=== PATIENT | female | born 1950 | race Caucasian/White ===

== ENCOUNTER → 2016-04-10 | Outpatient (CLI) | payer OTHER ==
[~2016-04-10] VITALS: Ht 154.9 cm; Wt 71.4 kg
[~2016-04-10] MED LIST: BUPRENORPHINE HC2 MG SL; CARVEDILOL6.25 MG PO; CLONIDINE 2; COREG; COREG CR20 MG PO; ENDOCET 10-3251 EACH; ENOXAPARIN40 MG/0.1 SUBQ; FENTANYL; FLEXERIL PO; FUROSEMIDE PO; HYDROCODON-ACE1 EAC5; INTRATHECAL MED; KEFLEX500 MG PO; LASIX 20 MG TAB20 MG; LASIX 20 MG TAB20 MG PO; LISINOPRIL5 MG; LOVENOX SQ; MEDROLDOSEPACK PO; NEURONTIN100 MG PO; NITROQUICK0.4 MG SL; OXYCODONE-ACET1 EAC2 PO; PERCOCET 10-321 EACH PO; PERCOCET 5-3251 EACH PO; VANCOMYCIN100 MG/M1 PO; ZOCOR20 MG PO
--- NOTE | ~2016-04-10 | HPC ---
[facility] [place] [address] PAIN MANAGEMENT CONSULTATION Name: MARJORIE WING Room #: REG SHERIF Gilbert.#: [id number] Admission: 04/10/16 Attend Phys: Lc Reyes MD Discharge: Date of : 50 Report #: [id number] THIS REPORT FOR: //name// CC: JODY SUAREZ DATE OF SERVICE: 04/10/2016 HISTORY OF PRESENT ILLNESS: The patient returns to pain clinic today for refill of her intrathecal infusion pump and she will need a replacement pump sometime within the next 6 months. Her CINDY is now down to 6 months. Today, she presents complaining of severe pain in the right knee. She says that when they put her knee in, they did not have the right side, so they just took one off the shelf. I am sure this is not true; however, she is continued to complain of pain and swelling in that knee. She also has low back pain with radiculopathy, which responded favorably to a transforaminal epidural injection, which was performed in January. She has a little complaint today of radicular symptom. Intrathecal pump infusing a combination of bupivacaine, clonidine and fentanyl. She has done well with current dosing, no changes will be necessary. PHYSICAL EXAMINATION: GENERAL: She is delightful, pleasant, alert and oriented, without signs of depression, anxiety. She is able to move from sitting to standing position, walks with antalgic features owing to the swelling in her right knee. She does not complain of radicular features. Straight leg raising is negative for radicular pain, but it does exacerbate pain in the knee joint. She has tenderness there. VITAL SIGNS: Blood pressure is 122/73, heart rate 58. She is 5 feet 1. BMI of 29.8. Pump is in the right lower quadrant. IMPRESSION: 1. Chronic back pain with radiculopathy. 2. Hypertension. 3. Osteoarthritis, status post right knee replacement with persistent right knee pain. 4. Management of intrathecal infusion pump with refill. She will need a new pump this year. 5. Management of high risk medication. I provided with some breakthrough oxycodone one tablet q. 6 hours as needed under terms of an opioid agreement. She uses 1 to 2 tablets a day, typically on occasion 4. She also uses gabapentin, which has been helpful for neuropathic symptoms. PROCEDURE: Skin was prepped with ChloraPrep, skin anesthetized 22-gauge [address] [address] PAIN MANAGEMENT CONSULTATION Name: MARJORIE WING [id number] Admission: 04/10/16 Attend Phys: Lc Reyes MD Discharge: Date of : 50 Report #: [id number] non-coring needle advanced in the pump. Old medication removed and discarded. Pump refilled with a combination of clonidine, bupivacaine and fentanyl. Reprogramming session was performed. She remains on low-dose maximally taking 143 mcg of fentanyl per day, clonidine, maximal 1436 mcg a day and bupivacaine 14 mg a day. This is quite a high dose of clonidine, but she has established, which she came to our clinic is been on the same dose for some time tolerating it well. PLAN: I renewed her pain medications under terms of an opioid agreement and we have reviewed the details with important aspects of safeguarding medications that are not out of her hands at any time. She is to get medication from only one physician, use one pharmacy. Followup visit planned in 1to 2 months. Information regarding this patient in our hope that Dr. Harding will replace her pump for us going forward in the next few months. <ELECTRONICALLY SIGNED> By: Lc Reyes MD 05/11/16 1130 1631 0054 Lc Reyes MD /nt
[2016-04-10 14:40] VITALS: BP 122/73
== END | disposition home or self-care (01) ==
LOC: PAIN 03-27 06:18
DX: M54.16 Radiculopathy, lumbar region (principal); I10 Essential (primary) hypertension; M17.11 Unilateral primary osteoarthritis, right knee; G89.29 Other chronic pain; Z96.651 Presence of right artificial knee joint

== ENCOUNTER → 2016-07-25 | Outpatient (CLI) | payer OTHER ==
[~2016-07-25] VITALS: Ht 154.9 cm; Wt 74.1 kg
--- NOTE | ~2016-07-25 | HPC ---
[facility] [place] [address] PAIN MANAGEMENT CONSULTATION Name: MARJORIE WING Room #: REG SHERIF Holland#: [id number] Admission: 07/25/16 Attend Phys: Ishmael Conte DO Discharge: Date of : 50 Report #: [id number] THIS REPORT FOR: //name// CC: KRISTIN Conte DATE OF SERVICE: 07/25/2016 SUBJECTIVE: The patient is a very pleasant 66-year-old female seen today in followup. She was last seen by Dr. Lc Reyes, on 06/03/2016, continued with her intrathecal pump. She had the pump replaced by Dr. Stephan Harding last week, 07/18/2016. A new 40 mL pump was implanted. It was refilled with fentanyl, clonidine and bupivacaine (fentanyl 200 mcg/mL, clonidine 2000 mcg/mL, bupivacaine 20 mg/mL). She is continued on simple continuous infusion with fentanyl being the driving drug at 85.07 mcg a day. She returns to the pain clinic today. She has been unable to use her PTM, it needs to be decoupled from the device. She notes pain that has been increasing in the low back since the surgery. PHYSICAL EXAMINATION: SKIN: The incision site in the abdomen looks excellent. It is healing quite nicely. No inflammation or induration is noted. VITAL SIGNS: She is afebrile with temperature 97.3. Vital signs are otherwise stable. ASSESSMENT: Status post intrathecal pump replacement, increasing axial back pain in a patient with a history of chronic low back pain and lumbar radiculopathy. RECOMMENDATIONS: After discussion with the patient today, we have elected to start the patient on [id number] nonsteroidal anti-inflammatory medication to help with prostaglandin-mediated axial back pain. Aleve 220 b.i.d. Continue p.r.n. medications including Percocet 10/325 up to 4 a day. The intrathecal pump was interrogated today. The new refill date is 09/04/2016. I will have her follow up with Dr. Lc Reyes next week for consideration for injecting into the facet joints if indicated and/or trigger point injections. Otherwise, we will ask her to bring the PTM with her, so we can decouple it and reinitiate it with her new pump. [address] [address] PAIN MANAGEMENT CONSULTATION Name: MARJORIE WING Room #: REG SHERIF Lino#: [id number] Admission: 07/25/16 Attend Phys: Ishmael Conte DO Discharge: Date of : 50 Report #: [id number] The patient was discharged in good and stable condition after approximately 15-minute office visit. <ELECTRONICALLY SIGNED> By: Ishmael Conte DO 07/26/16 0925 1523 0710 Ishmael Conte, DO /nt
[2016-07-25 14:33] VITALS: BP 129/88
== END ==
LOC: PAIN 08:03
DX: Z45.1 Encounter for adjustment and management of infusion pump (principal); M54.16 Radiculopathy, lumbar region; I10 Essential (primary) hypertension

== ENCOUNTER → 2016-08-01 | Outpatient (CLI) | payer OTHER ==
[~2016-08-01] VITALS: Ht 154.9 cm; Wt 69.3 kg
--- NOTE | ~2016-08-01 | HPC ---
[facility] [address] [place] [address] PAIN MANAGEMENT CONSULTATION Name: MARJORIE WING Room #: REG SHERIF Gilbert.#: [id number] Admission: 08/01/16 Attend Phys: Lc Reyes MD Discharge: Date of : 50 Report #: [id number] THIS REPORT FOR: //name// CC: Stephan SUAREZ DATE OF SERVICE: 08/01/2016 DATE OF REGISTRATION: 08/01/2016. REASON FOR VISIT: Followup visit for intrathecal pump management. SUBJECTIVE: I am seeing the patient today in followup for her recently placed intrathecal pump. She is recovering from surgery, although she had a period of time once again where she suffered with intractable nausea, vomiting and also diarrhea. Last time, this happened to her, condition was dire. She presented to the emergency room with an acute kidney failure due to dehydration. She developed C. difficile from antibiotics. Per emergency room physician in [facility], recognized immediately her condition, treated her aggressively with intravenous fluids, and she survived with complete resolution. has been grateful for his quick action. We were concerned today because of her similar symptoms, and she looks a little pale and gone. She says she feels okay. She is drinking well. Symptoms have passed. Nonetheless, I felt important that we would pursue some electrolytes today as well as a BUN and creatinine to make sure that she is not having further problems. Overall, pain control is adequate, although her PTM device is not working. I reprogrammed it for her while she was in the office. We adjusted her intrathecal infusion pump to the coupling. PHYSICAL EXAMINATION: GENERAL: She appears a bit pale. VITAL SIGNS: Her blood pressure is 135/88, heart rate is 60. Her BMI is 28.9. CHEST: Clear. CARDIAC: Rhythm is regular with no audible murmur. ABDOMEN: Soft. Pump is in the right lower quadrant with good healing, no evidence of infection. There is some fluid around the pocket, which is to be expected. IMPRESSION: 1. Chronic intractable low back pain with radiculopathy. 2. Hypertension. [facility] [address] [place] [address] PAIN MANAGEMENT CONSULTATION Name: MARJORIE WING Room #: REG SHERIF Lino#: [id number] Admission: 08/01/16 Attend Phys: Lc Reyes MD Discharge: Date of : 50 Report #: [id number] 3. Osteoarthritis, status post knee replacement. 4. Management of intrathecal infusion pump with new settings and reprogramming. 5. Management of high risk medications. 6. History of renal insufficiency. PLAN: Blood was sent for electrolytes, BUN and creatinine. It shows that she has some dehydration with an elevated creatinine and BUN. She was called to notify. Otherwise, electrolytes are normal. Followup visit is planned for refill in about 2-3 months. By: 1355 [id number] Lc Reyes MD /nt
[2016-08-01 09:33] VITALS: BP 166/89
[2016-08-01 11:06] LABS: CREATININE 1.3 mg/dL (0.6-1.0); POTASSIUM 3.9 mmol/L (3.5-5.1)
== END ==
LOC: PAIN 07:24
PROVIDERS: Anesthesiology Pain Medicine
DX: M54.10 Radiculopathy, site unspecified (principal); I10 Essential (primary) hypertension; G89.29 Other chronic pain; E11.9 Type 2 diabetes mellitus without complications

== ENCOUNTER 2016-08-13 20:13 | Inpatient (IN) | payer OTHER ==
[~2016-08-13] VITALS: Ht 152.4 cm; Wt 78.9 kg
[2016-08-13] VITALS (8 sets, daily range): BP systolic 72–164; BP diastolic 41–135
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
--- NOTE | ~2016-08-13 | 2DMMODE ---
[facility] [address] [place] [address] 2 D/M-MODE ECHOCARDIOGRAM Name: MARJORIE WING Room #: 236-P [facility]#: [id number] Admission: 08/13/16 Attend Phys: Harpal Cronin, Discharge: Date of : 50 Date of Service: 08/14/16 1241 Report #: [id number] THIS REPORT FOR: //name// APPROVED REPORT Study performed: 08/14/2016 08:45:21 EXAM: Comprehensive 2D, Doppler, and color-flow Echocardiogram Patient Location: Bedside Room #: 236 Blood Pressure: 130/70 mmHg HR: 56 bpm Rhythm: NSR Other Information Study Quality: Adequate Indications CAD, HTN, history of HI, defibrillator, cardiac arrest 2006 2D Dimensions RVDd: 33.99 mm LVEF(%): 47.95 (>50%) IVSd: 7.12 (7-11mm) LVOT Diam: 19.59 (18-24mm) LVDd: 45.39 mm PWd: 7.24 (7-11mm) Ascending Ao: 30.87 (22-36mm) LVDs: 34.49 (25-40mm) Aortic Root: 28.26 mm Carroll's LVEF: 47.95 % Volumes Left Atrial Volume (Systole) Single Plane 4CH: 31.48 mL Single Plane 2CH: 45.77 mL LA ESV Index: 24.00 mL/m2 Aortic Valve AoV Peak Slade.: 1.30 m/s AO Peak Gr.: 6.80 mmHg LVOT Max P.81 mmHg LVOT Max V: 0.98 m/s ALEJANDRA Vmax: 2.25 cm2 Mitral Valve E/A Ratio: 1.5 [facility] [place] [place] [address] 2 D/M-MODE ECHOCARDIOGRAM Name: MARJORIE WING Room #: 236-[facility]#: [id number] Admission: 08/13/16 Attend Phys: Harpal Cronin, Discharge: Date of : 50 Date of Service: 08/14/16 1241 Report #: [id number] MV Decel. Time: 175.49 ms MV E Max Slade.: 1.01 m/s MV A Slade.: 0.68 m/s MV PHT: 50.89 ms IVRT: 101.50 ms Pulmonary Valve PV Peak Slade.: 0.96 m/s PV Peak Gr.: 3.72 mmHg Pulmonary Vein P Vein S: 0.40 m/s P Vein A: 0.30 m/s P Vein D: 0.51 m/s P Vein A Dur.: 156.9 msec P Vein S/D Ratio: 0.78 Tricuspid Valve TR Peak Slade.: 2.16 m/s RAP Estimate: 5.00 mmHg TR Peak Gr.: 18.58 mmHg RVSP: 24.00 mmHg Left Ventricle The left ventricle is normal size. There is normal left ventricular wall thickness. Left ventricular systolic function is mildly decreased. Discordant septal motion possibly from RV pacing. LVEF is 45%. Grade II - pseudonormal filling dynamics. Right Ventricle The right ventricle is normal size. The right ventricular systolic function is normal. Device lead is present in the right ventricle. Atria The left atrium size is normal. The right atrium size is normal. Aortic Valve The aortic valve is normal in structure. No aortic regurgitation is present. There is no aortic valvular stenosis. Mitral Valve The mitral valve is normal in structure. Mild to moderate mitral regurgitation. No evidence of mitral valve stenosis. Tricuspid Valve The tricuspid valve is normal in structure. There is mild tricuspid regurgitation. The right atrial pressure is estimated at 5 mmHg. Estimated PAP is 24mmHg[place] [address] 2 D/M-MODE ECHOCARDIOGRAM Name: MARJORIE WING Room #: 236-P [facility].#: [id number] Admission: 08/13/16 Attend Phys: Harpal Cronin, Discharge: Date of : 50 Date of Service: 08/14/16 1241 Report #: [id number] The pulmonary valve is normal in structure. Trace to mild pulmonic regurgitation. Great Vessels The aortic root is normal in size. The ascending aorta is normal in size. IVC is normal in size and collapses >50% with inspiration. Pericardium There is no pericardial effusion. <Conclusion> Left ventricular systolic function is mildly decreased. Discordant septal motion possibly from RV pacing. LVEF is 45-50%. The aortic valve is normal in structure. There is no aortic valvular stenosis or insufficiency. The mitral valve is normal in structure. Mild to moderate mitral regurgitation. There is mild tricuspid regurgitation. The right atrial pressure is estimated at 5 mmHg. Estimated PAP is 24mmHg. There is no pericardial effusion. <ELECTRONICALLY SIGNED> By: Otto Nunes MD, FACC 08/14/16 1241 1241 1241 Otto Nunes MD, FACC /INF
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
--- NOTE | ~2016-08-13 | P ---
[facility] [place] [address] PROCEDURE REPORT Name: MARJORIE WING Room #: 458-P [facility] IN M.R.#: [id number] Admission: 08/13/16 Attend Phys: Harpal Cronin MD Discharge: Date of : 50 Report #: [id number] THIS REPORT FOR: //name// CC: Ap Fofaan MD DATE OF SERVICE: 08/15/2016 PROCEDURE: Diagnostic flexible sigmoidoscopy on the patient in 236 ICU. She is a 66-year-old patient of Dr. Harpal Cronin. INDICATION FOR PROCEDURE: The patient is a high risk for Clostridium difficile diarrhea yet her C. diff PCR came back negative. I was asked to do a flexible sigmoidoscopy to evaluate the colon and this is a limited exam to evaluate the colon for other etiologies of colitis. Informed consent for this procedure was obtained prior to the administration of any medication. The risks of the procedure which include bleeding, perforation, infection, complications of sedation and the possibility I could miss something have been explained to the patient and she has indicated her consent by signing. A total of fentanyl 100 mcg and Versed 6 mg was slowly titrated before and during this procedure for patient comfort by the GI nurses. A digital rectal exam was performed. The patient has a very tight anal sphincter. Yet, I was able to do the digital rectal exam and impede it. I could palpate no masses. Then, the Fujinon colonoscope was introduced through the anal sphincter and advanced under direct visualization to 25 cm, this is patient did tolerate even with sedation, the mucosa lining of the rectum appeared edematous and almost normal. The visualized portions of the sigmoid showed pseudomembrane formation. There is so much edema of the clark of the sigmoid colon that the lumen is completely collapsed because of the inflammatory process, but it does appear that she has yellow whitish colored pseudomembranes throughout this area at least up to 25 cm. I did not take any biopsies from this area or from the rectum. I did not retroflex in the rectum because it is just too uncomfortable for the patient. The scope was withdrawn. The patient was recovered in the room. She tolerated the procedure well. IMPRESSION: Colitis of the sigmoid colon and rectum with pseudomembranes in the sigmoid. Patient had enemas prior to this procedure, which may have cleared that the rectum of the pseudomembranes. I suspect this is probably C. diff colitis, recommendations would be for her to continue on vancomycin p.o. and the Flagyl IV. [address] [address] PROCEDURE REPORT Name: MARJORIE WING Room #: 458-P [facility] IN M.R.#: [id number] Admission: 08/13/16 Attend Phys: Harpal Cronin MD Discharge: Date of : 50 Report #: [id number] Thank you very much once again for allowing me to participate in her care, Dr. Cronin and Dr. George. <ELECTRONICALLY SIGNED> By: Cherise Weiss DO 08/21/16 1311 1630 2221 Cherise Weiss DO /nt
--- NOTE | ~2016-08-13 | EKG ---
[address] [address] ELECTROCARDIOGRAM REPORT Name: MARJORIE WING Room #: 236-P [facility] IN ..#: [id number] Admission: 08/13/16 Attend Phys: Harpal Cronin MD Discharge: Date of : 50 Report #: [id number] THIS REPORT FOR: //name// [facility] Test Date: 2016-08-13 Test Time: 22:18:26 Pat Name: MARJORIE WING Department: Room: Gender: F Client Relations Specialist: Latonya RANDHAWA : 1950 Requested By: Danielle Guerin Order Number: [id number] MD: Cj River Measurements Intervals [place] Rate: 91 P: 86 AL: 167 QRS: 53 QRSD: 72 T: -73 QT: 476 QTc: 586 Interpretive Statements Sinus rhythm Borderline T abnormalities, diffuse leads No previous ECG available for comparison Electronically Signed On 08-14-2016 9:37:30 CDT by Cj River [email or web address] <ELECTRONICALLY SIGNED> By: Cj River MD 08/14/16 0937 17 17 Cj River MD /HARDIK
--- NOTE | ~2016-08-13 | HC ---
[facility] [place] [address] CONSULTATION Name: MARJORIE WING Room #: 236-P [facility] IN .R.#: [id number] Admission: 08/13/16 Attend Phys: Harpal Cronin MD Discharge: Date of : 50 Report #: [id number] THIS REPORT FOR: //name// CC: Ap Gavin MD [facility] Harpal Fofana MD DATE OF SERVICE: 08/14/2016 PATIENT OF: Dr. Antonio Fofana and Dr. Cronin. CHIEF COMPLAINT: This is a very pleasant 66-year-old white female who apparently became ill suddenly on 08/11/2016. She did not feel well on Friday. The day after that, she became even more ill and started having bloody diarrhea and worsening abdominal pain. She had had a poor appetite for 3 weeks since having a pain pump replacement. She has a history of C. difficile diarrhea and on CT scan of the abdomen done at an outside facility interpretation indicated that she had thickening of the colon from the hepatic flexure all the way down through the rectum. The patient denies any chills or fevers, but she says she is always cold. Her white count is normal. Her stools are mildly bloody. Her hemoglobin is 14 and this is after 2 units of packed cells were transfused emergently before she came here from [facility] by . PAST MEDICAL HISTORY: Significant for a nonischemic cardiomyopathy. She had a history of cardiac arrest and had a pacer and defibrillator placed after that. She has got some bradycardia right now and she is hypotensive. She did fall prior to admission striking her head and we will see if she has had a CT scan of the abdomen and if not, she will need one. She has a history of hyperlipidemia. 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 She said she has had several myocardial infarctions. She has had no cardiac stents, though. She has a lot of arthritis, particularly in her hands. She has an elevated CPK-MB and troponin level. The cardiology things are not indicative of any coronary artery disease at this time. She also has a history of gastroesophageal reflux. PAST SURGICAL HISTORY: Significant for placement of a pain pump initially and then it was replaced 3 weeks ago. She had IV antibiotics at that time, which may have been enough to cause her C. diff to recur. She has a pacer defibrillator in her left shoulder area and has only been . She has had 4 back surgeries for her sciatica. She has had bilateral carpal tunnel repair. She had a right knee replacement and bilateral shoulder replacements. She has had a total abdominal hysterectomy with bilateral salpingo-oophorectomy. She [address] [place] [address] CONSULTATION Name: MECCAMARJORIE L Room #: 236-P [facility] IN ..#: [id number] Admission: 08/13/16 Attend Phys: Harpal Cronin MD Discharge: Date of : 50 Report #: [id number] has had an appendectomy. ALLERGIES: MORPHINE, SULFA, ASPIRIN, and CELEBREX. MEDICATIONS: Her medications prior to admission included carvedilol, Lasix, Neurontin, lisinopril, nitroglycerin, oxycodone with acetaminophen and Zocor. SOCIAL HISTORY: She does not smoke. She does not drink alcohol. FAMILY HISTORY: Negative for colon polyps, colon cancer, Crohn's disease or ulcerative colitis. It is significant for heart disease, 5 of her siblings in a 4-week period of heart disease. The patient is a twin and her twin sister is alive and she has one other brother that is alive. REVIEW OF SYSTEMS: She denies any dysphagia or odynophagia. She does have gastroesophageal reflux. She has no history of a hiatal hernia. She has had peptic ulcer disease in the past. She said her weight has been stable, but since her surgery about 3 weeks, she has had no appetite. Her albumin is really low at 1.4. She denies any hematemesis or melena. She has had hematochezia. She has had nausea and vomiting. She had diarrhea, no constipation. She complains of diffuse abdominal pain. She denies any history of jaundice, hepatitis, cholelithiasis, cholecystitis, or pancreatitis. She denies any fevers. She says she is always cold. PHYSICAL EXAMINATION: GENERAL: Reveals a well-developed, well-nourished 66-year-old white female, is in mild distress because of just feeling poorly. She is awake, alert, oriented x4, cooperative and pleasant to converse with. She is currently on pressors, Levophed specifically, HEART: Rate and rhythm are regular. LUNGS: Clear in all beckham bilaterally. ABDOMEN: Soft, pain pump is palpable in the right abdomen. There is a new scar where this pain pump has recently replaced. Bowel sounds are present in all 4 quadrants. There is no palpable organomegaly or mass that I can appreciate. There is tenderness in the lower quadrants and tenderness at Fontenot's point to palpation. There is no rebound or guarding. EXTREMITIES: Warm and dry with no peripheral cyanosis, clubbing, or edema. NEUROLOGIC: She appears grossly intact without lateralizing signs, but I did not test her extensively neurologically. CT scan of the abdomen done at [place] showed the colitis, a small fat containing umbilical hernia, a right renal cyst 2 x 2 cm, gallbladder is nondistended, common bile duct 6 mm. IMPRESSION: 1. Sudden onset of illness with nausea, vomiting and bloody diarrhea on Friday, [facility] [address] [place] [address] CONSULTATION Name: MARJORIE WING Room #: 236-P [facility] IN [facility]#: [id number] Admission: 08/13/16 Attend Phys: Harpal Cronin MD Discharge: Date of : 50 Report #: [id number] 08/11/2016. The next day Friday, she was worsening with increasing bloody diarrhea and lower abdominal pain. She denied any hematemesis or melena. She became hypotensive and fell and hit her head according to her chart. 2. History of Clostridium difficile diarrhea now probably Clostridium difficile colitis with wall thickening of the colon from the transverse through the rectum. 3. She has had a new pain pump placed 3 weeks ago and had antibiotics at that time that might have caused her Clostridium difficile to be reactivated. She has a cardiac history with multiple "heart attacks" and has a pacer defibrillator. Her troponin and CPK-MB are both elevated currently, but cardiology does not think these are significant. She says that 5 of her siblings have of heart attacks. 4. History of cerebrovascular accident with right facial weakness. 5. Tender in the right upper quadrant, twin sister and several other family members have had cholecystectomy, her alkaline phosphatase and total bilirubin are elevated, her total bilirubin is 1.6. 6. Gastroesophageal reflux. 7. History of peptic ulcer disease. 8. Acute renal insufficiency, creatinine is over 2. 9. No appetite for the last 3 weeks since her new pain pump was placed. 10. The patient is currently on pressors, but hemoglobin is 14, so she may be septic, but she does not appear to be in hemorrhagic shock, she appears to be third spacing. 11. She has had multiple orthopedic surgeries including bilateral carpal tunnel surgeries, 4 back surgeries for sciatica, right knee and bilateral shoulder replacements. She has had a total abdominal hysterectomy with bilateral salpingo-oophorectomy and appendectomy. She had a pain pump placed initially and then replaced 3 weeks ago and she has a pacer defibrillator. 12. Nonischemic cardiomyopathy with a history of cardiac arrest. 13. Hyperlipidemia. 14. Small umbilical fat containing hernia on CT scan. 15. Right upper quadrant tenderness to palpation. We will get an ultrasound of the abdomen. She may also need a PIPIDA. RECOMMENDATIONS: My recommendations are as follows: 1. We will fluid resuscitate as she is third spacing and is on pressors because she cannot maintain vascular volume, lower normal saline bolus at 250 an hour and then will continue at 125 an hour and then we will also start TPN with pharmacy managing her TPN because she is malnourished. 2. Agree with p.o. vancomycin and IV Flagyl. 3. Monitor H and H. She has a faint red color in her stool, it is minimal, tough her hemoglobin was 14 after 2 units of packed cells at [place], so I don't think she has bled significantly. 4. PPIs b.i.d. We will give those IV push. 5. We will plan to scope her when she is more stable, but this is not emergent at this time. [facility] [address] [place] [address] CONSULTATION Name: MARJORIE WING Room #: 236-P ADM IN M.R.#: [id number] Admission: 08/13/16 Attend Phys: Harpal Cronin MD Discharge: Date of : 50 Report #: [id number] 6. Agree with sending stools for culture and sensitivity, C. diff by PCR and WBCs. 7. Recheck labs in the morning. 8. We would CT her head as she fell and hit her head at home. Thank you very much once again for allowing me to participate in her care. <ELECTRONICALLY SIGNED> By: Cherise Weiss DO 08/14/16 2334 1037 1737 Cherise Weiss DO /nt
[2016-08-13 22:42] LABS: ABSOLUTE NEUTROPHILS 6.3 thou/uL (1.4-8.2); BASOPHILS 0.2 % (0.0-2.0); HEMATOCRIT 43.3 % (37.0-47.0); HEMOGLOBIN 14.4 gm/dL (12.0-15.0); LYMPHOCYTES 14.2 % (24.0-44.0); MCH 29.3 pg (26.0-34.0); MCHC 33.3 g/dL (28.0-37.0); MONOCYTES 8.7 % (1.0-8.0); PLATELET COUNT 111 thou/uL (150-400); POLYS 76.9 % (36.0-66.0); RBC 4.92 mil/uL (4.20-5.00); RDW 14.6 % (10.5-14.5); WBC 8.2 thou/uL (4.0-11.0)
[2016-08-13 22:43] LABS: MANUAL DIFF NO
[2016-08-13 22:56] LABS: ALBUMIN 2.7 g/dL (3.4-5.0); CALCIUM 7.7 mg/dL (8.5-10.1); CREATININE 2.7 mg/dL (0.6-1.0); POTASSIUM 4.7 mmol/L (3.5-5.1); TOTAL BILIRUBIN 1.1 mg/dL (<0.1-1.0); TOTAL PROTEIN 5.6 g/dL (6.4-8.2)
[2016-08-13 23:15] LABS: INR 1.1
[2016-08-13 23:15] LABS: URINE BILIRUBIN NEGATIVE (Negative); URINE BLOOD NEGATIVE (Negative); URINE COLOR YELLOW; URINE GLUCOSE-RANDOM* NEGATIVE (Negative); URINE KETONES NEGATIVE (Negative); URINE LEUKOCYTES-REFLEX NEGATIVE (Negative); URINE PROTEIN (DIPSTICK) NEGATIVE (Negative); URINE SPECIFIC GRAVITY <= 1.005 (1.003-1.035); URINE UROBILINOGEN 0.2 E.U./dl (0.2-1.0)
[2016-08-14] VITALS (70 sets, daily range): BP systolic 81–146; BP diastolic 44–103
[2016-08-14 05:03] LABS: HEMOGLOBIN 14.3 gm/dL (12.0-15.0); MCV 87.2 fL (80.0-100.0)
[2016-08-14 05:04] LABS: HEMATOCRIT 41.9 % (37.0-47.0); MCH 29.7 pg (26.0-34.0); MCHC 34.1 g/dL (28.0-37.0); RBC 4.81 mil/uL (4.20-5.00); RDW 14.4 % (10.5-14.5); WBC 10.6 thou/uL (4.0-11.0)
[2016-08-14 05:17] LABS: MANUAL DIFF YES
[2016-08-14 05:30] LABS: ALBUMIN 2.6 g/dL (3.4-5.0); CALCIUM 7.9 mg/dL (8.5-10.1); CREATININE 2.4 mg/dL (0.6-1.0); POTASSIUM 4.5 mmol/L (3.5-5.1); TOTAL BILIRUBIN 1.6 mg/dL (<0.1-1.0); TOTAL PROTEIN 5.4 g/dL (6.4-8.2)
[2016-08-14 05:35] LABS: TROPONIN-I 0.81 ng/mL (<0.04-0.07)
[2016-08-14 07:48] LABS: METAMYELOCYTES 1 %; TOTAL CELL COUNT 100
[2016-08-14 07:49] LABS: PLATELET COUNT 111 thou/uL (150-400)
[2016-08-14 07:50] LABS: ANISOCYTOSIS SLIGHT
[2016-08-15] VITALS (54 sets, daily range): BP systolic 94–162; BP diastolic 53–102
[2016-08-15 04:14] LABS: HEMATOCRIT 39.2 % (37.0-47.0); HEMOGLOBIN 13.2 gm/dL (12.0-15.0); MCH 29.5 pg (26.0-34.0); MCHC 33.7 g/dL (28.0-37.0); MCV 87.6 fL (80.0-100.0); PLATELET COUNT 102 thou/uL (150-400); RBC 4.47 mil/uL (4.20-5.00)
[2016-08-15 04:24] LABS: ALBUMIN 2.4 g/dL (3.4-5.0); CREATININE 1.9 mg/dL (0.6-1.0); MAGNESIUM 2.3 mg/dL (1.8-2.4); PHOSPHORUS 4.2 mg/dL (2.5-4.9); POTASSIUM 4.7 mmol/L (3.5-5.1); TOTAL BILIRUBIN 0.6 mg/dL (<0.1-1.0); TOTAL PROTEIN 5.3 g/dL (6.4-8.2)
[2016-08-15 04:39] LABS: MANUAL DIFF YES
[2016-08-15 05:31] LABS: ABSOLUTE NEUTROPHILS 7.5 thou/uL (1.4-8.2); ATYPICAL LYMPHS 2 %; LARGE PLATELETS OCCASIONAL; METAMYELOCYTES 1 %; TOTAL CELL COUNT 100
[2016-08-16] VITALS (34 sets, daily range): BP systolic 97–146; BP diastolic 60–104
[2016-08-16 05:36] LABS: ABSOLUTE NEUTROPHILS 6.7 thou/uL (1.4-8.2); BASOPHILS 0.3 % (0.0-2.0); HEMATOCRIT 36.9 % (37.0-47.0); HEMOGLOBIN 12.4 gm/dL (12.0-15.0); MCH 29.7 pg (26.0-34.0); MCHC 33.7 g/dL (28.0-37.0); MCV 87.9 fL (80.0-100.0); MONOCYTES 4.6 % (1.0-8.0); PLATELET COUNT 99 thou/uL (150-400); POLYS 80.1 % (36.0-66.0); RDW 15.2 % (10.5-14.5); WBC 8.4 thou/uL (4.0-11.0)
[2016-08-16 05:49] LABS: CREATININE 1.3 mg/dL (0.6-1.0); MANUAL DIFF NO; POTASSIUM 4.2 mmol/L (3.5-5.1)
[2016-08-16 06:55] LABS: PHOSPHORUS 2.3 mg/dL (2.5-4.9)
[2016-08-16 07:56] LABS: ANISOCYTOSIS 1+
[2016-08-17 04:19] VITALS: BP 118/71
[2016-08-17 05:35] LABS: CALCIUM 8.6 mg/dL (8.5-10.1); CREATININE 1.1 mg/dL (0.6-1.0); MAGNESIUM 1.7 mg/dL (1.8-2.4); POTASSIUM 4.3 mmol/L (3.5-5.1)
[2016-08-17 07:58] VITALS: BP 139/88
[2016-08-17 12:27] VITALS: BP 134/92
[2016-08-17 17:22] VITALS: BP 129/75
[2016-08-17 19:24] VITALS: BP 141/84
[2016-08-18 05:16] VITALS: BP 151/87
[2016-08-18 08:08] VITALS: BP 124/76
[2016-08-18 09:56] LABS: HEMATOCRIT 39.3 % (37.0-47.0); HEMOGLOBIN 13.3 gm/dL (12.0-15.0); MCH 29.2 pg (26.0-34.0); MCHC 33.7 g/dL (28.0-37.0); MCV 86.7 fL (80.0-100.0); RBC 4.54 mil/uL (4.20-5.00); WBC 6.7 thou/uL (4.0-11.0)
[2016-08-18 10:01] LABS: CALCIUM 8.7 mg/dL (8.5-10.1); POTASSIUM 4.2 mmol/L (3.5-5.1)
[2016-08-18 10:52] VITALS: BP 152/89
[2016-08-18 16:23] VITALS: BP 137/91
[2016-08-18 20:00] VITALS: BP 121/74
[2016-08-19 04:11] VITALS: BP 101/61
[2016-08-19 04:19] LABS: HEMOGLOBIN 12.8 gm/dL (12.0-15.0); MCH 29.4 pg (26.0-34.0); MCHC 33.6 g/dL (28.0-37.0); MCV 87.3 fL (80.0-100.0); RBC 4.36 mil/uL (4.20-5.00); RDW 15.4 % (10.5-14.5); WBC 7.9 thou/uL (4.0-11.0)
[2016-08-19 04:29] LABS: CALCIUM 8.5 mg/dL (8.5-10.1); POTASSIUM 4.5 mmol/L (3.5-5.1)
[2016-08-19 07:55] VITALS: BP 115/80
[2016-08-19 11:19] VITALS: BP 134/88
[2016-08-19 15:29] VITALS: BP 95/52
[2016-08-19 19:53] VITALS: BP 97/63
[2016-08-20 03:40] VITALS: BP 130/73
[2016-08-20 05:55] LABS: HEMATOCRIT 37.2 % (37.0-47.0); HEMOGLOBIN 12.6 gm/dL (12.0-15.0); MCH 29.3 pg (26.0-34.0); MCHC 33.9 g/dL (28.0-37.0); MCV 86.4 fL (80.0-100.0); RBC 4.31 mil/uL (4.20-5.00); WBC 9.5 thou/uL (4.0-11.0)
[2016-08-20 06:01] LABS: CALCIUM 8.6 mg/dL (8.5-10.1); POTASSIUM 4.1 mmol/L (3.5-5.1)
[2016-08-20 10:30] VITALS: BP 115/72
[2016-08-20 16:04] VITALS: BP 112/75
[2016-08-20 19:55] VITALS: BP 107/70
[2016-08-21 04:15] VITALS: BP 151/85
[2016-08-21 07:34] VITALS: BP 139/87
[2016-08-21] MEDS ORDERED: CARVEDILOL3.125 MG PO (10:41)
[2016-08-21] MEDS ORDERED: VANCOMYCIN100 MG/M2 PO (10:41)
[2016-08-21] MEDS ORDERED: ACIDOPHILUS1 EAC4 PO (10:42)
[2016-08-21 11:45] VITALS: BP 95/61
== END 2016-08-21 14:54 | DRG 871 ==
LOC: ICU 20:13 → 4W 22:34
PROVIDERS: Internal Medicine; Internal Medicine Gastroenterology; Nurse Practitioner Family; Specialist
PROC: 0DJD8ZZ Inspection of Lower Intestinal Tract, Via Natural or Artificial Opening Endoscopic (ICD-10-PCS; principal; 2016-08-15)
PROC: 3E0336Z Introduction of Nutritional Substance into Peripheral Vein, Percutaneous Approach (ICD-10-PCS; 2016-08-15)
PROC: 05HM33Z Insertion of Infusion Device into Right Internal Jugular Vein, Percutaneous Approach (ICD-10-PCS; 2016-08-16)
PROC: 05PYX3Z Removal of Infusion Device from Upper Vein, External Approach (ICD-10-PCS; 2016-08-16)
DX: A41.9 Sepsis, unspecified organism (principal); I21.4 Non-ST elevation (NSTEMI) myocardial infarction; K92.2 Gastrointestinal hemorrhage, unspecified; R57.9 Shock, unspecified; N17.9 Acute kidney failure, unspecified; I42.9 Cardiomyopathy, unspecified; D62 Acute posthemorrhagic anemia; E87.2 Acidosis; I13.0 Hypertensive heart and chronic kidney disease with heart failure and stage 1 through stage 4 chronic kidney disease, or unspecified chronic kidney disease; A04.7 Enterocolitis due to Clostridium difficile; I50.22 Chronic systolic (congestive) heart failure; G89.29 Other chronic pain; M54.5 Low back pain; Z96.651 Presence of right artificial knee joint; I25.10 Atherosclerotic heart disease of native coronary artery without angina pectoris; K21.9 Gastro-esophageal reflux disease without esophagitis; Z96.612 Presence of left artificial shoulder joint; Z96.611 Presence of right artificial shoulder joint; E78.5 Hyperlipidemia, unspecified; K42.9 Umbilical hernia without obstruction or gangrene; E66.09 Other obesity due to excess calories; N18.9 Chronic kidney disease, unspecified; E78.00 Pure hypercholesterolemia, unspecified; Z68.34 Body mass index [BMI] 34.0-34.9, adult; Z88.5 Allergy status to narcotic agent; Z86.74 Personal history of sudden cardiac arrest; Z88.6 Allergy status to analgesic agent; Z82.49 Family history of ischemic heart disease and other diseases of the circulatory system; Z90.49 Acquired absence of other specified parts of digestive tract; Z90.710 Acquired absence of both cervix and uterus; I69.392 Facial weakness following cerebral infarction; Z87.11 Personal history of peptic ulcer disease; Z88.2 Allergy status to sulfonamides; Z88.1 Allergy status to other antibiotic agents; Z91.030 Bee allergy status; Z95.810 Presence of automatic (implantable) cardiac defibrillator
CPT/HCPCS: 10045; 10047; 10078

== ENCOUNTER 2016-08-21 10:32 | Inpatient (IN) | payer OTHER ==
[~2016-08-21] VITALS: Ht 152.4 cm; Wt 73.7 kg
--- NOTE | ~2016-08-21 | PLAN ---
[facility] [place] [address] REHAB UNIT PLAN OF CARE Name: MARJORIE WING Room #: 516-1 ADM IN M.R.#: [id number] Admission: 08/21/16 Attend Phys: Adolfo Owens MD Discharge: Date of : 50 Report #: [id number] THIS REPORT FOR: //name// CC: Adolfo SUAREZ HISTORY OF PRESENT ILLNESS: The patient is seen back today in followup. She is in no distress. Last recorded temperature 36.4, pulse 63, respirations 18, blood pressure 103/63. The patient is pleasant, alert, overall feeling a little better. She is not having quite as many loose stools as she was having. She is working in therapies with transfers now with standby assistance. In occupational therapy, upper body dressing is supervision with lower body dressing is min assist. She is contact guard ambulating 120 feet without a device. We have started working on stairs. ASSESSMENT: 1. Medical complexity with generalized debilitation. 2. Pseudomembranous enterocolitis continuing on treatment with p.o. vancomycin for C. diff per Infectious Disease. 3. Acute renal insufficiency superimposed on chronic kidney disease. 4. Hemorrhagic shock, which resolved. 5. Initial acute blood loss anemia. 6. Chronic pain with pain pump. 7. AICD with pacemaker. 8. Hypertension. 9. Right total knee replacement. PLAN: The overall plan of care is based on the preadmission screen, post-admission physician evaluation and information garnered from therapy assessments. 1. Estimated length of stay is through Friday. Plan is for discharge home on Friday. We will need some home healthcare at that time. 2. Medical prognosis is reasonably good. 3. Anticipated interventions includes the interdisciplinary acute inpatient rehabilitation program with PT and OT working with her, rehab nursing assisting regarding medication management, skin care prophylaxis, bowel and bladder issues and nursing education. Case management is involved as well as the multiple sr. consultant physicians. 4. Anticipated functional outcomes would be for the patient to become modified independent with gait, mobility and ADLs and to improve as far as her overall diarrhea, so that she can be safe back in the home setting. 5. Discharge destination would be back home where she lives with her in a mobile home. 6. Expected therapy by discipline includes PT and OT 1-1/2 hours per day each [address] [address] REHAB UNIT PLAN OF CARE Name: SHIVA WINGFranklyn Mitchell Room #: 516-1 ADM IN [facility]#: [id number] Admission: 08/21/16 Attend Phys: Adolfo Owens MD Discharge: Date of : 50 Report #: [id number] five days a week throughout the duration of the acute inpatient rehabilitation stay. By: [id number] Adolfo Owens MD /nt
--- NOTE | ~2016-08-21 | H ---
[facility] José Luis [place] [address] HISTORY AND PHYSICAL Name: MARJORIE WING Room #: 516-1 ADM IN M.R.#: [id number] Admission: 08/21/16 Attend Phys: Adolfo Owens MD Discharge: Date of : 50 Report #: [id number] THIS REPORT FOR: //name// CC: Adolfo SUAREZ DATE OF SERVICE: 08/22/2016 HISTORY OF PRESENT ILLNESS: The patient is a 66-year-old white female originally admitted to [facility] with diarrhea, noted to be hypotensive with profuse bloody diarrhea and was diagnosed with hemorrhagic shock. She had acute blood loss anemia. Also was noted to be a fall with trauma to the head. She was transferred to [facility] for further evaluation and medical management. She got a flexible sigmoidoscopy that revealed pseudomembranous colitis. She had acute on chronic renal failure that improved. She was placed on vancomycin p.o. and Flagyl IV. Infectious Disease's involved and there is consideration for a possible fecal transplant. She does have some anorexia. She was on TPN before that was discontinued. She had some lactic acidosis initially, which has resolved. She was noted to have medical complexity with generalized debilitation and has now been admitted for acute in-hospital inpatient rehabilitation. PAST MEDICAL HISTORY: Includes an AR in 2006. She has an automatic implantable cardiac defibrillator with pacer in 2006. She had an intrathecal pain pump placed and has the pump itself in her right abdominal area. She has a history of carpal tunnel syndrome with 4 surgeries, history of back surgery, CHF, right knee replacement, right rotator cuff repair. MEDICATIONS: Please see the full medication listing. HABITS: No tobacco or alcohol. ALLERGIES: MORPHINE CAUSING SWELLING, ASPIRIN, BEESTINGS, HYDROMORPHONE FROM DILAUDID, AND SULFA. SOCIAL HISTORY: Lives in a mobile home with her . 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 The patient was premorbidly independent with functional mobility. She does have a walker. notes that he would be able to care for her if she was stronger and doing better. REVIEW OF SYSTEMS: Still has some liquid stools. Decreased appetite. No complaints of chest pain, shortness of breath. She has some abdominal discomfort with the loose stools. She notes generalized overall weakness. She has chronic pain syndrome in her lower back. No focal extremity pain complaints per se. [address] [address] HISTORY AND PHYSICAL Name: MARJORIE WING Room #: 516-1 [facility] IN [facility]#: [id number] Admission: 08/21/16 Attend Phys: Adolfo Owens MD Discharge: Date of : 50 Report #: [id number] PHYSICAL EXAMINATION: GENERAL: A 66-year-old white male, in no obvious distress. She is alert, pleasant. VITAL SIGNS: Last recorded temperature 35.8, pulse 64, respirations 16, and blood pressure 140/78. HEENT: Appeared to be benign. Cranial nerves are grossly intact. Facies are symmetric. CHEST: Sounded clear to auscultation. CARDIAC: Regular rate and rhythm. ABDOMEN: Bowel sounds positive, mild diffuse tenderness. GENITOURINARY AND RECTAL: Deferred. Functional range of motion of both upper extremities with strength grade 4-/5. DTRs are trace to 1. LOWER EXTREMITIES: There is no focal calf swelling. EXTREMITIES: Functional range of motion with strength grade 3+ to 4-/5. DTRs are trace to 1. She has fair endurance with attempting to don and doff her socks. ASSESSMENT: A 66-year-old white female with the following problem list: 1. Medical complexity with generalized debilitation. 2. Profuse bloody diarrhea with noted pseudomembranous enterocolitis. 3. Acute renal failure superimposed on chronic kidney disease. 4. Hemorrhagic shock, which has resolved. 5. Acute blood loss anemia. 6. Initial fall with trauma to the head. CT of the head itself was negative. 7. Chronic pain with pain pump. 8. AICD with pacemaker. 9. Hypertension. 10. Right total knee replacement. 11. Exogenous obesity. PLAN: The patient is admitted for acute in-hospital inpatient rehabilitation. From a post-admission physician evaluation perspective, there are no relevant changes since the preadmission screening. Please see the above review of prior and current medical and functional conditions and comorbidities. Please see the patient's prior and current functional status. As far as risk of complication, she has the multiple medical comorbidities as noted above. Initial plan of care involves the interdisciplinary acute inpatient rehabilitation program with the goal of maximizing the patient's functional independence, so that she can hopefully return back to her prior living situation. Measurable functional goals would be for her to become modified independent with transfers, mobility, and ADLs and to improve her overall endurance and strength and hopefully improve her stools, so that she does not have the loose stools. The goal is to return back to the home setting with her . Prognosis is reasonably good with estimated length of stay probably at least 7-14 days pending progress. Potential barriers would include her multiple medical comorbidities and decreased functional status. [facility] [address] [place] [address] HISTORY AND PHYSICAL Name: MARJORIE WING Room #: 516-1 ADM IN .R.#: [id number] Admission: 08/21/16 Attend Phys: Adolfo Owens MD Discharge: Date of : 50 Report #: [id number] The patient meets diagnostic criteria for an acute in-hospital inpatient rehabilitation stay. She meets medical necessity criteria and GI will be continuing to follow along with Infectious Disease as they will be consulted while she is on the acute rehab rincon. Internal Medicine is involved as well. She does have the tolerance for an acute in-hospital inpatient rehabilitation program and has appropriate discharge goals back to the home setting. <ELECTRONICALLY SIGNED> By: Adolfo Owens MD 08/23/16 1556 1335 1434 Adolfo Owens MD /nt
--- NOTE | ~2016-08-21 | HC ---
[facility] [place] [address] CONSULTATION Name: MARJORIE WING Room #: 516-1 ADM IN M.R.#: [id number] Admission: 08/21/16 Attend Phys: Adolfo Owens MD Discharge: Date of : 50 Report #: [id number] THIS REPORT FOR: //name// CC: Adolfo SUAREZ DATE OF SERVICE: 08/24/2016 NEURO BEHAVIORAL STATUS ATTENDING PHYSICIAN: Adolfo Owens M.D. RV SERVICE TECHNICIAN: Adi Al, Ph.D. CLINICAL PRESENTATION: The patient is a 66-year-old female, admitted to [facility] rehabilitation unit for comprehensive inpatient rehabilitation program to improve functional mobility, activities of daily living and self-care and mental status secondary to medical complexity and generalized debility. Her assessment also includes acute renal failure superimposed on chronic kidney disease, perfuse bloody diarrhea with pseudomembranous enterocolitis, hemorrhagic shock, acute blood loss anemia, initial fall with trauma to the head, CT scan that was negative, chronic pain with pain pump, hypertension, right total knee replacement, exogenous obesity and AICD with pacemaker. A complete description of her medical condition, history and medications can be found in her medical record. Neuropsychological consultation was requested to provide assistance in the assessment of cognitive and emotional status and to provide recommendations and services. Prior to this most recent admission, the patient reports being independent with basic and instrumental activities of daily living. She had 2 children. One child about 4 years ago. They had a child lives in [place]. The patient is a high school graduate. She worked for prior to her snf. She is a high school graduate. TECHNIQUES UTILIZED: Clinical interview, review of medical records, staff consultation and behavioral observation; mini mental status exam 2, standard version; and family interview -- , and verbal fluency assessment (category). EXAMINATION FINDINGS: The patient was alert and cooperative with the assessment. She does not report auditory or visual hallucinations. There is no evidence of thought disorder. She does not report depression. She denies subjective anxiety, although her mood does appear mildly anxious. Longstanding sleep disorder is reported. She indicates that her appetite, memory, word finding are all within normal limits. She does report having had the stroke in 2006, but feels like she had resolved. Her does not report her [facility] [address] [place] [address] CONSULTATION Name: MARJORIE WING Stephen Room #: 516-1 [facility] IN ..#: [id number] Admission: 08/21/16 Attend Phys: Adolfo Owens MD Discharge: Date of : 50 Report #: [id number] having any noticeable difficulty with mood or cognitive function. Her performance on the MMSE 2 brief version was extremely low with a raw score of 11 and a T score of 19. She was 3/3 for initial registration, 4/5 for orientation to time, 3/[address] and 1/3 correct for immediate recall of 3 items after a brief time delay and distraction. Performance on the MMSE 2 standard version was in the moderate range of impairment with raw score 23/30 and T score of 33. She was 3/5 for serial 7's. Category fluency was extremely low with a raw score of 9. DIAGNOSTIC IMPRESSION: Neurocognitive disorder, unspecified, with decreased insight, extent to be determined likely in the moderate range. Unspecified anxiety disorder. RECOMMENDATIONS: The patient may require increased assistance in the management of medication upon discharge. Variability in cognitive functioning is suggested. She lacks insight into that which places her at increased safety risk. Current symptoms may be related to lingering symptoms from head trauma from a fall along with residual symptoms from her stroke in 2006. A followup neuropsych assessment will help clarify the severity of cognitive deficits. Thank you very much for allowing me to provide the consultation on this patient. By: [id number] Adi Al, PhD /nt
[2016-08-21] MEDS ORDERED: CARVEDILOL3.125 MG PO (10:41)
[2016-08-21] MEDS ORDERED: VANCOMYCIN100 MG/M2 PO (10:41)
[2016-08-21] MEDS ORDERED: ACIDOPHILUS1 EAC4 PO (10:42)
[2016-08-21 16:22] VITALS: BP 110/70
[2016-08-22 05:58] VITALS: BP 140/78
[2016-08-22 06:26] LABS: HEMOGLOBIN 12.8 gm/dL (12.0-15.0); MCHC 33.8 g/dL (28.0-37.0); MCV 85.8 fL (80.0-100.0); RBC 4.42 mil/uL (4.20-5.00); WBC 10.1 thou/uL (4.0-11.0)
[2016-08-22 06:33] LABS: CALCIUM 8.7 mg/dL (8.5-10.1); POTASSIUM 4.2 mmol/L (3.5-5.1)
[2016-08-22 16:00] VITALS: BP 100/60
[2016-08-23 04:41] VITALS: BP 103/63
[2016-08-24 06:01] VITALS: BP 126/81
[2016-08-24 16:07] VITALS: BP 146/87
[2016-08-25 03:44] VITALS: BP 147/81
[2016-08-25 15:19] VITALS: BP 140/70
[2016-08-26 06:25] VITALS: BP 143/77
[2016-08-26] MEDS ORDERED: PREVALITE PACKE1 PKT PO (10:46)
[2016-08-26] MEDS ORDERED: NITROGLYCERIN0.4 MG SUBLING (10:46)
[2016-08-26] MEDS ORDERED: VANCOMYCIN100 MG/M2 PO ×2 (10:46→10:47)
[2016-08-26 16:00] VITALS: BP 142/78
[2016-08-27 05:00] VITALS: BP 110/59
[2016-08-27 05:49] LABS: ABSOLUTE NEUTROPHILS 4.9 thou/uL (1.4-8.2); BASOPHILS 2.4 % (0.0-2.0); EOSINOPHILS 2.7 % (0.0-3.0); HEMATOCRIT 37.7 % (37.0-47.0); HEMOGLOBIN 12.5 gm/dL (12.0-15.0); LYMPHOCYTES 18.4 % (24.0-44.0); MCH 28.9 pg (26.0-34.0); MCHC 33.1 g/dL (28.0-37.0); MCV 87.5 fL (80.0-100.0); MONOCYTES 8.1 % (1.0-8.0); PLATELET COUNT 336 thou/uL (150-400); POLYS 68.4 % (36.0-66.0); RBC 4.31 mil/uL (4.20-5.00); RDW 15.1 % (10.5-14.5); WBC 7.2 thou/uL (4.0-11.0)
[2016-08-27 05:53] LABS: MANUAL DIFF NO
[2016-08-27 06:08] LABS: CALCIUM 9.2 mg/dL (8.5-10.1); CREATININE 1.1 mg/dL (0.6-1.0); MAGNESIUM 2.2 mg/dL (1.8-2.4); POTASSIUM 4.8 mmol/L (3.5-5.1)
[2016-08-27 14:24] VITALS: BP 93/40
[2016-08-27 14:38] VITALS: BP 93/40
== END 2016-08-27 16:15 | disposition home or self-care (01) | DRG 948 ==
PROVIDERS: Nurse Practitioner; Physical Medicine & Rehabilitation
DX: R53.81 Other malaise (principal); D62 Acute posthemorrhagic anemia; I13.0 Hypertensive heart and chronic kidney disease with heart failure and stage 1 through stage 4 chronic kidney disease, or unspecified chronic kidney disease; I50.22 Chronic systolic (congestive) heart failure; N17.9 Acute kidney failure, unspecified; A04.7 Enterocolitis due to Clostridium difficile; E87.2 Acidosis; G89.29 Other chronic pain; Z96.651 Presence of right artificial knee joint; G31.84 Mild cognitive impairment of uncertain or unknown etiology; N18.9 Chronic kidney disease, unspecified; F41.9 Anxiety disorder, unspecified; R19.7 Diarrhea, unspecified; E66.09 Other obesity due to excess calories; Z68.31 Body mass index [BMI] 31.0-31.9, adult; R51 Headache; Z79.899 Other long term (current) drug therapy; Z88.8 Allergy status to other drugs, medicaments and biological substances; Z90.710 Acquired absence of both cervix and uterus; Z90.49 Acquired absence of other specified parts of digestive tract; Z95.810 Presence of automatic (implantable) cardiac defibrillator; Z88.6 Allergy status to analgesic agent; Z88.2 Allergy status to sulfonamides
CPT/HCPCS: 10112

== ENCOUNTER → 2016-09-12 | Outpatient (CLI) | payer OTHER ==
[~2016-09-12] VITALS: Ht 152.4 cm; Wt 67.6 kg
[~2016-09-12] MED LIST changes: +ACIDOPHILUS1 EAC4 PO; +CARVEDILOL3.125 MG PO; +NITROGLYCERIN0.4 MG SUBLING; +PREVALITE PACKE1 PKT PO; +VANCOMYCIN100 MG/M2 PO
--- NOTE | ~2016-09-12 | HPC ---
[facility] [address] [place] [address] PAIN MANAGEMENT CONSULTATION Name: MARJORIE WING Room #: REG SHERIF Holland#: [id number] Admission: 09/12/16 Attend Phys: Lc Reyes MD Discharge: Date of : 50 Report #: [id number] THIS REPORT FOR: //name// CC: Lc SUAREZ DATE OF SERVICE: 09/12/2016 Followup visit for management of intrathecal infusion pump. The patient is returning in the pain clinic today for refill of her new [address] Harding replaced this. She was given an antibiotic strength surgery and once again developed C. difficile. She was hospitalized after having severe diarrhea and becoming in hypovolemic. She was in the ICU for a period of time. She was able to return back to baseline, but she still feels a little puny. She is here today for her basic pump refill. Pump was infusing a combination of fentanyl, low dose clonidine and bupivacaine. No changes were made on that medication today. With the 40 mL pump, her refill interval is now extended to 60 days or so. Potential risks and benefits of the refill were discussed. She would like to proceed. IMPRESSION: 1. Chronic intractable low back pain with radiculopathy. 2. Management of high risk medications. 3. Intrathecal infusion pump with renewed settings and programming with refill. 4. Renal insufficiency. 5. Recent Clostridium difficile cystocele. 6. Hypertension. Refill and reprogramming. PROCEDURE: The skin was prepped with ChloraPrep, skin anesthetized and a 22-gauge non-coring needle advanced in the pump. Old medication removed and discarded. Pump was refilled with fentanyl, bupivacaine and clonidine. Reprogramming session performed. Daily doses were left unchanged. Followup visit is scheduled in a roughly 2 months. By: [id number] Lc Reyes MD /nt
[2016-09-12 13:38] VITALS: BP 141/63
== END | disposition home or self-care (01) ==
LOC: PAIN 06:44
DX: M54.16 Radiculopathy, lumbar region (principal); G89.4 Chronic pain syndrome; I10 Essential (primary) hypertension; N28.9 Disorder of kidney and ureter, unspecified; N81.10 Cystocele, unspecified; F11.20 Opioid dependence, uncomplicated; A04.7 Enterocolitis due to Clostridium difficile; Z88.2 Allergy status to sulfonamides; Z88.8 Allergy status to other drugs, medicaments and biological substances; Z79.899 Other long term (current) drug therapy; Z98.890 Other specified postprocedural states

== ENCOUNTER → 2016-11-07 | Outpatient (CLI) | payer OTHER ==
[~2016-11-07] VITALS: Ht 154.9 cm; Wt 70.3 kg
[~2016-11-07] MED LIST changes: +LISINOPRIL2.5 MG PO
--- NOTE | ~2016-11-07 | HPC ---
[facility] [address] [place] [address] PAIN MANAGEMENT CONSULTATION Name: MARJORIE WING Room #: REG SHERIF Hunt#: [id number] Admission: 11/07/16 Attend Phys: Lc Reyes MD Discharge: Date of : 50 Report #: [id number] THIS REPORT FOR: //name// CC: Lc Fofana MD DATE OF SERVICE: 11/07/2016 DATE OF REGISTRATION: 11/07/2016 Followup visit for refill of intrathecal infusion pump. The patient returns to clinic today and is doing very well. She scores her pain with her intrathecal medication today as 8/10, although she says that she is feeling as good as she has felt in some time. Pain is mostly across her low back and into her right shoulder. She has recovered from her surgery. MEDICATIONS: Reviewed and reconciled. ALLERGIES: SULFA, MORPHINE AND ASPIRIN. PHYSICAL EXAMINATION: Blood pressure is 106/55, heart rate 62, respirations 14. She is pleasant, alert and oriented. Affect is really upbeat today. She has tenderness in her neck and her shoulder, tenderness in her arm. Pain is in good position with no abdominal tenderness. IMPRESSION: 1. Severe right shoulder pain. 2. Management of intrathecal infusion pump. 3. Idiopathic nonischemic cardiomyopathy. 4. History of ICD placement. 5. Hypertension. PLAN: Refill intrathecal infusion pump. DESCRIPTION OF PROCEDURE: Skin was prepped with ChloraPrep, skin anesthetized and a 22-gauge non-coring needle advanced in the intrathecal pump. Old medication removed and discarded. Pump was then refilled with a combination of bupivacaine 20 mg, clonidine 2000 mcg, fentanyl, 200 mcg/mL. A 40 mL was instilled into the pump and a reprogramming session performed. Refills now scheduled for 12/28/2016, 51 days. This is with maximum activations. We will try and stretch this into December. [address] [address] PAIN MANAGEMENT CONSULTATION Name: MARJORIE WING Stephen Room #: REG CLI Holland#: [id number] Admission: 11/07/16 Attend Phys: Lc Reyes MD Discharge: Date of : 50 Report #: [id number] No refill prescription provided today. We will see her back in the pain clinic in 2 months. By: [id number] Lc Reyes MD /nt
[2016-11-07 11:03] VITALS: BP 106/55
== END ==
LOC: PAIN 06:52
DX: Z45.1 Encounter for adjustment and management of infusion pump (principal); M25.511 Pain in right shoulder; I42.8 Other cardiomyopathies; I10 Essential (primary) hypertension; Z88.2 Allergy status to sulfonamides; Z88.5 Allergy status to narcotic agent; Z88.6 Allergy status to analgesic agent; Z79.899 Other long term (current) drug therapy

== ENCOUNTER → 2016-12-30 | Outpatient (CLI) | payer OTHER ==
[~2016-12-30] VITALS: Ht 149.9 cm; Wt 67.6 kg
--- NOTE | ~2016-12-30 | HPC ---
[facility] [address] [place] [address] PAIN MANAGEMENT CONSULTATION Name: MARJORIE WING Room #: REG SHERIF HanksLuisLatoyaLuis#: [id number] Admission: 12/30/16 Attend Phys: Lc Reyes MD Discharge: Date of : 50 Report #: [id number] THIS REPORT FOR: //name// CC: Lc SUAREZ DATE OF SERVICE: 12/30/2016 Followup visit for management of intrathecal infusion pump with refill and management of high-risk medications supplement small dose under terms of an opioid agreement. The patient returns to the pain clinic today for refill of her intrathecal pump. She has a combination of bupivacaine, clonidine and fentanyl. Current daily dose maximum with use of her PA is 143 mcg of fentanyl, 135 mcg of clonidine and 14 mcg of bupivacaine. She has done very well with this using an occasional supplement of oxycodone 10/325. I provided her with a prescription for 120 tablets with a second prescription for release in 4 weeks. The 240 tablets provided for her typically enough to allow for good pain relief for about 3-4 months. She safeguards her medication carefully under terms of our opioid agreement. Previous urine drug screens and buccal screens have been appropriate for provided medications. PHYSICAL EXAMINATION: She is pleasant, outgoing. No signs of overmedication, depression or anxiety. Blood pressure is 128/62, heart rate 78. BMI is 30.1. Pump is in the right lower quadrant of the abdomen, nontender. She has pain across her low back and some straight leg raising discomfort radiating into the right leg consistent with radiculopathy. IMPRESSION: 1. Chronic low back pain with radiculopathy. 2. Severe right shoulder pain with osteoarthritis. 3. Idiopathic nonischemic cardiomyopathy. 4. History of implantable cardioverter-defibrillator placement. 5. Hypertension. 6. Management of intrathecal infusion pump. 7. Management of high-risk medications under terms of an opioid agreement. PLAN: 1. I renewed her medications of oxycodone with safeguarding requirements discussed. 2. Refill intrathecal infusion pump. Skin was prepped with ChloraPrep, skin anesthetized and a 22-gauge non-coring needle advanced in the pump. Old medication removed and discarded. Pump was refilled with a combination of bupivacaine 20, fentanyl 200, clonidine [address] [address] PAIN MANAGEMENT CONSULTATION Name: MARJORIE WING Room #: REG SHERIF Lino#: [id number] Admission: 12/30/16 Attend Phys: Lc Reyes MD Discharge: Date of : 50 Report #: [id number] Reprogramming session was performed. She tolerated the procedure well and was discharged in good condition with a copy of her information provided. Plan is to see her back in the pain clinic for her next refill in about 53 days. By: 1612 [id number] Lc Reyes MD /nt
[2016-12-30 12:35] VITALS: BP 128/62
== END | disposition home or self-care (01) ==
LOC: PAIN 07:29
DX: Z45.1 Encounter for adjustment and management of infusion pump (principal); M19.011 Primary osteoarthritis, right shoulder; I42.8 Other cardiomyopathies; I10 Essential (primary) hypertension; Z68.30 Body mass index [BMI] 30.0-30.9, adult

== ENCOUNTER → 2017-03-03 | Outpatient (CLI) | payer OTHER ==
[~2017-03-03] VITALS: Ht 149.9 cm; Wt 71.3 kg
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
[2017-03-03 11:20] VITALS: BP 152/88
== END | disposition home or self-care (01) ==
LOC: PAIN 06:40
DX: Z45.1 Encounter for adjustment and management of infusion pump (principal); M54.16 Radiculopathy, lumbar region; G89.29 Other chronic pain; M19.011 Primary osteoarthritis, right shoulder; I10 Essential (primary) hypertension; I25.5 Ischemic cardiomyopathy; Z88.2 Allergy status to sulfonamides; Z95.810 Presence of automatic (implantable) cardiac defibrillator; Z79.891 Long term (current) use of opiate analgesic; Z88.6 Allergy status to analgesic agent; Z79.899 Other long term (current) drug therapy

== ENCOUNTER → 2017-04-28 | Outpatient (CLI) | payer OTHER ==
[~2017-04-28] VITALS: Ht 149.9 cm; Wt 72.3 kg
[~2017-04-28] MED LIST changes: +OMEPRAZOLE 20 M20 M1 PO
--- NOTE | ~2017-04-28 | HPC ---
[facility] [address] [place] [address] PAIN MANAGEMENT CONSULTATION Name: MARJORIE WING Room #: REG SHERIF Holland#: [id number] Admission: 04/28/17 Attend Phys: Lc Reyes MD Discharge: Date of : 50 Report #: [id number] THIS REPORT FOR: //name// CC: Lc SUAREZ DATE OF SERVICE: 04/28/2017 Followup visit for management of intrathecal infusion pump. The patient returns to pain clinic today for refill of her intrathecal infusion pump. She is doing well. Her only change in history since last visit on 03/03/2017 is that she has had surgery on her hand. She is doing well. She has had previous Dupuytren contraction release and she thinks that this is going to be helpful. She has a brace on her right hand. Her intrathecal pump continues to provide good pain relief for her and I do allow her to supplement her intrathecal pump with a small amount of systemic opioid. She receives under her agreement hydrocodone 10/325, 90 tablets per month for a total of 45 MME. She has had no misuse or abuse. No evidence of side effects or other complications. She understands the opioid crisis, the CDC guideline and the importance of maintaining medication under her written agreement. PHYSICAL EXAMINATION: GENERAL: She is pleasant and outgoing. VITAL SIGNS: Blood pressure of 175/95, heart rate 81. BMI is 32.2. ABDOMEN: Pump is in the right lower quadrant, nontender. Tenderness into her right lower abdominal quadrant still, with no palpable mass. MUSCULOSKELETAL: She moves from a sitting to standing position, ambulates without difficulty. She has tenderness across her low back. IMPRESSION: 1. Chronic low back pain with radiculopathy. 2. Severe osteoarthritis. 3. Nonischemic cardiomyopathy with an implantable cardiac defibrillator. 4. Hypertension. 5. Obesity with body mass index greater than 30. 6. Osteoarthritis and Dupuytren's contractures involving the hands. 7. Management of high-risk medications under terms of written opioid agreement. 8. Management of intrathecal infusion pump with refill and reprogramming. PROCEDURE: Skin was prepped with ChloraPrep and anesthetized. A 22-gauge non-coring needle advanced in the pump and old medication removed and discarded. We expected 1.5 mL and we retrieved roughly 5 mL. This is up slightly higher amount than typical for a 40 mL pump and we will keep an eye on this. She has [address] [address] PAIN MANAGEMENT CONSULTATION Name: MARJORIE WING [id number] Admission: 04/28/17 Attend Phys: Lc Reyes MD Discharge: Date of : 50 Report #: [id number] had no episodes of under-medication that she can account. Reprogramming session was performed. Her next refill date is on 06/21/2017 with an CINDY of 71 months on this current pump. Followup visit in May. <ELECTRONICALLY SIGNED> By: Lc Reyes MD 05/28/17 1640 [id number] Lc Reyes MD /nt
[2017-04-28 12:58] VITALS: BP 175/95
== END ==
LOC: PAIN 07:05
DX: Z45.1 Encounter for adjustment and management of infusion pump (principal); M54.16 Radiculopathy, lumbar region; G89.29 Other chronic pain; I12.9 Hypertensive chronic kidney disease with stage 1 through stage 4 chronic kidney disease, or unspecified chronic kidney disease; N18.9 Chronic kidney disease, unspecified; I42.8 Other cardiomyopathies; M19.90 Unspecified osteoarthritis, unspecified site; Z95.810 Presence of automatic (implantable) cardiac defibrillator; Z79.891 Long term (current) use of opiate analgesic; Z98.890 Other specified postprocedural states; Z79.899 Other long term (current) drug therapy; Z88.6 Allergy status to analgesic agent; Z88.2 Allergy status to sulfonamides; Z88.8 Allergy status to other drugs, medicaments and biological substances

== ENCOUNTER → 2017-08-21 | Outpatient (CLI) | payer OTHER ==
[~2017-08-21] VITALS: Ht 124.5 cm; Wt 72.1 kg
[~2017-08-21] MED LIST changes: -OMEPRAZOLE 20 M20 M1 PO
--- NOTE | ~2017-08-21 | HPC ---
[facility] [address] [place] [address] PAIN MANAGEMENT CONSULTATION Name: MARJORIE WING [facility] [id number] Admission: 08/21/17 Attend Phys: Lc Reyes MD Discharge: Date of : 50 Report #: [id number] THIS REPORT FOR: //name// CC: Lc Fofana MD DATE OF SERVICE: 08/21/2017 DATE OF REGISTRATION: 08/21/2017 Followup visit for management of intrathecal infusion pump with reprogramming and also management of high risk opioid medications for supplement under terms of written opioid agreement. This is a followup visit for the patient, who is here today for refill of her pump. I also provided her with oxycodone 10/325 three times a day. That is a total of 30 mg of oxycodone for an MME of 45. She reports that her back has been "killing her." She has been doing a bit more activity around the house. She also has some right leg pain. She may be a candidate for an epidural injection. If this persists, I would not favor increasing medication in her pump or oral medication. PHYSICAL EXAMINATION: GENERAL: She is a pleasant 67-year-old who looks younger than her stated age. VITAL SIGNS: Her blood pressure is 140/70, heart rate 71, respirations 14, BMI is 32.2. MUSCULOSKELETAL: She moves from sitting to standing position with some difficulty. She has pain with range of motion of the lumbar spine in all planes. She has localized tenderness overlying the lumbosacral segment. She has straight leg raising, pain into the left leg in the L5 distribution consistent with her pain of the radicular nature. She has pain with internal and external rotation of the hips. She has tenderness in knees and shoulders. She has Dupuytren contractions in both hands. CHEST: Normal. Breath sounds are clear with no wheezing. CARDIAC: Rhythm is regular. Tenderness is noted over the implantable cardiac defibrillator in the chest wall. IMPRESSION: 1. Low back pain with radiculopathy. 2. Osteoarthritis. 3. Hypertension. 4. Nonischemic cardiomyopathy. 5. Obesity. 6. Management of high risk medications, 45 MME entered with written agreement. 7. Management of intrathecal infusion pump with refill. [address] [address] PAIN MANAGEMENT CONSULTATION Name: MARJORIE WING Room #: REG Ki Lino#: [id number] Admission: 08/21/17 Attend Phys: Lc Reyes MD Discharge: Date of : 50 Report #: [id number] PROCEDURE: Skin was prepped with ChloraPrep and anesthetized. A 22-gauge non-coring needle advanced in the pump. Old medication removed and discarded. Pump was refilled with bupivacaine, clonidine and fentanyl. Reprogramming session performed. Her next refill is on 10/13/2017. Her maximum daily dose including her PA is fentanyl 139 mcg, clonidine 1392 mcg and bupivacaine 13.9 mg. By: [id number] Lc Reyes MD /linda
[2017-08-21 12:37] VITALS: BP 140/70
== END | disposition home or self-care (01) ==
LOC: PAIN 07:20
DX: Z45.1 Encounter for adjustment and management of infusion pump (principal); M54.16 Radiculopathy, lumbar region; G89.29 Other chronic pain; I10 Essential (primary) hypertension; I42.9 Cardiomyopathy, unspecified; M19.90 Unspecified osteoarthritis, unspecified site; E66.09 Other obesity due to excess calories; Z79.891 Long term (current) use of opiate analgesic; Z68.32 Body mass index [BMI] 32.0-32.9, adult; Z88.2 Allergy status to sulfonamides; Z79.82 Long term (current) use of aspirin; Z88.8 Allergy status to other drugs, medicaments and biological substances; Z79.899 Other long term (current) drug therapy

== ENCOUNTER → 2017-10-13 | Outpatient (CLI) | payer OTHER ==
[~2017-10-13] VITALS: Ht 149.9 cm; Wt 74.5 kg
--- NOTE | ~2017-10-13 | HPC ---
[facility] [address] [place] [address] PAIN MANAGEMENT CONSULTATION Name: MARJORIE WING Room #: REG SHERIF Holland#: [id number] Admission: 10/13/17 Attend Phys: Lc Reyes MD Discharge: Date of : 50 Report #: [id number] THIS REPORT FOR: //name// CC: Physician staff Lc Fofana MD DATE OF SERVICE: 10/13/2017 Followup visit for chronic low back pain with radiculopathy. The patient returns to pain clinic today for refill of her intrathecal infusion pump. In addition under terms of written opioid agreement and the CDC guideline, I provided with breakthrough oxycodone 10/325, three per day. She is allowed 2 prescriptions at each refill. She uses medications carefully and cautiously and has had no significant side effects. She is grateful for the relief it provides when the pump is not providing a good baseline. I also provided with gabapentin 100 mg and she takes that 3 times a day as well without side effect. Today, she reports that her pain has been a little bit worse over the course of the last month or two. Pain scores vary and today she scores her pain at 10, but she is jovial and joking throughout her visit, so 10 seems to be misuse of the pain score. I reviewed the QRS with her and her BMI is 33.1. She is not a fall risk. She is quite stable on her feet. She is on no blood thinners, but she does have hypertension which is under treatment. She is a low risk and her risk assessment tool and her functional assessment tool shows that pain does not interfere with any of her day-to-day activities, typical of her personality type. She does not smoke or use alcohol. PHYSICAL EXAMINATION: She is pleasant and alert female. She moves easily from sitting to standing position. Today, she has some antalgic features to her gait. Range of motion of the spine provides discomfort and there is tenderness located throughout the lumbosacral segment. She has straight leg raising pain in the L5 distribution, consistent with radiculopathy noted at her last visit. IMPRESSION: 1. Low back pain with radiculopathy noted in the left L5-S1 distribution. 2. Osteoarthritis. 3. Hypertension. 4. Nonischemic cardiomyopathy. 5. Obesity. 6. Management of opioid medications for supplement of her intrathecal infusion [address] [address] PAIN MANAGEMENT CONSULTATION Name: MARJORIE WING Room #: REG SHERIF Lino#: [id number] Admission: 10/13/17 Attend Phys: Lc Reyes MD Discharge: Date of : 50 Report #: [id number] pump with an MME of 45. We discussed CDC guidelines and our opioid agreement and her role in safeguarding medications. 7. Management of intrathecal infusion pump with refill reprogramming today. PROCEDURE: Skin was prepped with ChloraPrep. Skin anesthetized and a 22-gauge non-coring needle advanced into the intrathecal pump. Old medication was removed and discarded. Pump was then refilled under protocol with fentanyl, clonidine and bupivacaine mixture. She will be receiving at maximum dose 139 mcg of fentanyl, ____ mcg of clonidine and bupivacaine 13.9. Refill interval is now 53 days. PLAN: To see her back in the pain clinic at that time. She was instructed again to be careful and safeguard all her medications. No significant side effects were noted. By: [id number] Lc Reyes MD /nt
[2017-10-13 13:36] VITALS: BP 122/86
== END | disposition home or self-care (01) ==
LOC: PAIN 06:39
DX: M54.16 Radiculopathy, lumbar region (principal); G89.29 Other chronic pain; I10 Essential (primary) hypertension; M19.90 Unspecified osteoarthritis, unspecified site; I42.9 Cardiomyopathy, unspecified; E66.09 Other obesity due to excess calories; Z79.891 Long term (current) use of opiate analgesic; Z88.2 Allergy status to sulfonamides; Z88.8 Allergy status to other drugs, medicaments and biological substances; Z79.899 Other long term (current) drug therapy; Z68.33 Body mass index [BMI] 33.0-33.9, adult

== ENCOUNTER → 2018-01-19 | Outpatient (CLI) | payer OTHER ==
[~2018-01-19] VITALS: Ht 149.9 cm; Wt 71.2 kg
[~2018-01-19] MED LIST changes: +OMEPRAZOLE 20 M20 M1 PO
--- NOTE | ~2018-01-19 | HPC ---
[facility] [address] [address] PAIN MANAGEMENT CONSULTATION Name: MARJORIE WING Room #: REG SHERIF Lino#: [id number] Admission: 01/19/18 Attend Phys: Tori Ford Discharge: Date of : 50 Report #: [id number] THIS REPORT FOR: //name// CC: Tori Ford Physician staff SERGIO Fofana DATE OF SERVICE: 01/19/2018 REASON FOR CONSULTATION: Followup visit today for her intrathecal pump refill and medical management for her chronic intractable low back pain with radiculopathy. HISTORY OF PRESENT ILLNESS: The patient comes to the office today for refill of her intrathecal pump and for her medications. She states that her lower back and right leg is bothering her. She states that her right leg has been getting significant weaker since her knee was replaced, has not fallen, but states that it does not have any strength in it. She states that she saw an orthopedic doctor for her knee. He did a plain film x-ray in his office and states that she is having problems in her lower back. The patient was aware of this. He wanted to do an injection that day in her back. She refused to have that done states only Dr. Reyes can give her injections in her back. Her pain score today is a 7/10. She has been using her PTM as well as her oral medicines. She also states that her pain medicine from her last refill was from a different franchise specialist, oxycodone 10/325, states that does not work as well and was therefore going through her medicines quicker than prescribed and is out of those medicines today. The patient is here for her refill. ALLERGIES: BEE STINGS, SULFA, MORPHINE, ASPIRIN AND HYDROMORPHONE. CURRENT MEDICATIONS: Oxycodone 10/325 one three times a day, gabapentin 100 mg 4 times a day, omeprazole 20, Lasix 20 mg, nitro as needed, carvedilol 3.125 b.i.d., Zestril 2.5 once a day and simvastatin 20 mg once a day. PQRS: 1. History of osteoarthritis in her back and in her knees. Denies rheumatoid arthritis. 2. Height 4 feet 11 inches, weight 157 with a BMI of 31.7. 3. Vital signs: Blood pressure 122/86, pulse is 66, respirations 20, oxygen sat is 100%. 4. Pain score is 7/10. 5. Denies dizziness, does not need help walking or standing and has not fallen in the last 3 months. 6. The patient is not on a blood thinner. 7. History of hypertension, yes. [address] [address] PAIN MANAGEMENT CONSULTATION Name: SHIVA WINGFranklyn Mitchell Room #: REG SHERIF Lino#: [id number] Admission: 01/19/18 Attend Phys: Tori Ford Discharge: Date of : 50 Report #: [id number] 8. Opioid therapy greater than 6 weeks, yes and she is on opioid signed contract on the chart. 9. Risk assessment tool is low and functional assessment is 36/70. 10. The patient denies recreational drug use or tobacco use and states that she does not drink. [facility] were performed on this patient, but no reports were found. [place] does not do tracking in the [facility] that she lives in. PHYSICAL EXAMINATION: GENERAL: This is a pleasant, alert and orientated lady with no signs of anxiety or depression or overmedication. She does state her pain score 7/10 today. She is able to move from a sitting to standing position, but there is pain in her right leg, also strength decreased in her right leg to about 2, general 2/5 in her right, but 5/5 in her left. She has localized tenderness in her back and her leg. Straight leg raising is mildly positive. REFILL AND REPROGRAMMING: Skin was prepped with ChloraPrep and anesthetized by Dr. Lc Reyes. Pump was filled with 22-gauge non-coring needle and advanced into the intrathecal place. Old medicine was removed and discarded. Pump was refilled with a combination of clonidine 2000 mcg, bupivacaine 20 mg and fentanyl 200 mcg. Reprogramming session was performed. Her next refill is scheduled for before 03/01/2018 with maximum PTM use. Her current pump settings are fentanyl 100 mcg per day, clonidine 1001 mcg per day, bupivacaine 10. The patient was ordered a CT of her lumbar spine without contrast today due to her increasing back pain and right leg pain. Radiology was able to do that today and the patient was sent for that. The patient will follow up with Dr. Reyes for an injection after the results are read. DIAGNOSTIC IMPRESSIONS: 1. Chronic intractable low back pain with radiculopathy management of intrathecal infusion pump with refill and reprogramming. 2. Hypertension. 3. Nonischemic cardiomyopathy. 4. Obesity. We reviewed the fact that opiate medications are being used to provide analgesia adequate to support activities of daily living, not attempting to achieve a specific pain score on the 0-10 Visual Analog Scale. The current opiate medications are providing sufficient analgesia to allow the patient to participate in activities of daily living. The patient is not exhibiting any aberrant behavior suggestive of drug diversion. The patient is not having any adverse reactions to medications. The patient is not suffering from daytime somnolence or mental acuity changes. The patient is managing opiate-induced constipation with appropriate qfae-zfc-tyaezax agents and dietary [facility] [address] [place] [address] PAIN MANAGEMENT CONSULTATION Name: MARJORIE WING Room #: REG [facility]#: [id number] Admission: 01/19/18 Attend Phys: Tori Ford Discharge: Date of : 50 Report #: [id number] considerations. The patient was counseled on concern for caution with operating a motor vehicle while using opiate medications. A physical exam was performed and the patient's functional status was evaluated. All patients with back pain were advised against the bed rest greater than 4 days and were advised to return to normal activities. Pain score assessment was noted and the treatment plan was reviewed with the patient. All current medications, both prescribed and OTC were reviewed and reconciled on the electronic medical record. Tobacco screening was accomplished and smoking cessation was advised when indicated. BMI was noted and diet/exercise modification was recommended for all patients following outside normal parameters. I reviewed with the patient today their responsibilities to safeguard prescription medications, reviewed their responsibility to utilize medications only as prescribed by the physician. They are to seek and receive pain medications only from 1 physician group ( [facility]). They are to use 1 pharmacy and keep the clinic informed if they change pharmacies. Their responsibilities include making followup visits in a timely fashion and to avoid abrupt discontinuation of medication usage. Their responsibilities further include bringing their medications (bottles from the pharmacy with residual pills) to the visit for possible confirmation of pill counts and the patient understands it is their responsibility to submit to random drug screens to ensure both that the medications prescribed are present, and that no other controlled substances are present. All prescriptions provided today were generated electronically. PLAN: 1. The patient was given prescriptions today for oxycodone one p.o. t.i.d., #90 for today and [address] lumbar spine was ordered without contrast to be done today. 3. The patient's pump was refilled as per above. 4. The patient was given an appointment for an injection with Dr. Lc Reyes. The patient was seen in collaboration with Dr. Lc Reyes today. <ELECTRONICALLY SIGNED> By: Tori Ford 01/23/18 [id number] Tori Ford /nt
[2018-01-19 08:31] VITALS: BP 122/86
== END | disposition home or self-care (01) ==
LOC: PAIN 12-30 15:12 → CAT 07:03 → PAIN 12:32
DX: Z45.1 Encounter for adjustment and management of infusion pump (principal); M54.16 Radiculopathy, lumbar region; G89.29 Other chronic pain; I10 Essential (primary) hypertension; I42.9 Cardiomyopathy, unspecified; E66.9 Obesity, unspecified; Z88.2 Allergy status to sulfonamides; Z88.8 Allergy status to other drugs, medicaments and biological substances; M17.10 Unilateral primary osteoarthritis, unspecified knee; Z68.31 Body mass index [BMI] 31.0-31.9, adult; Z79.899 Other long term (current) drug therapy; Z79.891 Long term (current) use of opiate analgesic

== ENCOUNTER → 2018-03-09 | Outpatient (CLI) | payer OTHER ==
[~2018-03-09] VITALS: Ht 149.9 cm; Wt 71.3 kg
--- NOTE | ~2018-03-09 | HPC ---
[facility] [address] [place] [address] PAIN MANAGEMENT CONSULTATION Name: MARJORIE WING Room #: REG SHERIF HuntLuis#: [id number] Admission: 03/09/18 Attend Phys: Lc Reyes MD Discharge: Date of : 50 Report #: [id number] THIS REPORT FOR: //name// CC: Physician staff Lc Fofana MD DATE OF SERVICE: 03/09/2018 Followup visit for management of intrathecal infusion pump. The patient returns today for refill of intrathecal infusion pump. I also provide her with oxycodone 10/325 three tablets daily, Neurontin 100 mg t.i.d. for neuropathic pain. This has been effective in helping with her chronic intractable back pain and osteoarthritis. She has no significant side effects, manages her medications carefully. We reviewed the fact that opiate medications are being used to provide analgesia adequate to support activities of daily living, not attempting to achieve a specific pain score on the 0-10 Visual Analog Scale. The current opiate medications are providing sufficient analgesia to allow the patient to participate in activities of daily living. The patient is not exhibiting any aberrant behavior suggestive of drug diversion. The patient is not having any adverse reactions to medications. The patient is not suffering from daytime somnolence or mental acuity changes. The patient is managing opiate-induced constipation with appropriate ffss-xmc-xpyesth agents and dietary considerations. The patient was counseled on concern for caution with operating a motor vehicle while using opiate medications. A physical exam was performed and the patient's functional status was evaluated. All patients with back pain were advised against the bed rest greater than 4 days and were advised to return to normal activities. Pain score assessment was noted and the treatment plan was reviewed with the patient. All current medications, both prescribed and OTC were reviewed and reconciled on the electronic medical record. Tobacco screening was accomplished and smoking cessation was advised when indicated. BMI was noted and diet/exercise modification was recommended for all patients following outside normal parameters. I reviewed with the patient today their responsibilities to safeguard prescription medications, reviewed their responsibility to utilize medications only as prescribed by the physician. They are to seek and receive pain medications only from 1 physician group ( [facility]). They are to use 1 pharmacy and keep the clinic informed if they change pharmacies. Their responsibilities include making followup visits in a timely fashion and to avoid [address] [address] PAIN MANAGEMENT CONSULTATION Name: MARJORIE WING Room #: REG Ki Lino#: [id number] Admission: 03/09/18 Attend Phys: Lc Reyes MD Discharge: Date of : 50 Report #: [id number] abrupt discontinuation of medication usage. Their responsibilities further include bringing their medications (bottles from the pharmacy with residual pills) to the visit for possible confirmation of pill counts and the patient understands it is their responsibility to submit to random drug screens to ensure both that the medications prescribed are present, and that no other controlled substances are present. All prescriptions provided today were generated electronically. PQRS REVIEW: 1. Demonstrates osteoarthritis, back and knees. 2. BMI of 31.7. 3. Vital signs: Blood pressure is 119/53, heart rate 60. 4. Pain intensity 7. 5. She is not a fall risk. 6. No blood thinners. 7. History of hypertension, under treatment. 8. Opioid agreement signed in 2015. 9. Low risk on the assessment tool for opioid use. 10. She denies use of tobacco and alcohol. 11. K-TRACS showed no unexpected fills of medication. PHYSICAL EXAMINATION: Pleasant, alert and oriented with no signs of overmedication. She moves easily from sitting to standing position. She has no antalgic features. She has pain with forward flexion and extension of the lumbar spine and there is pain in the right leg with straight leg raising. IMPRESSION: 1. Chronic low back pain with radiculopathy. 2. Hypertension. 3. Management of intrathecal infusion pump with reprogramming. 4. Nonischemic cardiomyopathy. 5. Hypertension. 6. Management of high risk medication. PLAN: 1. Medications renewed under terms of our opioid agreement. 2. Refill and reprogramming of intrathecal infusion pump. PROCEDURE: Skin was prepped with ChloraPrep and anesthetized. A 22-gauge non-coring needle advanced in the pump. Old medication removed and discarded. Pump was refilled with medication, bupivacaine, clonidine and fentanyl and reprogramming session was performed. Followup visit is scheduled in 2-3 months. By: [id number] [id number] Lc Reyes MD /nt
[2018-03-09 13:11] VITALS: BP 119/53
== END | disposition home or self-care (01) ==
LOC: PAIN 00:41
DX: Z45.1 Encounter for adjustment and management of infusion pump (principal); M54.16 Radiculopathy, lumbar region; G89.29 Other chronic pain; I42.8 Other cardiomyopathies; M17.0 Bilateral primary osteoarthritis of knee; I12.9 Hypertensive chronic kidney disease with stage 1 through stage 4 chronic kidney disease, or unspecified chronic kidney disease; N18.9 Chronic kidney disease, unspecified; G47.30 Sleep apnea, unspecified; Z79.891 Long term (current) use of opiate analgesic; Z88.2 Allergy status to sulfonamides; Z88.8 Allergy status to other drugs, medicaments and biological substances; Z79.899 Other long term (current) drug therapy

== ENCOUNTER → 2018-04-23 | Outpatient (CLI) | payer OTHER ==
[~2018-04-23] VITALS: Ht 149.9 cm; Wt 72.0 kg
--- NOTE | ~2018-04-23 | HPC ---
[facility] [address] [place] [address] PAIN MANAGEMENT CONSULTATION Name: MARJORIE WING Room #: REG SHERIF HanksLuisLatoyaLuis#: [id number] Admission: 04/23/18 Attend Phys: Lc Reyes MD Discharge: Date of : 50 Report #: [id number] THIS REPORT FOR: //name// CC: Physician staff Lc Fofana MD DATE OF SERVICE: 04/23/2018 Followup visit for chronic pain. The patient returns to Pain Clinic today for renewal of medication and intrathecal pump. She has chronic pain syndrome and has been managed with an intrathecal pump for many years, coming to me from [place] where her pump was managed by a physician there. Her pain is mostly across her low back. She has some radiating pain into her legs as well. On the whole, the pump has done a good job. Over the many years, she has been allowed also to take small amount of oral medication. We have reduced this some in the past, but currently she still utilizes 3 oxycodone 10 mg tablets 3 times daily. Urine drug screen will be performed today. We will try to reduce this medication in milligram dose to 7.5 and then to 5 and try to use her pump more effectively. Her pump is a combination of bupivacaine, clonidine and fentanyl. Initially, there was no opioid whatsoever. We have gradually been increasing the dose in that pump. She lives with her ex- in a trailer. They have a doggie. She is active. Pain medication helps provide her with the relief necessary to provide for her day-to-day activities. She was seen just 6 weeks ago for medication review. PQRS review is unchanged from that visit. She has no history of significant osteoarthritis. Most of her pain is in her back. Her BMI is 32. She is not a fall risk. She has not fallen. She is not on a blood thinner. She is treated for hypertension. She is on an opioid agreement, has completed a risk tool and is considered at low risk. She does not use tobacco or alcohol. PHYSICAL EXAMINATION: 4 feet 11 inches, 158 pounds, BMI of 32.1. Blood pressure 131/77, heart rate 87, respirations 16. Pain intensity reported at 9. She easily moves from sitting to standing position. She ambulates without difficulty. She has some pain with forward flexion and extension, rotation of her spine. She has local tenderness across the lumbosacral segment. The pump is in the abdomen on the left and is in good position. IMPRESSION: [facility] [address] [place] [address] PAIN MANAGEMENT CONSULTATION Name: MARJROIE WING Room #: REG [facility]#: [id number] Admission: 04/23/18 Attend Phys: Lc Reyes MD Discharge: Date of : 50 Report #: [id number] 1. Chronic low back pain with spondylosis. Post-laminectomy syndrome. 2. Management of intrathecal infusion pump with refill program today. 3. Management of oral medications under terms of written opioid agreement. Follow through the CDC guidelines. A buccal drug screen will be performed today. PROCEDURE: Skin was prepped with ChloraPrep. Skin was anesthetized. A 22-gauge non-coring needle advanced in the pump. Old medication removed and discarded. Pump was refilled with bupivacaine, clonidine and fentanyl and reprogramming session was performed. Because of her complaints of increasing pain, I have increased her pump by 20% to 119 mcg of fentanyl, 1200 mg of clonidine and bupivacaine also 12 mg. She has a PTM device, which will allow for maximum doses at that level. A followup visit is scheduled in the Pain Clinic in 2-1/2 months. We will taper oral medications and review her drug screen at that time. By: 1713 1831 Lc Reyes MD /nt
[2018-04-23 14:26] VITALS: BP 131/77
--- NOTE | 2018-04-23 14:59 | NUR ---
Pain Clinic Assessment: 1. History of Osteoarthritis: Not Applicable History of Rheumatoid Arthritis: Not Applicable 2. Height: 4 ft. 11 in. 149.9 cm. Weight: 158.8 lb. oz. 72.031 kg. Patient's BMI: 32.1 3. Vital Signs: BP: 131/77 Pulse: 87 Resp: 16 Temp: 02 Sat: 100 ECG Mon: 4. Pain Intensity: 9 5. Fall Risk: Dizziness: N Needs help standing or walking: N Fallen in the last 3 months: N Fall risk comments: 6. Patient on Blood Thinner: None 7. History of Hypertension: Y 8. Opioid Therapy greater than 6 weeks: Y Opiate Contract Signed: 10/18/15 9. Risk Assessment Tool Provided: 1 LOW RISK 10. Functional Assessment Tool: 36/70 PER PT 11. Recreational Drug Use: Never Drug Type: Tobacco Use: Never Smoker Tobacco Type: Amount or Packs/day: How Many Years: Alcohol Use: No Frequency: Quant:
== END | disposition home or self-care (01) ==
LOC: PAIN 07:18
DX: Z45.1 Encounter for adjustment and management of infusion pump (principal); G89.4 Chronic pain syndrome; M47.896 Other spondylosis, lumbar region; M96.1 Postlaminectomy syndrome, not elsewhere classified; I12.9 Hypertensive chronic kidney disease with stage 1 through stage 4 chronic kidney disease, or unspecified chronic kidney disease; N18.9 Chronic kidney disease, unspecified; Z88.2 Allergy status to sulfonamides; Z79.891 Long term (current) use of opiate analgesic; Z88.8 Allergy status to other drugs, medicaments and biological substances; Z79.899 Other long term (current) drug therapy; Z98.890 Other specified postprocedural states

== ENCOUNTER → 2018-06-04 | Outpatient (CLI) | payer OTHER ==
[~2018-06-04] VITALS: Ht 149.9 cm; Wt 74.0 kg
--- NOTE | ~2018-06-04 | HPC ---
[facility] [address] [place] [address] PAIN MANAGEMENT CONSULTATION Name: MARJORIE WING Room #: REG SHERIF Holland#: [id number] Admission: 06/04/18 ������������������ Attend Phys: Lc Reyes MD Discharge: ������������������ Date of : 50 Report #: [id number] THIS REPORT FOR: //name// CC: Dr. Antonio Suarez Physician staff Lc SUAREZ DATE OF SERVICE: 06/04/2018 Followup visit for chronic intractable low back pain with radiculopathy. The patient returns to pain clinic today for renewal and refill of her intrathecal infusion pump. She is doing well. She remains active in her home. Medication provides substantial reduction in her day-to-day pain and she is grateful for the benefits that she receives. She was given a prescription for oxycodone 10/325 #90 tablets with refill prescriptions for May and May. Because she is doing well and is using less of her breakthrough medication, she does not need additional medicine for her right now. PQRS REVIEW: 1. She does have osteoarthritis involving the shoulders, right worse than left. 2. Pain intensity reported as 9/10. Her functional level is much higher, however, and her functional assessment tool is 36/70. 3. She is on no blood thinners. 4. She has a history of hypertension. 5. She has not fallen and is not considered a fall risk. 6. She has an opioid agreement signed on 10/18/2015. The safeguarding of medications is reviewed at every office visit. There have been no untoward entries on the [facility]'s prescription drug monitoring. 7. She is no longer smoking nor does she use alcohol. PHYSICAL EXAMINATION: GENERAL: She is a delightful outgoing 67-year-old. VITAL SIGNS: She is 4 feet 11 inches, 163 pounds. Blood pressure is 136/86, heart rate 71. BMI is 32.9. She was counseled about weight control and exercise. ABDOMEN: Nontender. The pump is in the right lower quadrant. MUSCULOSKELETAL: She has some tenderness across her low back and in her neck today, but this is mild, well controlled currently by current medication regimen through the pump. IMPRESSION: 1. Chronic low back pain with radiculopathy. [facility] [address] [place] [address] PAIN MANAGEMENT CONSULTATION Name: MARJORIE WING Room #: REG SHERIF Lino#: [id number] Admission: 06/04/18 ������������������ Attend Phys: Lc Reyes MD Discharge: ������������������ Date of : 50 Report #: [id number] 2. Chronic cervicalgia. 3. Post laminectomy syndrome with failed back. 4. Management of intrathecal infusion pump with refill and reprogramming session today. PROCEDURE: Skin was prepped with ChloraPrep and anesthetized. A 22-gauge non-coring needle was advanced in the intrathecal pump. Old medication removed and discarded. Pump was refilled with bupivacaine, clonidine and fentanyl. Reprogramming session was performed. A copy of the information was provided for the patient. She will be on fentanyl 119 mcg a day; clonidine, high dose 198 mcg per day and bupivacaine 11.9 mg per day. She came to us on high clonidine from [place] several years ago and will continue that dosing. Followup visit is planned in 3 months. She did not need oral medications today. ��������������������������������������������� ���������������������������������������� By: ��������������������������������������������� [id number] Lc Reyes MD /nt
[2018-06-04 12:54] VITALS: BP 136/86
--- NOTE | 2018-06-04 13:23 | NUR ---
Pain Clinic Assessment: 1. History of Osteoarthritis: Not Applicable History of Rheumatoid Arthritis: Not Applicable 2. Height: 4 ft. 11 in. 149.9 cm. Weight: 163.2 lb. oz. 74.027 kg. Patient's BMI: 32.9 3. Vital Signs: BP: 136/86 Pulse: 71 Resp: 16 Temp: 02 Sat: 99 ECG Mon: 4. Pain Intensity: 9 5. Fall Risk: Dizziness: N Needs help standing or walking: N Fallen in the last 3 months: N Fall risk comments: 6. Patient on Blood Thinner: None 7. History of Hypertension: Y 8. Opioid Therapy greater than 6 weeks: Y Opiate Contract Signed: 10/18/15 9. Risk Assessment Tool Provided: 1 LOW RISK 10. Functional Assessment Tool: 36/70 PER PT 11. Recreational Drug Use: Never Drug Type: Tobacco Use: Never Smoker Tobacco Type: Amount or Packs/day: How Many Years: Alcohol Use: No Frequency: Quant:
== END | disposition home or self-care (01) ==
LOC: PAIN 07:01
DX: Z45.1 Encounter for adjustment and management of infusion pump (principal); G89.29 Other chronic pain; M54.16 Radiculopathy, lumbar region; M54.2 Cervicalgia; M96.1 Postlaminectomy syndrome, not elsewhere classified; I10 Essential (primary) hypertension; M19.011 Primary osteoarthritis, right shoulder; M19.012 Primary osteoarthritis, left shoulder; Z88.2 Allergy status to sulfonamides; Z79.891 Long term (current) use of opiate analgesic; Z88.8 Allergy status to other drugs, medicaments and biological substances; Z79.899 Other long term (current) drug therapy

== ENCOUNTER → 2018-07-16 | Outpatient (CLI) | payer OTHER ==
[~2018-07-16] VITALS: Ht 149.9 cm; Wt 72.1 kg
--- NOTE | ~2018-07-16 | HPC ---
[facility] [address] [place] [address] PAIN MANAGEMENT CONSULTATION Name: MARJORIE WING Room #: REG SHERIF HuntLuis#: [id number] Admission: 07/16/18 ������������������ Attend Phys: Lc Reyes MD Discharge: ������������������ Date of : 50 Report #: [id number] THIS REPORT FOR: //name// CC: Physician staff Lc SUAREZ DATE OF SERVICE: 07/16/2018 Followup visit for chronic low back pain with radiculopathy and management of intrathecal infusion pump. The patient returns today for refill and reprogramming of intrathecal infusion pump. She has also been receiving some additional breakthrough medication, oxycodone 10/325, which she takes on an infrequent basis. She is allowed 1 tablet up to 3 times a day, but typically takes no more than about 1-2 tablets, and when her pain is under good control, she does not take it at all. She has completed an opioid agreement and has completed an opioid risk tool, is considered at low risk for addiction per that screening tool. On PQRS REVIEW: 1. She has osteoarthritis and complains of pain in her shoulders. 2. Pain intensity today is an 8/10. 3. She is on no blood thinners. 4. No history of hypertension. 5. No recent falls and is not considered a fall risk. 6. She has an opioid agreement on the chart. 7. She denies use of tobacco and alcohol. 8. All medications reviewed and reconciled. PHYSICAL EXAMINATION: Pleasant female. Alert, oriented. No signs of depression or anxiety. She is always upbeat and pleasant in the clinic. Her blood pressure 148/88, heart rate 78, respirations 16. She has some pain across her low back and tenderness in the lumbosacral segment. There is no straight leg raising discomfort. IMPRESSION: 1. Chronic low back pain with radiculopathy. 2. Management of intrathecal infusion pump. 3. Management of high risk medications with an opioid agreement. PLAN: Refill and reprogramming. PROCEDURE: Skin was prepped with ChloraPrep and anesthetized with 1% lidocaine. A 22-gauge non-coring needle advanced in the pump. Old medication removed and [facility] [address] [place] [address] PAIN MANAGEMENT CONSULTATION Name: MARJORIE WING Stephen Room #: REG [facility] [place]#: [id number] Admission: 07/16/18 ������������������ Attend Phys: Lc Reyes MD Discharge: ������������������ Date of : 50 Report #: [id number] discarded. Pump refilled and reprogrammed to provide fentanyl 119.8 mcg, clonidine 1198 mcg, bupivacaine 11.9 mg per day. She has a PTM device, which will allow her to increase these doses by 73%. She uses it frequently, 197 activations since last visit. Her intrathecal pump has about 58 months remaining on the battery life. Her next refill is scheduled after today is for 08/21/2018. New medications were provided for her under terms of written opioid agreement. She tells me she carefully safeguards her medication and is grateful for the additional pain relief that they provide. ��������������������������������������������� ���������������������������������������� By: ��������������������������������������������� 1715 0922 Lc Reyes MD /nt
[2018-07-16 12:44] VITALS: BP 148/88
--- NOTE | 2018-07-16 12:48 | NUR ---
Pain Clinic Assessment: 1. History of Osteoarthritis: Not Applicable History of Rheumatoid Arthritis: Not Applicable 2. Height: 4 ft. 11 in. 149.9 cm. Weight: 159.0 lb. oz. 72.122 kg. Patient's BMI: 32.1 3. Vital Signs: BP: 148/88 Pulse: 78 Resp: 16 Temp: 02 Sat: 98 ECG Mon: 4. Pain Intensity: 8 5. Fall Risk: Dizziness: N Needs help standing or walking: N Fallen in the last 3 months: N Fall risk comments: 6. Patient on Blood Thinner: None 7. History of Hypertension: Y 8. Opioid Therapy greater than 6 weeks: Y Opiate Contract Signed: 10/18/15 9. Risk Assessment Tool Provided: 1 LOW RISK 10. Functional Assessment Tool: 36/70 PER PT 11. Recreational Drug Use: Never Drug Type: Tobacco Use: Never Smoker Tobacco Type: Amount or Packs/day: How Many Years: Alcohol Use: No Frequency: Quant:
== END | disposition home or self-care (01) ==
LOC: PAIN 06:51
DX: Z45.1 Encounter for adjustment and management of infusion pump (principal); M54.16 Radiculopathy, lumbar region; G89.29 Other chronic pain; I12.9 Hypertensive chronic kidney disease with stage 1 through stage 4 chronic kidney disease, or unspecified chronic kidney disease; N18.9 Chronic kidney disease, unspecified; M19.011 Primary osteoarthritis, right shoulder; M19.012 Primary osteoarthritis, left shoulder; Z79.891 Long term (current) use of opiate analgesic; Z88.2 Allergy status to sulfonamides; Z88.6 Allergy status to analgesic agent; Z88.8 Allergy status to other drugs, medicaments and biological substances; Z98.890 Other specified postprocedural states; Z79.899 Other long term (current) drug therapy

== ENCOUNTER → 2018-08-20 | Outpatient (CLI) | payer OTHER ==
--- NOTE | ~2018-08-20 | HPC ---
[facility] [place] [address] [place] [address] PAIN MANAGEMENT CONSULTATION Name: MARJORIE WING Room #: REG SHERIF HanksLuisLatoya.#: [id number] Admission: 08/20/18 ������������������ Attend Phys: Lc Reyes MD Discharge: ������������������ Date of : 50 Report #: [id number] THIS REPORT FOR: //name// CC: Physician staff Lc Rangel Jr, MD DATE OF SERVICE: 08/20/2018 Followup visit for chronic intractable low back pain with radiculopathy and management of intrathecal infusion pump. [id number] pain, status post cervical disk replacement with Dr. Jose Rangel. The patient returns to pain clinic today for refill of her intrathecal infusion pump and renewal of some oral pain medication to help her get through her postop pain. She looks as though she is in a fair amount of discomfort. She has an anterior scar from her surgery. Her affect is painful and she moves in a very guarded fashion. She is not moving her neck much at all. She is not wearing a brace. Dr. Rangel performed the surgery about 2 weeks ago. She had a fair amount of postoperative pain. She also developed difficulty with congestive heart failure symptoms and was transferred from the [facility] in [facility], where she spent several days under treatment of the physicians there to manage what sounds like fluid overload. Today, she complains of pain at a level of 8/10. Most of her pain is now postoperative surgical pain, although she continues to complain of some additional pains and aches throughout her body including her low back and her legs. All medications were reviewed and reconciled. She is on oxycodone 10/325 three times daily, gabapentin 100 mg q.8 hours, omeprazole, Lasix, nitroglycerin, carvedilol, lisinopril, simvastatin. ALLERGIES: SULFA and MORPHINE drugs. She tolerates fentanyl. PHYSICAL EXAMINATION: GENERAL: Pleasant female, in obvious pain. Pain score is 10/10. She is quite hypotensive today. She is afebrile. VITAL SIGNS: Blood pressure is 71/52, heart rate 51, respirations 16. This did come up slightly during her time of the visit in the office. She has apparently been running a low blood pressure and this has been reported as similar and normal for her over the last week or two. This is much lower than normal, [address] [address] PAIN MANAGEMENT CONSULTATION Name: MARJORIE WING Room #: REG SHERIF [place]#: [id number] Admission: 08/20/18 ������������������ Attend Phys: Lc Reyes MD Discharge: ������������������ Date of : 50 Report #: [id number] however. We cautioned her about orthostatic changes, lightheadedness and dizziness. CHEST: Clear, without wheezing. CARDIAC: Rhythm is regular. There is no palpable edema. NECK: The scar in her neck is healing with no evidence of infection or inflammation. IMPRESSION: 1. Chronic intractable low back pain with radiculopathy. 2. Acute postoperative pain, status post cervical disk replacement performed by Dr. Jose Rangel. 3. Management of intrathecal infusion pump, chronic. 4. Management of high risk medications for acute and chronic pain. PLAN: Refill and reprogramming. PROCEDURE: The skin was prepped with ChloraPrep and 22-gauge non-coring needle advanced in the pump. Old medication removed and discarded. The pump was then refilled with fentanyl, clonidine and bupivacaine. Reprogramming session was performed. I did not increase her medication due to her clonidine and bupivacaine, which have been high dose for many years. She is on one of the higher doses of clonidine I have seen over many years, but she has tolerated it well. She came to us on that dose from [place]. Her daily dose will be fentanyl 120 mcg, clonidine 1200 mcg and bupivacaine 12 mg per day. I renewed her oxycodone under terms of our written agreement, , #90 tablets and gabapentin 100 mg q.8 hours. I released a prescription provided for 4 weeks because of the distance traveled. I will see her back in the clinic as needed. She has my phone number to call me if there are any other ongoing problems with her pain medication and management. ��������������������������������������������� ���������������������������������������� By: ��������������������������������������������� 1831 0902 Lc Reyes MD /nt
[2018-08-20 15:35] VITALS: BP 79/52
--- NOTE | 2018-08-20 15:47 | NUR ---
Pain Clinic Assessment: 1. History of Osteoarthritis: Not Applicable History of Rheumatoid Arthritis: Not Applicable 2. Height: 4 ft. 11 in. 149.9 cm. Weight: lb. oz. kg. Patient's BMI: 3. Vital Signs: BP: 79/52 Pulse: 51 Resp: 16 Temp: 02 Sat: 96 ECG Mon: 4. Pain Intensity: 10 5. Fall Risk: Dizziness: Y Needs help standing or walking: Y Fallen in the last 3 months: N Fall risk comments: 6. Patient on Blood Thinner: None 7. History of Hypertension: Y 8. Opioid Therapy greater than 6 weeks: Y Opiate Contract Signed: 10/18/15 9. Risk Assessment Tool Provided: 1 LOW RISK 10. Functional Assessment Tool: 36/70 PER PT 11. Recreational Drug Use: Never Drug Type: Tobacco Use: Never Smoker Tobacco Type: Amount or Packs/day: How Many Years: Alcohol Use: No Frequency: Quant:
== END | disposition home or self-care (01) ==
LOC: PAIN 07:03
DX: Z45.1 Encounter for adjustment and management of infusion pump (principal); M54.16 Radiculopathy, lumbar region; G89.29 Other chronic pain; G89.18 Other acute postprocedural pain; I12.9 Hypertensive chronic kidney disease with stage 1 through stage 4 chronic kidney disease, or unspecified chronic kidney disease; N17.9 Acute kidney failure, unspecified; N18.9 Chronic kidney disease, unspecified; Z79.899 Other long term (current) drug therapy; Z88.8 Allergy status to other drugs, medicaments and biological substances; Z88.2 Allergy status to sulfonamides; Z98.890 Other specified postprocedural states; Z79.891 Long term (current) use of opiate analgesic

== ENCOUNTER → 2018-09-24 | Outpatient (CLI) | payer OTHER ==
[~2018-09-24] VITALS: Ht 149.9 cm; Wt 66.7 kg
[~2018-09-24] MED LIST changes: +HYDROCODON-ACE1 EAC5 PO; +NORCO 10-325 T1 EACH PO
[2018-09-24 12:47] VITALS: BP 96/66
--- NOTE | 2018-09-24 12:55 | NUR ---
Pain Clinic Assessment: 1. History of Osteoarthritis: Not Applicable History of Rheumatoid Arthritis: Not Applicable 2. Height: 4 ft. 11 in. 149.9 cm. Weight: 147.0 lb. oz. 66.679 kg. Patient's BMI: 29.7 3. Vital Signs: BP: 96/66 Pulse: 59 Resp: 16 Temp: 02 Sat: 100 ECG Mon: 4. Pain Intensity: 9 5. Fall Risk: Dizziness: N Needs help standing or walking: N Fallen in the last 3 months: N Fall risk comments: 6. Patient on Blood Thinner: None 7. History of Hypertension: Y 8. Opioid Therapy greater than 6 weeks: Y Opiate Contract Signed: 10/18/15 9. Risk Assessment Tool Provided: 1 LOW RISK 10. Functional Assessment Tool: 36/70 PER PT 11. Recreational Drug Use: Never Drug Type: Tobacco Use: Never Smoker Tobacco Type: Amount or Packs/day: How Many Years: Alcohol Use: No Frequency: Quant:
--- NOTE | 2018-09-29 17:25 | HPC ---
[facility] [address] [place] [place] [address] PAIN MANAGEMENT CONSULTATION Name: MARJORIE WING Room #: REG SHERIF Hunt.#: [id number] Admission: 09/24/18 ������������������ Attend Phys: Lc Reyes MD Discharge: ������������������ Date of : 50 Report #: [id number] THIS REPORT FOR: //name// CC: Physician staff Lc Fofana MD DATE OF SERVICE: 09/24/2018 Followup visit for management of intrathecal infusion pump with refill. The patient is here today in the pain clinic for refill of her intrathecal infusion pump. She is recovering slowly from her surgery with Dr. Jose Rangel who apparently did a disk replacement in her cervical spine. She still feels lousy and having a slow recovery. She feels weak and puny. She has remained hypotensive. Pressures were low in our clinic today. Her medications are stable and unchanged. She remains on gabapentin 100 mg four times daily, oxycodone 10/325 taken infrequently for breakthrough pain, omeprazole, Lasix, nitroglycerin, carvedilol, lisinopril, simvastatin. ALLERGIES: SULFA, MORPHINE AND HYDROMORPHONE. PHYSICAL EXAMINATION: GENERAL: She appears tired and worn out. She is otherwise pleasant. Her sense of humor well intact. She moves independently from sitting to standing position and walks with a slow steady gait, cautious in her movements. VITAL SIGNS: Her blood pressure is 96/66, heart rate is 59, respirations 16. She is 4 feet 11 inches, 149 pounds. Her BMI is 29.7. NECK: The small scar in her neck is healing. There is tenderness there. She has limited range of motion of the cervical spine. CHEST: Clear. CARDIAC: Rhythm is regular. ABDOMEN: Soft. Pump is in the right lower quadrant. EXTREMITIES: Lower extremities did not reveal edema. Pulses are palpable. IMPRESSION: 1. Chronic intractable pain, now with multiple pain generators including chronic low back pain with radiculopathy and cervicalgia status post cervical disk replacement by Dr. Jose Rangel. 2. Management of intrathecal infusion pump with refill and reprogramming. 3. Management of breakthrough Percocet for intractable pain. RECOMMENDATION: We had a discussion today about her medicine. Previously, she [address] [address] PAIN MANAGEMENT CONSULTATION Name: MARJORIE WING Room #: REG [facility].#: [id number] Admission: 09/24/18 ������������������ Attend Phys: Lc Reyes MD Discharge: ������������������ Date of : 50 Report #: [id number] was using her pump primarily for her pain relief. She has now gradually increased her Percocet up to 3-4 a day. She complains that the Percocet is no longer effective as it comes from the generic company. I recommended that we transition her to hydrocodone as an opioid rotation. From three Percocet allowed a day to hydrocodone 10/325 four times a day or MME will be fairly equal. Talked to her about side effects of the medication and carefully safeguarding the medication, so that no one can get their hands on it. She understands the importance of following her opioid agreement. I have checked the prescription drug monitoring program for any unexpected entries. There are none of concern. Pump refill and reprogramming session. Skin was prepped with ChloraPrep. A 22-gauge non-coring needle advanced in the pump. Old medication removed and discarded. Pump was refilled with 39.5 mL of combination of fentanyl, clonidine and bupivacaine. A reprogramming session was performed, fentanyl 190 mcg, clonidine 1198 mcg, bupivacaine 11.9 mg per day. PTM will allow for an increase of about 73% on these numbers. She tolerates this well. These are numbers that she has been receiving since she came to us from the clinic in [place] many years ago. Her dose of clonidine has always been in the upper reaches of our experience. She was discharged with a new prescription and a followup visit is scheduled for 4-6 weeks. ��������������������������������������������� <ELECTRONICALLY SIGNED> ���������������������������������������� By: Lc Reyes MD ��������������������������������������������� 09/29/18 1725 1413 1918 Lc Reyes MD /nt
== END | disposition home or self-care (01) ==
LOC: PAIN 06:58
DX: Z45.1 Encounter for adjustment and management of infusion pump (principal); M54.16 Radiculopathy, lumbar region; G89.29 Other chronic pain; M54.2 Cervicalgia; Z98.890 Other specified postprocedural states; Z79.891 Long term (current) use of opiate analgesic; Z88.2 Allergy status to sulfonamides; Z88.8 Allergy status to other drugs, medicaments and biological substances; Z79.899 Other long term (current) drug therapy

== ENCOUNTER → 2018-11-06 | Outpatient (CLI) | payer OTHER ==
[~2018-11-06] VITALS: Ht 149.9 cm; Wt 66.8 kg
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
[2018-11-06 14:05] VITALS: BP 160/88
--- NOTE | 2018-11-06 14:38 | NUR ---
Pain Clinic Assessment: 1. History of Osteoarthritis: Not Applicable History of Rheumatoid Arthritis: Not Applicable 2. Height: 4 ft. 11 in. 149.9 cm. Weight: 147.2 lb. oz. 66.769 kg. Patient's BMI: 29.7 3. Vital Signs: BP: 160/88 Pulse: 79 Resp: 20 Temp: 02 Sat: 100 ECG Mon: 4. Pain Intensity: 9 5. Fall Risk: Dizziness: N Needs help standing or walking: N Fallen in the last 3 months: N Fall risk comments: 6. Patient on Blood Thinner: None 7. History of Hypertension: Y 8. Opioid Therapy greater than 6 weeks: Y Opiate Contract Signed: 10/18/15 9. Risk Assessment Tool Provided: 1 LOW RISK 10. Functional Assessment Tool: 36/70 PER PT 11. Recreational Drug Use: Never Drug Type: Tobacco Use: Never Smoker Tobacco Type: Amount or Packs/day: How Many Years: Alcohol Use: No Frequency: Quant:
== END | disposition home or self-care (01) ==
LOC: PAIN 13:33
DX: Z45.1 Encounter for adjustment and management of infusion pump (principal); I10 Essential (primary) hypertension; Z95.810 Presence of automatic (implantable) cardiac defibrillator; Z95.5 Presence of coronary angioplasty implant and graft; Z88.2 Allergy status to sulfonamides; Z88.8 Allergy status to other drugs, medicaments and biological substances; Z79.899 Other long term (current) drug therapy; M19.90 Unspecified osteoarthritis, unspecified site

== ENCOUNTER → 2018-12-14 | Outpatient (CLI) | payer OTHER ==
[~2018-12-14] VITALS: Ht 149.9 cm; Wt 68.1 kg
[2018-12-14 13:17] VITALS: BP 149/86
--- NOTE | 2018-12-14 13:25 | NUR ---
Pain Clinic Assessment: 1. History of Osteoarthritis: Not Applicable History of Rheumatoid Arthritis: Not Applicable 2. Height: 4 ft. 11 in. 149.9 cm. Weight: 150.2 lb. oz. 68.130 kg. Patient's BMI: 30.3 3. Vital Signs: BP: 149/86 Pulse: 55 Resp: 18 Temp: 02 Sat: 100 ECG Mon: 4. Pain Intensity: 9 5. Fall Risk: Dizziness: N Needs help standing or walking: N Fallen in the last 3 months: N Fall risk comments: 6. Patient on Blood Thinner: None 7. History of Hypertension: Y 8. Opioid Therapy greater than 6 weeks: Y Opiate Contract Signed: 10/18/15 9. Risk Assessment Tool Provided: 1 LOW RISK 10. Functional Assessment Tool: 36/70 PER PT 11. Recreational Drug Use: Never Drug Type: Tobacco Use: Never Smoker Tobacco Type: Amount or Packs/day: How Many Years: Alcohol Use: No Frequency: Quant:
--- NOTE | 2018-12-17 08:38 | HPC ---
[facility] [address] [place] [address] PAIN MANAGEMENT CONSULTATION Name: MARJORIE WING Room #: REG SHERIF [place]#: [id number] Admission: 12/14/18 ������������������ Attend Phys: Lc Reyes MD Discharge: ������������������ Date of : 50 Report #: [id number] THIS REPORT FOR: //name// CC: Physician staff Lc SUAREZ DATE OF SERVICE: 12/14/2018 Followup visit for management of high risk oral medications and intrathecal infusion pump. The patient receives pump medication refills through our office and I also provide her with oxycodone 10/325 mg tablets, which she finds helpful. Both medications are used carefully and cautiously. She has recently had an artificial disk placement in the neck. Recovery was awful. She had a hard time, lots of pain, but she has slowly made some progress. She has a history of previous stroke, myocardial infarction. Following her neck surgery, she suffered from congestive heart failure. She has an implanted cardiac defibrillator as well. She is currently stable from a cardiac standpoint. All medications were reviewed and reconciled. PAIN CLINIC PQRS ASSESSMENT: 1. History of osteoarthritis, is limited. Most of her pain is related to her spine. She does have some spondylosis. 2. BMI 30.3. She is watching her weight and carefully monitoring her diet, trying to lose some weight. 3. Blood pressure 149/86, heart rate 55. 4. Pain intensity /10. 5. Fall risk, none in the last 3 months. 6. No blood thinners. 7. History of hypertension, under treatment. All medications reviewed and reconciled. There are no changes. 8. She is on an opioid agreement signed in 2016. 9. She is at low risk for addiction, scoring 1 on the opioid risk tool. 10. Functional assessment still 36/70 suggesting interference in day-to-day activities. 11. She denies use of tobacco, alcohol or recreational drug use. PLAN: Refill and reprogramming intrathecal infusion pump. [address] [address] PAIN MANAGEMENT CONSULTATION Name: MARJORIE WING Room #: REG [facility].#: [id number] Admission: 12/14/18 ������������������ Attend Phys: Lc Reyes MD Discharge: ������������������ Date of : 50 Report #: [id number] PROCEDURE: Skin was prepped with ChloraPrep and anesthetized. A 22-gauge non-coring needle advanced into the intrathecal pump. Old medication removed and discarded per protocol. Pump was refilled with fentanyl, clonidine, bupivacaine and a reprogramming session was performed. That information is on the chart and was kept and checked by myself and nurse. Copy of the information was provided for the patient. Followup visit is planned in 2 months. Prescription for 1 additional month of oxycodone to get her through to her next appointment was provided. I have checked the [facility] Prescription Drug Monitoring Program and there is a concern on one of the prescriptions written by Dr. Adolfo Lopez. This was on the same day that she was to have received a prescription from Dr. Connor Rosales. I will confirm this through our records and call the pharmacy. ��������������������������������������������� <ELECTRONICALLY SIGNED> ���������������������������������������� By: Lc Reyes MD ��������������������������������������������� 12/17/18 0838 1641 0014 Lc Reyes MD /nt
== END | disposition home or self-care (01) ==
LOC: PAIN 06:57
DX: Z45.1 Encounter for adjustment and management of infusion pump (principal); G89.29 Other chronic pain; I13.0 Hypertensive heart and chronic kidney disease with heart failure and stage 1 through stage 4 chronic kidney disease, or unspecified chronic kidney disease; N18.9 Chronic kidney disease, unspecified; I50.9 Heart failure, unspecified; I25.2 Old myocardial infarction; Z98.890 Other specified postprocedural states; Z79.899 Other long term (current) drug therapy; Z95.810 Presence of automatic (implantable) cardiac defibrillator; Z88.2 Allergy status to sulfonamides; Z88.8 Allergy status to other drugs, medicaments and biological substances

== ENCOUNTER → 2019-01-18 | Outpatient (CLI) | payer OTHER ==
[~2019-01-18] VITALS: Ht 149.9 cm; Wt 68.6 kg
--- NOTE | ~2019-01-18 | HPC ---
[facility] José Luis Melendez [employer] [place] [address] PAIN MANAGEMENT CONSULTATION Name: MARJORIE WING Room #: REG SHERIF Hunt.#: [id number] Admission: 01/18/19 Attend Phys: cL Reyes MD Discharge: Date of : 50 Report #: [id number] THIS REPORT FOR: //name// CC: Physician staff Lc SUAREZ DATE OF SERVICE: 01/18/2019 Followup visit for management of intrathecal infusion pump. The patient returns to pain clinic today for renewal of her intrathecal medications and oral medications provided in supplement. She currently is receiving fentanyl, bupivacaine, clonidine through intrathecal pump. We are refilling her pump about every month. We cannot concentrate her medication further. The high dose of clonidine is a bit unique. She came to us from [place] on that dose and I have not really made efforts to taper it much over the course of the last several years. Her current fentanyl daily dose is 120 mcg per day. Her clonidine dose now too high to go further. We will have to consider perhaps readjusting her medication at a followup visit. I would favor increasing her fentanyl and reducing her clonidine daily concentrations. She reports her pain is adequately controlled at this time. PQRS REVIEW: 1. Diffuse osteoarthritis. She complains of pain now in her neck following her disk replacement, also has lumbar spondylosis. 2. BMI is 30.5. 3. Vital signs: Blood pressure 153/83, heart rate 57, respirations 16, O2 sat 100. 4. Pain intensity 8/10. 5. Denies falls over the last 3 months. 6. She is on no blood thinners. 7. She does have a history of hypertension. 8. Opioid agreement was signed many years ago and has been reinitiated within the last 3 years. I reviewed her medication use on the prescription drug monitoring program and there are no unexpected entries. Our clinic is the only provider of systemic opioids. She was instructed to carefully safeguard her medication. She is grateful for the additional pain relief that it provides. 9. She is considered a low risk for addiction by the ORT with score of 1. 10. Functional assessment score is 36/70. 11. Denies use of tobacco and alcohol. PHYSICAL EXAMINATION: GENERAL: She is very pleasant, outgoing female. VITAL SIGNS: As noted. [address] [address] PAIN MANAGEMENT CONSULTATION Name: MARJORIE WING Room #: REG [facility] Gilbert.#: [id number] Admission: 01/18/19 Attend Phys: Lc Reyes MD Discharge: Date of : 50 Report #: [id number] NECK: Examination of the neck reveals decreased range of motion and tenderness across her scar from previous surgery. CHEST: Clear. CARDIAC: Rhythm is regular. MUSCULOSKELETAL: She moves independently and walks with antalgic features. Spine is tender across the lumbosacral segment. Pump is in the right lower quadrant, nontender. IMPRESSION: 1. Chronic intractable pain syndrome, multiple pain generators including chronic low back pain with radiculopathy and cervicalgia, status post disk replacement. 2. Management of intrathecal infusion pump with reprogramming session. 3. Management of oxycodone under terms of written opioid agreement. PROCEDURE: Pump refill and reprogramming. Skin was prepped with ChloraPrep. Skin anesthetized and 22-gauge non-coring needle advanced into the pump. Old medication removed and discarded per protocol. Pump was refilled with 39.5 mL of combination of fentanyl, clonidine and bupivacaine. Reprogramming session was performed. She has a PTM device. Programming information was checked and a reprogramming sheet was provided to the patient at discharge. Followup visit is planned in the pain clinic in 1 month. I will begin tapering her clonidine at that time. By: [id number] Lc Reyes MD /nt
[2019-01-18 13:01] VITALS: BP 153/83
--- NOTE | 2019-01-18 13:20 | NUR ---
Pain Clinic Assessment: 1. History of Osteoarthritis: NECK SPINE History of Rheumatoid Arthritis: DENIES 2. Height: 4 ft. 11 in. 149.9 cm. Weight: 151.2 lb. oz. 68.584 kg. Patient's BMI: 30.5 3. Vital Signs: BP: 153/83 Pulse: 57 Resp: 16 Temp: 02 Sat: 100 ECG Mon: 4. Pain Intensity: 8 5. Fall Risk: Dizziness: N Needs help standing or walking: N Fallen in the last 3 months: N Fall risk comments: 6. Patient on Blood Thinner: None 7. History of Hypertension: Y 8. Opioid Therapy greater than 6 weeks: Y Opiate Contract Signed: 10/18/15 9. Risk Assessment Tool Provided: 1 LOW RISK 10. Functional Assessment Tool: 36/70 PER PT 11. Recreational Drug Use: Never Drug Type: Tobacco Use: Never Smoker Tobacco Type: Amount or Packs/day: How Many Years: Alcohol Use: No Frequency: Quant:
== END | disposition home or self-care (01) ==
LOC: PAIN 11-12 10:44
DX: Z45.1 Encounter for adjustment and management of infusion pump (principal); M19.90 Unspecified osteoarthritis, unspecified site; M47.896 Other spondylosis, lumbar region; I10 Essential (primary) hypertension; G89.29 Other chronic pain; Z88.8 Allergy status to other drugs, medicaments and biological substances; Z88.2 Allergy status to sulfonamides; Z79.899 Other long term (current) drug therapy

== ENCOUNTER → 2019-02-22 | Outpatient (CLI) | payer OTHER ==
[~2019-02-22] VITALS: Ht 149.9 cm; Wt 66.3 kg
[~2019-02-22] MED LIST changes: +OXYCODON-ACETA1 EAC1 PO
[2019-02-22 13:06] VITALS: BP 160/99
--- NOTE | 2019-02-22 13:21 | NUR ---
Pain Clinic Assessment: 1. History of Osteoarthritis: NECK SPINE History of Rheumatoid Arthritis: DENIES 2. Height: 4 ft. 11 in. 149.9 cm. Weight: 146.2 lb. oz. 66.316 kg. Patient's BMI: 29.5 3. Vital Signs: BP: 160/99 Pulse: 82 Resp: 18 Temp: 02 Sat: 100 ECG Mon: 4. Pain Intensity: 9 5. Fall Risk: Dizziness: N Needs help standing or walking: N Fallen in the last 3 months: N Fall risk comments: 6. Patient on Blood Thinner: None 7. History of Hypertension: Y 8. Opioid Therapy greater than 6 weeks: Y Opiate Contract Signed: 10/18/15 9. Risk Assessment Tool Provided: 1 LOW RISK 10. Functional Assessment Tool: 36/70 PER PT 11. Recreational Drug Use: Never Drug Type: Tobacco Use: Never Smoker Tobacco Type: Amount or Packs/day: How Many Years: Alcohol Use: No Frequency: Quant:
== END | disposition home or self-care (01) ==
LOC: PAIN 06:50
DX: Z45.1 Encounter for adjustment and management of infusion pump (principal); G89.29 Other chronic pain; M54.5 Low back pain; I10 Essential (primary) hypertension; I25.2 Old myocardial infarction; M96.1 Postlaminectomy syndrome, not elsewhere classified; Z98.890 Other specified postprocedural states; Z79.899 Other long term (current) drug therapy; Z79.891 Long term (current) use of opiate analgesic; Z88.2 Allergy status to sulfonamides; Z88.8 Allergy status to other drugs, medicaments and biological substances; Z95.0 Presence of cardiac pacemaker; Z86.73 Personal history of transient ischemic attack (TIA), and cerebral infarction without residual deficits

== ENCOUNTER → 2019-04-08 | Outpatient (CLI) | payer OTHER ==
[~2019-04-08] VITALS: Ht 149.9 cm; Wt 69.5 kg
--- NOTE | ~2019-04-08 | HPC ---
[facility] [place] [address] PAIN MANAGEMENT CONSULTATION Name: MARJORIE WING Room #: REG SHERIF HanksLuisLatoya.#: [id number] Admission: 04/08/19 Attend Phys: Lc Reyes MD Discharge: Date of : 50 Report #: [id number] THIS REPORT FOR: //name// CC: Physician staff Lc Fofana MD DATE OF SERVICE: 04/08/2019 Followup visit for management of intrathecal infusion pump. The patient returns to pain clinic today with her significant other. She has low reservoir alarm on her pump, but typically with this 40 mL pump. There is about a 5 mL differential between her refill volumes. I told her that if we had difficulty and did not get volume back when we aspirated that we would take her to the fluoroscopic suite. We were able to obtain volume back and refill the pump in the normal fashion. She has recently had eye surgery for cosmetic reasons. She has another eye surgery scheduled. Otherwise, there have been no significant changes in her health history. PQRS: Positive for osteoarthritis of the neck and lumbar spine with spondylitic changes throughout. Her BMI is 30.9. Blood pressure 158/99, heart rate 73, respirations 16, O2 sat 98. She scores her pain intensity with a laugh at 10/10. We should take that with a grain of salt. She is not a fall risk and has not fallen in the last 6 months. She is on no blood thinners, but is treated for hypertension. I did review all of her medications and reconciled them from the electronic medical record. I provided her with medications for pain under terms of an opioid agreement. She last signed her agreement in 2015. Her last prescription was for oxycodone 7.5/325, #90 tablets on 02/22/2019. Her next prescription should be due towards the end of March. I will renew them per our agreement. She will carefully safeguard her medications. I also reviewed her prescription drug monitoring program information prior to any prescriptions. There are no unexpected entries from others. She denies use of tobacco or alcohol. PHYSICAL EXAMINATION: GENERAL: She is pleasant and upbeat and positive. Her affect belies. Her pain score of 10/10. VITAL SIGNS: Blood pressure is 158/99, heart rate 73, respirations 16. BMI is [address] [address] PAIN MANAGEMENT CONSULTATION Name: MARJORIE WING Room #: REG [facility].#: [id number] Admission: 04/08/19 Attend Phys: Lc Reyes MD Discharge: Date of : 50 Report #: [id number] 30.5. Pump is in the right lower quadrant, nontender. CHEST: Clear. CARDIAC: Rhythm is regular. MUSCULOSKELETAL: Her right lower eyelid shows evidence of surgery, which is healing nicely with no evidence of infection or redness. IMPRESSION: 1. Chronic intractable pain syndrome. Post-laminectomy syndrome with radiculopathy. 2. Management of intrathecal infusion pump with reprogramming and refill. 3. Management of opioid medications under opioid agreement with continued tapering. PROCEDURE: After informed consent, the skin was prepped with ChloraPrep. Skin was anesthetized. A 22-gauge non-coring needle advanced into the pump and old medication was removed and discarded per protocol. She had 5 mL remaining. Her pump registered 0. A refill was performed and reprogramming session checked by myself and the nurse, copy given to the patient and a copy placed on her record. Followup visit is planned for her next refill in May 2019. Pain medications renewed under terms of our agreement. By: [id number] Lc Reyes MD /nt
[2019-04-08 12:37] VITALS: BP 158/99
--- NOTE | 2019-04-08 12:44 | NUR ---
Pain Clinic Assessment: 1. History of Osteoarthritis: NECK SPINE History of Rheumatoid Arthritis: Not Applicable 2. Height: 4 ft. 11 in. 149.9 cm. Weight: 153.2 lb. oz. 69.491 kg. Patient's BMI: 30.9 3. Vital Signs: BP: 158/99 Pulse: 73 Resp: 16 Temp: 02 Sat: 98 ECG Mon: 4. Pain Intensity: 10 5. Fall Risk: Dizziness: N Needs help standing or walking: N Fallen in the last 3 months: N Fall risk comments: 6. Patient on Blood Thinner: None 7. History of Hypertension: Y 8. Opioid Therapy greater than 6 weeks: Y Opiate Contract Signed: 10/18/15 9. Risk Assessment Tool Provided: LOW RISK 0/3 10. Functional Assessment Tool: 11. Recreational Drug Use: Never Drug Type: Tobacco Use: Never Smoker Tobacco Type: Amount or Packs/day: How Many Years: Alcohol Use: No Frequency: Quant:
== END | disposition home or self-care (01) ==
LOC: PAIN 06:45
DX: Z45.1 Encounter for adjustment and management of infusion pump (principal); G89.4 Chronic pain syndrome; M54.16 Radiculopathy, lumbar region; M96.1 Postlaminectomy syndrome, not elsewhere classified; I10 Essential (primary) hypertension; M19.90 Unspecified osteoarthritis, unspecified site; Z98.890 Other specified postprocedural states; Z79.891 Long term (current) use of opiate analgesic; Z79.82 Long term (current) use of aspirin; Z79.899 Other long term (current) drug therapy; Z88.2 Allergy status to sulfonamides; Z88.8 Allergy status to other drugs, medicaments and biological substances

== ENCOUNTER → 2019-05-17 | Outpatient (CLI) | payer OTHER ==
[~2019-05-17] VITALS: Ht 149.9 cm; Wt 71.1 kg
--- NOTE | ~2019-05-17 | HPC ---
[facility] [address] [address] PAIN MANAGEMENT CONSULTATION Name: MARJORIE WING Room #: REG SHERIF Hunt.#: [id number] Admission: 05/17/19 Attend Phys: Lc Reyes MD Discharge: Date of : 50 Report #: [id number] THIS REPORT FOR: cc: SERGIO SUAREZ MD Physician not on staff Lc Reyes MD ~ THIS REPORT FOR: //name// CC: Physician staff Lc Suarez MD DATE OF SERVICE: 05/17/2019 Followup visit for management of intrathecal infusion pump with refill and reprogramming. The patient returns to clinic today for refill of her pump. I think we need to change the concentrations, I am seeing her almost every 6 weeks. She has also quite a bit of medicine remaining in her pump today at refill. Her pump infuses fentanyl, clonidine and bupivacaine and I am reducing the clonidine at today's visit. I have agreed to renew her Percocet and gabapentin, which she uses for breakthrough pain. She is on an opioid agreement. We reviewed the terms of that agreement. I have checked the prescription drug monitoring program information and there are no unexpected entries. She has had urine drug testing in the past and there is no unexpected substance in her urine. She carefully safeguards her medication. She was last seen on 04/08/2009. There have been no significant changes in her health history since that time. PHYSICAL EXAMINATION: GENERAL: Pleasant, alert and oriented. No signs of depression, anxiety or overmedication. She moves independently from sitting to standing position, her gait is antalgic. VITAL SIGNS: Her blood pressure 130/84, heart rate 58, respirations 14. BACK: She has some pain and tenderness across her low back and her scar from previous surgery. She has mild straight leg raising discomfort. CHEST: Clear. CARDIAC: Rhythm is regular. IMPRESSION: 1. Chronic intractable low back pain, post-laminectomy syndrome with [facility] [address] [place] [address] PAIN MANAGEMENT CONSULTATION Name: MARJORIE WING Room #: [facility]#: [id number] Admission: 05/17/19 Attend Phys: Lc Reyes MD Discharge: Date of : 50 Report #: [id number] radiculopathy. 2. Management of intrathecal infusion pump. 3. Renewal of opioid medications under terms of opioid agreement. PROCEDURE: After informed consent, she was placed in the supine position. Skin prepped with ChloraPrep. A 22-gauage non-coring needle advanced in the pump. Old medication removed and discarded per protocol. The remaining medications were discharged per that same protocol. The pump was then refilled with fentanyl, bupivacaine and clonidine at a reduced dose. Reprogramming session was performed reducing her clonidine by about 20%. Her discharge dose is fentanyl 119 mcg per day, clonidine 868 mcg, and bupivacaine 11.9 mg per day. Her CINDY on this current pump is 48 months. Her next scheduled refill is on 03/24. I will increase her fentanyl and clonidine correspondingly and/or bupivacaine in order to extend her pump refill time. By: [id number] Lc Reyes MD /nt
[2019-05-17 13:25] VITALS: BP 130/84
--- NOTE | 2019-05-17 13:49 | NUR ---
Pain Clinic Assessment: 1. History of Osteoarthritis: NECK SPINE History of Rheumatoid Arthritis: DENIES 2. Height: 4 ft. 11 in. 149.9 cm. Weight: 156.8 lb. oz. 71.124 kg. Patient's BMI: 31.7 3. Vital Signs: BP: 130/84 Pulse: 58 Resp: 14 Temp: 02 Sat: 97 ECG Mon: 4. Pain Intensity: 8 5. Fall Risk: Dizziness: N Needs help standing or walking: N Fallen in the last 3 months: N Fall risk comments: 6. Patient on Blood Thinner: None 7. History of Hypertension: Y 8. Opioid Therapy greater than 6 weeks: Y Opiate Contract Signed: 10/18/15 9. Risk Assessment Tool Provided: LOW RISK 0/3 10. Functional Assessment Tool: 11. Recreational Drug Use: Never Drug Type: Tobacco Use: Never Smoker Tobacco Type: Amount or Packs/day: How Many Years: Alcohol Use: No Frequency: Quant:
== END | disposition home or self-care (01) ==
LOC: PAIN 06:57
DX: Z45.1 Encounter for adjustment and management of infusion pump (principal); G89.29 Other chronic pain; M96.1 Postlaminectomy syndrome, not elsewhere classified; M54.16 Radiculopathy, lumbar region; Z98.890 Other specified postprocedural states; Z79.891 Long term (current) use of opiate analgesic; Z79.899 Other long term (current) drug therapy

== ENCOUNTER → 2019-06-28 | Outpatient (CLI) | payer OTHER ==
[~2019-06-28] VITALS: Ht 149.9 cm; Wt 69.0 kg
[~2019-06-28] MED LIST changes: +PRAVASTATIN SOD20 MG PO
[2019-06-28 13:01] VITALS: BP 152/91
--- NOTE | 2019-06-28 13:27 | NUR ---
Pain Clinic Assessment: 1. History of Osteoarthritis: NECK SPINE History of Rheumatoid Arthritis: DENIES 2. Height: 4 ft. 11 in. 149.9 cm. Weight: 152.2 lb. oz. 69.037 kg. Patient's BMI: 30.7 3. Vital Signs: BP: 152/91 Pulse: 70 Resp: 14 Temp: 02 Sat: 100 ECG Mon: 4. Pain Intensity: 8 5. Fall Risk: Dizziness: Y Needs help standing or walking: N Fallen in the last 3 months: N Fall risk comments: 6. Patient on Blood Thinner: None 7. History of Hypertension: Y 8. Opioid Therapy greater than 6 weeks: Y Opiate Contract Signed: 10/18/15 9. Risk Assessment Tool Provided: LOW RISK 0/3 10. Functional Assessment Tool: 11. Recreational Drug Use: Never Drug Type: Tobacco Use: Never Smoker Tobacco Type: Amount or Packs/day: How Many Years: Alcohol Use: No Frequency: Quant:
--- NOTE | 2019-07-01 12:09 | HPC ---
[facility] [place] [address] PAIN MANAGEMENT CONSULTATION Name: MARJORIE WING Room #: REG SHERIF Hunt.#: [id number] Admission: 06/28/19 Attend Phys: Lc Reyes MD Discharge: Date of : 50 Report #: [id number] THIS REPORT FOR: cc: SERGIO SUAREZ MD Physician not on staff Lc Reyes MD ~ CC: Physician staff Lc Suarez MD DATE OF SERVICE: 06/28/2019 Followup visit for chronic low back pain with radiculopathy. The patient returns to Pain Clinic for pump refill. She has been hospitalized recently for back pain and upper respiratory tract infection in [place]. She was released just recently and is doing a bit better, but says that her pain is worse in her back. She has a PTM device attached to her intrathecal pump, which allows her to provide additional doses. She has been using them freely. She complains of 7.5 oxycodone tablets are not as effective as the 10/325. I have agreed to go ahead and provide her with a 10/325 tablets. I reviewed her use of medication on the prescription drug monitoring program information from [facility]. She has not been taking the entire month of medicine, although she tells me she takes 6 tablets at one time. I refilled only one prescription today. We will see how long this prescription lasts. I do not think she is requiring breakthrough medications as often as she is using her PTM device. PQRS REVIEW: Positive for spinal stenosis, spondylosis and some complaints of arthritis of large joints, hips and knees. BMI is 30.7, blood pressure 152/91, heart rate 70, respirations 14, O2 sat 100, pain intensity 8/10. She is a fall risk and complaining of dizziness. She needs some assistance getting around and her common law , Alvin, is here with her today. She is on no blood thinners. Denies history of hypertension. She has an opioid agreement signed 5 years ago. We reviewed the terms of that agreement, the importance of safeguarding all medicines. She reports benefit from medicines and denies side effects. She has completed an opioid risk tool and her score is 0 suggesting that she is at low risk for addiction. She does not smoke nor does she use alcohol. PHYSICAL EXAMINATION: [facility] [address] [place] [address] PAIN MANAGEMENT CONSULTATION Name: MARJORIE WING Room #: REG [facility]#: [id number] Admission: 06/28/19 Attend Phys: Lc Reyes MD Discharge: Date of : 50 Report #: [id number] GENERAL: She seems to be a little bit of distress today. She was wearing a mask when I entered the room. She is not short of breath; however, with simple movements. She moans and groans as she moves from sitting to standing position, ambulates with marked antalgic features. CHEST: Reveals some mild expiratory wheezing. CARDIAC: Rhythm is regular. ABDOMEN: Soft. MUSCULOSKELETAL: Examination of the spine reveals marked tenderness across the lower lumbar segment. There is some straight leg raising discomfort as well consistent with radiculopathy. The pump is in the right lower quadrant, and nontender. IMPRESSION: 1. Chronic intractable low back pain, post-laminectomy syndrome with radiculopathy. 2. Management of opioid medication under terms of written opioid agreement. I carefully reviewed all of her medications, taking some time, in fact with her to review her prescriptions at [facility] in [place]. Her last refill for oxycodone was on 05/17/2019. An older prescription that she did not fill for oxycodone in December was returned to the clinic and was destroyed. Urine drug screen was not performed today, but might be necessary at her next visit if medications are not clear. Her MME is now 45 once again. PROCEDURE: Refill and reprogramming of intrathecal pump. Skin was prepped with ChloraPrep. A 20-gauge non-coring needle advanced into the pump. Old medication removed and discarded per protocol. Pump refilled then with a combination of bupivacaine, clonidine and fentanyl. No changes in concentrations. Reprogramming, 15% increase due to her increased pain. I plan to see her back in the Pain Clinic in about a [id number]. PTM device was checked and is working appropriately. I reviewed all her information before she was discharged. <ELECTRONICALLY SIGNED> By: Lc Reyes MD 07/01/19 1209 1451 1629 Lc Reyes MD /nt
== END | disposition home or self-care (01) ==
LOC: PAIN 06:52
DX: M54.16 Radiculopathy, lumbar region (principal); G89.29 Other chronic pain; M96.1 Postlaminectomy syndrome, not elsewhere classified; Z79.891 Long term (current) use of opiate analgesic; Z98.890 Other specified postprocedural states; Z79.899 Other long term (current) drug therapy

== ENCOUNTER 2019-06-30 13:40 | Inpatient (IN) | payer OTHER ==
[~2019-06-30] VITALS: Ht 152.4 cm; Wt 76.5 kg
--- NOTE | ~2019-06-30 | HC ---
[facility] [place] [address] CONSULTATION Name: MARJORIE WING Room #: 214-P ADM IN M.R.#: [id number] Admission: 06/30/19 Attend Phys: Ángel Meek MD Discharge: Date of : 50 Report #: [id number] THIS REPORT FOR: cc: ABDIRASHID - Family physician unknown ABDIRASHID - Family physician unknown Eber Vilchis MD ~ CC: Ángel Meek [facility] unknown Eber Vilchis DATE OF SERVICE: 06/30/2019 NEPHROLOGY CONSULTATION REASON FOR CONSULTATION: Acute kidney injury and hyperkalemia. HISTORY OF PRESENT ILLNESS: This is a 68-year-old female who is not acting herself. She was very tremulous, had some muscle spasms, was not as alert as normal. She and her live in [place], [place]. He brought her here to the [facility] because of these aforementioned problems. The patient is only a marginal historian. She knows she has not felt well. She dates this is over the past few days. Her tells me it has been much more over the past 2-3 weeks. About 3-1/2 weeks ago, she developed respiratory symptoms and was admitted to the [facility] in [place], and given the diagnosis of influenza. She was given respiratory treatments and in over a week, she started to improve. They were told at that time that her kidney function was not normal and they were also told that her potassium level was high and she was treated for the hyperkalemia. She was given quite a bit of IV fluids. After a week, she was discharged to home. He said he took her back in the next day and she again was told she was "dehydrated." She was given more IV fluids. After another day, she was sent back home. That was about 2-1/2 weeks ago. Since that time, she has continued to do poorly. Appetite has been down. He has been trying to get some fluid in her, but he does not know how much. She is not passing much in the way of urine. It sounds like she is having difficulty passing urine and really cannot tell me either how often she urinates or the appearance of her urine. She denies any history of nephrolithiasis, urinary tract infections, hematuria or proteinuria. In looking back through her records here at [facility], she was in the hospital at least one time with C. diff and diarrheal illness. We had actually seen her back about 10 years ago when she was in with an acute kidney injury with GI losses. Her creatinine level was up to 5.4 at that time, but that readily improved. She had another episode in 2017 with a creatinine up to 2.7, which also got better quickly. She has never had a creatinine level as high as a 10.1. In addition, she had a potassium level of 7.5. She is chronically on a bit of lisinopril, although they are uncertain as to the dose. [address] [address] CONSULTATION Name: SHIVA WINGFranklyn Mitchell Room #: 214-P ADM IN M.R.#: [id number] Admission: 06/30/19 Attend Phys: Ángel Meek MD Discharge: Date of : 50 Report #: [id number] She has received albuterol, insulin, dextrose and some sodium bicarbonate. No history of nonsteroidal exposures. No contrast exposures that I can find. She has not been dramatically hypotensive. In fact, she was seen [address] Reyes of the pain control service and her blood pressure is 152/91 at that time with a heart rate of 70. PAST MEDICAL HISTORY: She had an ME and a cardiac arrest in 2006. She has AICD in place that has not been going off. She had admissions with Clostridium difficile and other GI illnesses. She has a chronic pain and the pain pump. In 2017, she also had a gastrointestinal bleed. MEDICATIONS ON ADMISSION: Include lisinopril, but the dose is unknown. Hydrocodone, it sounds like some omeprazole. ALLERGIES: LISTED TO ASPIRIN AND MORPHINE. It looks like she has a combination of bupivacaine, fentanyl and clonidine and her pain pump. FAMILY HISTORY: Noncontributory. SOCIAL HISTORY: The patient is , lives in [place], [place]. She is accompanied by her at this time. REVIEW OF SYSTEMS: Poor intake of food and fluids. Appetite is down. Denies nausea or vomiting. Denies diarrhea. Is not able to tell me that she is able to pass any urine on her own. It is tender in her abdomen. She says she has not passed much urine at all for some time. Denies headache. She has noticed some muscle tremulousness. She had some mild dyspnea. No cough, is unaware of fever. No recent edema. She has a chronic back pain. PHYSICAL EXAMINATION: GENERAL: Acutely ill-appearing 68-year-old female. VITAL SIGNS: Blood pressure 121/71, heart rate 98, respiratory rate 13, oxygen saturation 100%, temperature 98.1 degrees Fahrenheit. HEENT: Shows some conjunctival erythema. Oral mucosa is dry, but not parched. NECK: Supple without adenopathy, thyromegaly, JVD or bruit. CHEST: Clear bilaterally. HEART: Has a borderline tachycardia. No gallop or rub. ABDOMEN: Has no bowel sounds at least none that I can hear. Bladder is enlarged to percussion and she is tender on palpation. No CVA tenderness, but she does have chronic back pain. No peripheral edema. EXTREMITIES: She has 1+ peripheral pulses. No specific rashes are noted. Chest x-ray is clear bilaterally upon my viewing, AICD in place. I reviewed her ultrasound, which was just done, but is not yet reported. Kidneys are fairly normal in size. Bladder is enlarged. There appears to be [facility] [address] [place] [address] CONSULTATION Name: MARJORIE WING Room #: 214-[facility] [place] [facility].#: [id number] Admission: 06/30/19 Attend Phys: Ángel Meek MD Discharge: Date of : 50 Report #: [id number] some hydronephrosis on the right. I cannot see any stones at least one cyst on the left kidney. LABORATORY DATA: Sodium 135, potassium 7.5, chloride 105, bicarbonate 16, BUN 119, creatinine 10.1, glucose 92, AST 16, ALT 44, alkaline phosphatase 109, total bilirubin was 0.5, calcium 9.7, phosphorus 8.2, total protein 7.9, albumin 3.9. White count 5.5, hemoglobin 11.4, hematocrit 34.3, platelets 298,000. Differential on the white count, 54 neutrophils, 30 lymphocytes, 3 eosinophils, 1 basophil. Urinalysis, specific gravity 1.015, pH 5.5, negative dipstick. ASSESSMENT: 1. Acute kidney injury. Creatinine level at 10, would suggest that this has been going on for at least a week if not 1.5-2 weeks. According to her , she had elevated creatinine level at [place] 3 weeks ago. Her blood pressure is fairly good, although she is tachycardic. She does not look dramatically dry on exam. We will continue some IV fluids. I am more concerned about urinary obstruction with urinary retention in her bladder. We will get a Nagy placed and see how much urine was in there. We will keep her on the IV fluids. Her urinalysis is unremarkable including no proteinuria or hematuria, so at this point, I will start a big workup for glomerular disease as she has previously had fairly normal renal function. If it is obstruction, she should respond to a Nagy catheter and some IV fluids and we will see the creatinine come down fairly readily. 2. Hyperkalemia, severe. She has no EKG changes of hyperkalemia. We will stop her lisinopril. She has been treated with insulin, dextrose, albuterol and sodium bicarbonate. We will recheck her potassium level now and see what runs and then retreat as needed. We will keep her on the IV fluids. 3. History of cardiomyopathy with AICD in place. 4. Recent reported influenza. Her chest x-ray is totally clear. She is oxygenating well. She has no fevers, so I have nothing to suspect COVID-19 infection at this time. 5. Chronic pain syndrome with chronic pain pump. PLAN: 1. As she has already been treated in the past hour and a half, I will recheck a potassium level now. 2. Nagy catheter. 3. Fractional excretion of sodium. 4. IV normal saline at 125 mL per hour. 5. Follow up labs in the morning. 6. We will follow along closely in the care of this patient. By: [id number] Eber Vilchis MD /nt
[~2019-06-30 13:40] MED LIST changes: -PRAVASTATIN SOD20 MG PO
[2019-06-30 13:42] VITALS: BP 100/57
[2019-06-30 14:30] LABS: BASOPHILS 1.4 % (0.0-2.0); EOSINOPHILS 2.7 % (0.0-3.0); HEMATOCRIT 34.5 % (37.0-47.0); HEMOGLOBIN 11.4 gm/dL (12.0-15.0); MCH 29.2 pg (26.0-34.0); MCV 88.4 fL (80.0-100.0); MONOCYTES 11.8 % (1.0-8.0); PLATELET COUNT 298 thou/uL (150-400); POLYS 54.1 % (36.0-66.0); RDW 15.9 % (10.5-14.5); WBC 5.5 thou/uL (4.0-11.0)
[2019-06-30 14:50] LABS: ALBUMIN 3.9 g/dL (3.4-5.0); ANION GAP 14 mmol/L (7-16); BUN 119 mg/dL (7-18); CALCIUM 9.7 mg/dL (8.5-10.1); CHLORIDE 105 mmol/L (98-107); CO2 16 mmol/L (21-32); CREATININE 10.1 mg/dL (0.6-1.0); GLUCOSE 92 mg/dL (74-106); SGOT 16 U/L (15-37); SGPT 44 U/L (30-65); SODIUM 135 mmol/L (136-145); TOTAL BILIRUBIN 0.5 mg/dL (<0.1-1.0); TOTAL PROTEIN 7.4 g/dL (6.4-8.2); TROPONIN-I <0.06 ng/mL (<0.06)
[2019-06-30 14:53] LABS: POTASSIUM 7.5 mmol/L (3.5-5.1)
[2019-06-30 15:07] LABS: URINE BILIRUBIN NEGATIVE (Negative); URINE BLOOD NEGATIVE (Negative); URINE CLARITY CLEAR; URINE COLOR YELLOW; URINE GLUCOSE-RANDOM* NEGATIVE (Negative); URINE KETONES NEGATIVE (Negative); URINE LEUKOCYTES-REFLEX NEGATIVE (Negative); URINE NITRITE-REFLEX NEGATIVE (Negative); URINE PROTEIN (DIPSTICK) NEGATIVE (Negative); URINE SPECIFIC GRAVITY 1.015 (1.005-1.035); URINE UROBILINOGEN 0.2 E.U./dl (0.2-1.0)
[2019-06-30 17:23] LABS: PHOSPHORUS 8.2 mg/dL (2.5-4.9)
[2019-06-30 17:32] LABS: URINE CREATININE-RANDOM* 61.9 mg/dL
[2019-06-30 17:35] VITALS: BP 119/77
[2019-06-30 17:42] VITALS: BP 150/61
[2019-06-30 20:00] VITALS: BP 116/56
[2019-06-30] MEDS ORDERED: PRAVASTATIN SOD20 MG PO (20:36)
[2019-06-30 23:46] VITALS: BP 132/65
[2019-07-01 03:21] VITALS: BP 141/77
[2019-07-01 05:29] LABS: ABSOLUTE NEUTROPHILS 3.6 thou/uL (1.4-8.2); BASOPHILS 0.7 % (0.0-2.0); EOSINOPHILS 1.5 % (0.0-3.0); HEMATOCRIT 31.8 % (37.0-47.0); HEMOGLOBIN 10.5 gm/dL (12.0-15.0); LYMPHOCYTES 23.3 % (24.0-44.0); MCH 29.3 pg (26.0-34.0); MCV 88.8 fL (80.0-100.0); MONOCYTES 9.7 % (1.0-8.0); PLATELET COUNT 281 thou/uL (150-400); POLYS 64.8 % (36.0-66.0); RBC 3.58 mil/uL (4.20-5.00); RDW 15.6 % (10.5-14.5); WBC 5.6 thou/uL (4.0-11.0)
[2019-07-01 05:43] LABS: ALBUMIN 3.5 g/dL (3.4-5.0); CALCIUM 9.1 mg/dL (8.5-10.1); PHOSPHORUS 6.1 mg/dL (2.5-4.9)
[2019-07-01 05:59] LABS: POTASSIUM 7.1 mmol/L (3.5-5.1)
[2019-07-01 07:36] VITALS: BP 130/67
[2019-07-01 11:30] VITALS: BP 134/71
[2019-07-01 16:30] VITALS: BP 140/68
[2019-07-01 20:00] VITALS: BP 136/85
[2019-07-02 04:00] VITALS: BP 140/72
[2019-07-02 05:07] LABS: ALBUMIN 3.3 g/dL (3.4-5.0); CALCIUM 9.5 mg/dL (8.5-10.1); PHOSPHORUS 5.6 mg/dL (2.5-4.9)
[2019-07-02 05:16] LABS: POTASSIUM 6.5 mmol/L (3.5-5.1)
[2019-07-02 09:00] VITALS: BP 147/85
[2019-07-02 16:22] VITALS: BP 129/76
[2019-07-02 17:09] VITALS: BP 129/76
[2019-07-02 19:56] VITALS: BP 136/77
[2019-07-03] VITALS (9 sets, daily range): BP systolic 131–168; BP diastolic 72–103
[2019-07-03 06:14] LABS: ALBUMIN 2.6 g/dL (3.4-5.0); CALCIUM 7.7 mg/dL (8.5-10.1); PHOSPHORUS 3.6 mg/dL (2.5-4.9)
[2019-07-03 06:22] LABS: CREATININE 4.7 mg/dL (0.6-1.0); POTASSIUM 5.1 mmol/L (3.5-5.1)
[2019-07-04 04:40] VITALS: BP 149/85
[2019-07-04 05:02] LABS: ALBUMIN 3.1 g/dL (3.4-5.0); PHOSPHORUS 4.3 mg/dL (2.5-4.9); POTASSIUM 5.7 mmol/L (3.5-5.1)
[2019-07-04 07:50] VITALS: BP 161/103
[2019-07-04 08:00] VITALS: BP 157/104
[2019-07-04 12:59] VITALS: BP 157/104
[2019-07-04 14:48] VITALS: BP 157/104
--- NOTE | 2019-07-09 12:18 | EKG ---
[facility] [place] [address] ELECTROCARDIOGRAM REPORT Name: MARJORIE WING Room #: 214-[facility] M.R.#: [id number] Admission: 06/30/19 Attend Phys: Ángel Meek MD Discharge: 07/04/19 Date of : 50 Report #: [id number] THIS REPORT FOR: cc: FAM - Family physician unknown FAM - Family physician unknown Otto Nunes MD 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 07/01/19 0851 1421 1421 Otto Nunes MD, [facility] /EPI
== END 2019-07-04 14:55 | disposition home or self-care (01) | DRG 314 ==
LOC: ER 13:40 → 2N 15:42 → EROBS 15:42 → 2N 17:35
PROVIDERS: Hospitalist; Internal Medicine Nephrology; Nurse Practitioner; Nurse Practitioner Family; ADMIT Hospitalist
DX: I42.9 Cardiomyopathy, unspecified (principal); N17.0 Acute kidney failure with tubular necrosis; N13.30 Unspecified hydronephrosis; E87.5 Hyperkalemia; I25.10 Atherosclerotic heart disease of native coronary artery without angina pectoris; G89.4 Chronic pain syndrome; I50.9 Heart failure, unspecified; M54.9 Dorsalgia, unspecified; E78.5 Hyperlipidemia, unspecified; Z96.659 Presence of unspecified artificial knee joint; K59.00 Constipation, unspecified; G47.00 Insomnia, unspecified; G31.84 Mild cognitive impairment of uncertain or unknown etiology; M54.16 Radiculopathy, lumbar region; I25.2 Old myocardial infarction; Z95.0 Presence of cardiac pacemaker; Z86.73 Personal history of transient ischemic attack (TIA), and cerebral infarction without residual deficits; Z88.6 Allergy status to analgesic agent; Z88.2 Allergy status to sulfonamides; Z88.8 Allergy status to other drugs, medicaments and biological substances; Z90.710 Acquired absence of both cervix and uterus; Z79.899 Other long term (current) drug therapy
CPT/HCPCS: 10081

== ENCOUNTER → 2019-08-09 | Outpatient (CLI) | payer OTHER ==
[~2019-08-09] VITALS: Ht 149.9 cm; Wt 68.3 kg
[~2019-08-09] MED LIST changes: +PRAVASTATIN SOD20 MG PO
[2019-08-09 12:48] VITALS: BP 132/81
--- NOTE | 2019-08-09 13:06 | NUR ---
Pain Clinic Assessment: 1. History of Osteoarthritis: NECK SPINE History of Rheumatoid Arthritis: DENIES 2. Height: 4 ft. 11 in. 149.9 cm. Weight: 150.6 lb. oz. 68.312 kg. Patient's BMI: 30.4 3. Vital Signs: BP: 132/81 Pulse: 62 Resp: 14 Temp: 02 Sat: 100 ECG Mon: 4. Pain Intensity: 8 5. Fall Risk: Dizziness: N Needs help standing or walking: N Fallen in the last 3 months: N Fall risk comments: 6. Patient on Blood Thinner: None 7. History of Hypertension: Y 8. Opioid Therapy greater than 6 weeks: Y Opiate Contract Signed: 10/18/15 9. Risk Assessment Tool Provided: LOW RISK 0/3 10. Functional Assessment Tool: 11. Recreational Drug Use: Never Drug Type: Tobacco Use: Never Smoker Tobacco Type: Amount or Packs/day: How Many Years: Alcohol Use: No Frequency: Quant:
--- NOTE | 2019-08-10 18:18 | HPC ---
[facility] [address] [place] [address] PAIN MANAGEMENT CONSULTATION Name: MARJORIE WING Room #: REG SHERIF Hunt.#: [id number] Admission: 08/09/19 Attend Phys: Lc Reyes MD Discharge: Date of : 50 Report #: [id number] THIS REPORT FOR: cc: [facility] - Family physician unknown FAM - Family physician unknown Lc Reyes MD ~ CC: [facility] unknown Lc Fofana MD DATE OF SERVICE: 08/09/2019 Followup visit for chronic low back pain, radiculopathy. Management of intrathecal pump with refill, management of oral medications per opioid agreement. The patient is here today for refill of her intrathecal infusion pump, which contains 3 medicines fentanyl, bupivacaine and clonidine. Combination requires her to be seen at about 1-month interval despite her 40 mL pump. She is doing okay since her hospitalization for acute renal failure. We discussed that at some length today. 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 She has got a single kidney. She is more prone to developing issues related to dehydration. She has seen a central office operator and hopes to get a second opinion. Her pain today is scored as an 8/10. This is fairly typical. She has pain in her low back, but also cervical pain. PQRS review shows that she has osteoarthritis, mostly spondylosis. BMI is stable at 30.4. Blood pressure is 132/81, heart rate 62, respirations 14, O2 sat is 100. She is not a fall risk. She is on no blood thinners. She has a history of hypertension, under treatment. I do provide her with some opioids to use for breakthrough on her intrathecal infusion, although she does not use them on a daily basis. She was provided with Percocet 10/325, #90 tablets. She has used this cautiously and denies side effects. She is grateful to have them when she needs them and they do help her get through episodes of severe pain when she cannot manage with intrathecal infusion alone. She has no risk for addiction by the opioid risk tool as she scored 0. Her functional assessment score is pretty good at 14. She does not complain much of her pain even though she scores it highly. She denies tobacco and alcohol. She lives independently. PHYSICAL EXAMINATION: GENERAL: Pleasant, alert and oriented. She is wearing a mask because of the COVID restrictions. VITAL SIGNS: As noted. GENERAL: She moves independently from sitting to standing. Her gait is [facility] [address] [place] [address] PAIN MANAGEMENT CONSULTATION Name: MARJORIE WING Room #: REG [facility]#: [id number] Admission: 08/09/19 Attend Phys: Lc Reyes MD Discharge: Date of : 50 Report #: [id number] markedly antalgic. She has pain with forward flexion, extension and rotation. Tenderness across the lumbosacral spine. Pain is in the right lower abdomen and nontender. IMPRESSION: 1. Chronic intractable pain. 2. Management of intrathecal infusion pump. 3. Management of high risk medications with oral agreement. I did review her prescription drug monitoring information from 08/05/2019 and there are no unexpected entries either myself or Dr. Rosales from our clinic are the only providing physicians. She is also seeing nurse practitioner, Tori Ford. PROCEDURE: Refill and reprogramming of intrathecal infusion pump. Skin was prepped with ChloraPrep. A 22-gauge non-coring needle advanced into the pump. Old medication removed and discarded per protocol. Pump refilled with fentanyl, bupivacaine and clonidine. Daily dose will remain unchanged with the PTM. It is fentanyl 130, clonidine 945, bupivacaine 13. We have lowered her clonidine dose recently. I will continue to lower in the future as well. Information was reviewed and initialed by myself and the nurse, copy provided to the patient. Prescriptions provided for gabapentin and Percocet per our agreement for 2 months. I will see her back in the pain clinic in about 30-40 days. <ELECTRONICALLY SIGNED> By: Lc Reyes MD 08/10/19 1818 1445 1559 Lc Reyes MD /nt
== END | disposition home or self-care (01) ==
LOC: PAIN 06:56
DX: Z45.1 Encounter for adjustment and management of infusion pump (principal); G89.29 Other chronic pain; M54.16 Radiculopathy, lumbar region; I10 Essential (primary) hypertension; Z98.890 Other specified postprocedural states; Z79.899 Other long term (current) drug therapy; Z88.2 Allergy status to sulfonamides; Z88.8 Allergy status to other drugs, medicaments and biological substances

== ENCOUNTER → 2019-09-20 | Outpatient (CLI) | payer OTHER ==
[~2019-09-20] VITALS: Ht 149.9 cm; Wt 68.2 kg
[2019-09-20 14:23] VITALS: BP 130/74
--- NOTE | 2019-09-20 14:36 | NUR ---
Pain Clinic Assessment: 1. History of Osteoarthritis: NECK SPINE History of Rheumatoid Arthritis: DENIES 2. Height: 4 ft. 11 in. 149.9 cm. Weight: 150.4 lb. oz. 68.221 kg. Patient's BMI: 30.4 3. Vital Signs: BP: 130/74 Pulse: 56 Resp: 18 Temp: 02 Sat: 100 ECG Mon: 4. Pain Intensity: 10 5. Fall Risk: Dizziness: N Needs help standing or walking: N Fallen in the last 3 months: N Fall risk comments: 6. Patient on Blood Thinner: None 7. History of Hypertension: Y 8. Opioid Therapy greater than 6 weeks: Y Opiate Contract Signed: 10/18/15 9. Risk Assessment Tool Provided: LOW RISK 0/3 10. Functional Assessment Tool: 11. Recreational Drug Use: Never Drug Type: Tobacco Use: Never Smoker Tobacco Type: Amount or Packs/day: How Many Years: Alcohol Use: No Frequency: Quant:
--- NOTE | 2019-09-24 15:51 | HPC ---
[facility] [address] [place] [address] PAIN MANAGEMENT CONSULTATION Name: MARJORIE WING Room #: REG SHERIF Hunt.#: [id number] Admission: 09/20/19 Attend Phys: Lc Reyes MD Discharge: Date of : 50 Report #: [id number] THIS REPORT FOR: cc: ABDIRASHID - Family physician unknown ABDIRASHID - Family physician unknown Lc Reyes MD ~ CC: [facility] unknown Lc Reyes DATE OF SERVICE: 09/20/2019 Followup visit for low back pain, radiculopathy and management of intrathecal infusion pump. The patient is here today for refill of her intrathecal infusion pump. In addition, I also provide for her oxycodone 10/325 and she uses 90 tablets over about 40 days. She has been on these medicines for a long time. She is on an opioid agreement. She safeguards her medications. We will perform urine drug screen at her followup visit. Today, she has a patch of her eyes. She recently had surgery in [place] and reports that the patch will come off soon. I am not exactly sure what she had done and she could not explain thoroughly. We reviewed her medications. No changes will be made in her oral medications. She cannot take nonsteroidal anti-inflammatory drugs due to a solitary kidney. She remains on carvedilol, nitroglycerin for coronary artery disease, statin and gabapentin 100 mg q. 8 hours. PQRS: Positive for spondylosis, cervical and lumbar. BMI is 30.4, blood pressure 130/74, heart rate 56, respirations 16, pain intensity is 10/10 by her report. I did not __ today. She is not a fall risk recently. She is on no blood thinners. She is treated for hypertension. Her opioid agreement was reviewed and her risk tool, which is low. She has pretty low functional assessment score and is always positive and seems to be stoic about her chronic pain. She denies use of tobacco and alcohol. IMPRESSION: 1. Chronic intractable pain with longstanding use of intrathecal medications and a small amount of opioid for breakthrough. Her average daily dose is about 30 morphine milligram equivalents of oxycodone, which she carefully safeguards. I renewed her medications under terms of our written agreement. PROCEDURE: Refill and reprogramming intrathecal infusion pump. [address] [address] PAIN MANAGEMENT CONSULTATION Name: MARJORIE WING Room #: REG SHERIF Lino#: [id number] Admission: 09/20/19 Attend Phys: Lc Reyes MD Discharge: Date of : 50 Report #: [id number] Skin was prepped with ChloraPrep. A 20-gauge non-coring needle advanced in pump. Old medication removed and discarded. Pump was then refilled and reprogrammed. She has bupivacaine, clonidine and fentanyl in her intrathecal pump. No programming changes were made. She has a PTM device allows her to upper dose by about 40% a day. Her next refill is scheduled towards the end of September or early October, Followup visit is planned for refill in about a [id number] recommended. <ELECTRONICALLY SIGNED> By: Lc Reyes MD 09/24/19 1551 1824 Lc Reyes MD /nt
== END | disposition home or self-care (01) ==
LOC: PAIN 06:55
PROVIDERS: ATTEND Anesthesiology Pain Medicine
DX: Z45.1 Encounter for adjustment and management of infusion pump (principal); G89.29 Other chronic pain; M54.16 Radiculopathy, lumbar region; I10 Essential (primary) hypertension; Z79.891 Long term (current) use of opiate analgesic; Z98.890 Other specified postprocedural states; Z79.899 Other long term (current) drug therapy; Z88.2 Allergy status to sulfonamides; Z88.8 Allergy status to other drugs, medicaments and biological substances

== ENCOUNTER → 2019-11-01 | Outpatient (CLI) | payer OTHER ==
[~2019-11-01] VITALS: Ht 149.9 cm; Wt 68.0 kg
[~2019-11-01] MED LIST changes: +EXCEDRIN CAPLE1 EACH PO
--- NOTE | ~2019-11-01 | HPC ---
[facility] [address] [place] [address] PAIN MANAGEMENT CONSULTATION Name: MARJORIE WING Room #: REG SHERIF HuntLuis#: [id number] Admission: 11/01/19 Attend Phys: Lc Reyes MD Discharge: Date of : 50 Report #: [id number] THIS REPORT FOR: cc: [facility] - Family physician unknown FAM - Family physician unknown Lc Reyes MD ~ CC: [facility] unknown Lc Reyes DATE OF SERVICE: 11/01/2019 Followup visit for chronic low back pain with radiculopathy, management of intractable pain with intrathecal infusion pump and breakthrough oral medication. The patient is here today with her significant other Abelino. I refilled her intrathecal pump about every 6-8 weeks. We have been tapering her clonidine without difficulty. She is doing well over the course of the last 6 weeks. Her eyes are improved. There have been no significant changes in her visits to the Emergency Room. She is out of oral medication and her pain is therefore higher than usual 01/07. I agreed to renew it for her today. I reviewed the prescription drug monitoring program information and there are no unexpected entries. She assures me that she uses her medicine carefully. She safeguards her medicines and no others are allowed to use them. She denies side effects. Most of her pain relief was provided through her intrathecal pump, which provides bupivacaine, clonidine and fentanyl. The clonidine dose which was once quite high has been gradually tapered. The dose today will be 1200 mcg/mL as we keep her fentanyl dose stable. A slight increase in her fentanyl dose; however, may be in the offing. This will allow us to keep her from increasing her oral medicines. PQRS: Positive for spondylolisthesis. Pain in her neck and throughout her lumbar spine. Her BMI is 30.3. Blood pressure is 144/86, heart rate 64, respirations 18, O2 sat 100 with room air, using a mask. Pain intensity 10/10. She has not fallen in the last 3 months. She denies use of blood thinners. She is treated for hypertension and I reviewed her medications today with her. All prescription medications are listed including those that I provided gabapentin and oxycodone. She takes pravastatin, omeprazole, nitroglycerin as necessary for chest pain and carvedilol. She is on an opioid agreement, signed originally over 10 years ago. Now, she is on extended agreement for 2015. We reviewed the terms of our agreement and safeguarding tools to avoid harm to others. She denies use of benzodiazepines. She is at low risk for addiction scoring 6 on the ORT. She denies use of tobacco and alcohol. PHYSICAL EXAMINATION: [facility] [address] [place] [address] PAIN MANAGEMENT CONSULTATION Name: MARJORIE WING Room #: REG [facility].#: [id number] Admission: 11/01/19 Attend Phys: Lc Reyes MD Discharge: Date of : 50 Report #: [id number] VITAL SIGNS: As noted: GENERAL: She is pleasant, alert and oriented, outgoing and jovial. NECK: Reveals nicely healing scar from a recent surgery. CHEST: Clear. CARDIAC: Rhythm is regular. ABDOMEN: Soft. Pump is in the right lower quadrant, nontender. EXTREMITIES: No edema in the lower extremities. Palpable pulses. IMPRESSION: 1. Chronic intractable pain, chronic low back pain with radiculopathy, cervicalgia, status post ACDF and disk replacement. 2. Management of intrathecal infusion pump with refill and reprogramming session. 3. Management of oral medication oxycodone under terms of written opioid agreement. MEDICATIONS: In the intrathecal pump include bupivacaine, clonidine and fentanyl. PROCEDURE: Skin was prepped with ChloraPrep. A 22-gauge non-coring needle advanced in pump. Old medication removed and discarded. Pump was then refilled and reprogramming session was performed. A slight increase in the infusion was provided at her request. I increased the dose by 10% using her PTM. Followup visit is scheduled in the pain clinic in 1-1/2 months. By: [id number] [id number] Lc Reyes MD /nt
[2019-11-01 12:57] VITALS: BP 144/86
--- NOTE | 2019-11-01 13:13 | NUR ---
Pain Clinic Assessment: 1. History of Osteoarthritis: NECK SPINE History of Rheumatoid Arthritis: DENIES 2. Height: 4 ft. 11 in. 149.9 cm. Weight: 150.0 lb. oz. 68.040 kg. Patient's BMI: 30.3 3. Vital Signs: BP: 144/86 Pulse: 64 Resp: 18 Temp: 02 Sat: 100 ECG Mon: 4. Pain Intensity: 10 5. Fall Risk: Dizziness: N Needs help standing or walking: N Fallen in the last 3 months: N Fall risk comments: 6. Patient on Blood Thinner: None 7. History of Hypertension: Y 8. Opioid Therapy greater than 6 weeks: Y Opiate Contract Signed: 10/18/15 9. Risk Assessment Tool Provided: LOW RISK 0/3 10. Functional Assessment Tool: 11. Recreational Drug Use: Never Drug Type: Tobacco Use: Never Smoker Tobacco Type: Amount or Packs/day: How Many Years: Alcohol Use: No Frequency: Quant:
== END | disposition home or self-care (01) ==
LOC: PAIN 06:51
PROVIDERS: ATTEND Anesthesiology Pain Medicine
DX: Z45.1 Encounter for adjustment and management of infusion pump (principal); G89.29 Other chronic pain; M54.16 Radiculopathy, lumbar region; M54.2 Cervicalgia; I10 Essential (primary) hypertension; Z98.890 Other specified postprocedural states; Z79.899 Other long term (current) drug therapy; Z79.891 Long term (current) use of opiate analgesic

== ENCOUNTER → 2019-12-13 | Outpatient (CLI) | payer OTHER ==
[~2019-12-13] VITALS: Ht 149.9 cm; Wt 71.9 kg
--- NOTE | ~2019-12-13 | HPC ---
[facility] [address] [place] [address] PAIN MANAGEMENT CONSULTATION Name: MARJORIE WING Room #: REG SHERIF HuntLuis#: [id number] Admission: 12/13/19 Attend Phys: Lc Reyes MD Discharge: Date of : 50 Report #: [id number] THIS REPORT FOR: cc: [facility] - Family physician unknown [facility] - Family physician unknown Lc Reyes MD ~ CC: [facility] unknown Lc Reyes DATE OF SERVICE: 12/13/2019 Follow up visit for refill of intrathecal infusion pump. The patient returns to pain clinic today to refill her pump, which contains fentanyl, bupivacaine and clonidine. She also has a PTM device that she uses to provide additional activations. A reprogramming session indicates that she uses her PTM device liberally. She reports good relief of her pain with her intrathecal infusion. She has some oral opioids that she uses only for severe pain episodes and breakthrough, and has no need for additional prescriptions today. I reviewed her prescription drug monitoring program information and her last prescription for oxycodone was provided on 09/20/2019 for 90 tablets. PQRS: Positive for spinal pain, mostly cervical spondylosis, but some radiculopathy. She has had previous back surgeries. BMI is 30.3, blood pressure 144/86, heart rate 64, respirations 18, O2 sat 100. Pain intensity today is reportedly 10/10, but her impacted pain score is 18. She scores these with a laugh, so it is hard to tell what these numbers actually mean. She has not fallen while walking, but fell out of bed recently during the dream. She is on no blood thinners. Hypertension is treated by her primary care physician. She has a history of congestive heart failure. She is on an opioid agreement, last signed in 2015. Her opioid risk score is 0. She denies use of tobacco or alcohol. PHYSICAL EXAMINATION: GENERAL: Pleasant, alert and oriented, no signs of depression, anxiety or overmedication. CHEST: Clear. CARDIAC: Rhythm is regular today. ABDOMEN: Soft. Pump in the right lower quadrant, nontender. EXTREMITIES: No edema. IMPRESSION: Chronic intractable pain with radiculopathy. PROCEDURE: Refill and reprogramming of intrathecal infusion pump. Skin was prepped with ChloraPrep. A 22-gauge non-coring needle advanced into [place] [id number] PAIN MANAGEMENT CONSULTATION Name: MARJORIE WING Room #: REG [facility] [place]#: [id number] Admission: 12/13/19 Attend Phys: Lc Reyes MD Discharge: Date of : 50 Report #: [id number] the pump. Old medication removed and discarded. Pump was then refilled with her current regimen and reprogramming session was performed. Copies were provided to the patient after being checked by myself and the nurse and we will see her back in 1-2 months for refill. By: 1449 [id number] Lc Reyes MD /nt
[2019-12-13 13:46] VITALS: BP 141/75
--- NOTE | 2019-12-13 14:33 | NUR ---
Pain Clinic Assessment: 1. History of Osteoarthritis: NECK SPINE History of Rheumatoid Arthritis: DENIES 2. Height: 4 ft. 11 in. 149.9 cm. Weight: 158.6 lb. oz. 71.940 kg. Patient's BMI: 32.0 3. Vital Signs: BP: 141/75 Pulse: 71 Resp: 16 Temp: 02 Sat: 100 ECG Mon: 4. Pain Intensity: 6 5. Fall Risk: Dizziness: N Needs help standing or walking: N Fallen in the last 3 months: Y Fall risk comments: 6. Patient on Blood Thinner: None 7. History of Hypertension: Y 8. Opioid Therapy greater than 6 weeks: Y Opiate Contract Signed: 10/18/15 9. Risk Assessment Tool Provided: LOW RISK 0/3 10. Functional Assessment Tool: 11. Recreational Drug Use: Never Drug Type: Tobacco Use: Never Smoker Tobacco Type: Amount or Packs/day: How Many Years: Alcohol Use: No Frequency: Quant:
== END | disposition home or self-care (01) ==
LOC: PAIN 06:59
PROVIDERS: ATTEND Anesthesiology Pain Medicine
DX: G89.29 Other chronic pain (principal); M54.16 Radiculopathy, lumbar region; I10 Essential (primary) hypertension; Z79.899 Other long term (current) drug therapy; Z88.8 Allergy status to other drugs, medicaments and biological substances

== ENCOUNTER → 2020-01-24 | Outpatient (CLI) | payer OTHER ==
[~2020-01-24] VITALS: Ht 121.9 cm; Wt 70.7 kg
[~2020-01-24] MED LIST changes: +ENDOCET 10-3251 EACH PO
--- NOTE | ~2020-01-24 | HPC ---
[facility] [place] [address] PAIN MANAGEMENT CONSULTATION Name: MARJORIE WING Room #: REG SHERIF HuntLuis#: [id number] Admission: 01/24/20 Attend Phys: Lc Reyes MD Discharge: Date of : 50 Report #: [id number] CC: FAM unknown Lc Reyes DATE OF SERVICE: 01/24/2020 Followup visit to refill intrathecal infusion pump and for management of oral opioids under terms of written opioid agreement. I saw the patient just 1 month ago. Her pump refills are short and we will consider increasing the concentrations of her medications in order to lengthen them. We have been steadily lowering her clonidine dose and I will continue to do so. She reports today that her pain is adequately controlled. She does not need an adjustment. She has a PTM device, which she is not using extensively. She has 6 activations per 24 hours available to her. I also provide her with oxycodone 10/325 and she receives benefit from that medication as well using it cautiously under terms of written agreement. Urine drug screen will be performed at followup visit. PQRS REVIEW: Positive for chronic spondylosis with neck pain. BMI 32.0, slightly up. Blood pressure 166/91, heart rate 80, respirations 20, O2 sat 100%. Pain intensity 9/10, although her laughing demeanor would suggest that her pain is under better control. She has not fallen while walking. She is on no blood thinners. Her blood pressure is under treatment. All medicines were reviewed and reconciled. Her opioid agreement was signed last in 2015 and we reviewed the terms of that agreement. Her opioid risk tool score of 0. She scores fairly low on her functional assessment score 18/70. She denies use of tobacco and alcohol. PHYSICAL EXAMINATION: GENERAL: She is pleasant with no signs of overmedication, depression or anxiety. Pump is in the left lower quadrant, nontender. IMPRESSION: 1. Chronic intractable pain with lumbar radiculopathy. 2. Management of intrathecal infusion pump with refill reprogramming. 3. Management of high risk medications under terms of written opioid agreement. PROCEDURE: Refill and reprogramming. Skin was prepped with ChloraPrep ____. A non-coring needle advanced in pump. Old medication removed and discarded per protocol. Pump was then refilled with medication and reprogramming session performed without change. Information was provided to the patient. She will be discharged with a maximum daily dose of fentanyl 130 mcg, clonidine 782 mcg, bupivacaine 13 mg. I will see her back in February. By: [id number] Lc Reyes MD /nt
[2020-01-24 12:29] VITALS: BP 166/91
--- NOTE | 2020-01-24 12:36 | NUR ---
Pain Clinic Assessment: 1. History of Osteoarthritis: NECK SPINE History of Rheumatoid Arthritis: DENIES 2. Height: 4 ft. 11 in. 121.9 cm. Weight: 155.8 lb. oz. 70.670 kg. Patient's BMI: 47.6 3. Vital Signs: BP: 166/91 Pulse: 80 Resp: 20 Temp: 02 Sat: 100 ECG Mon: 4. Pain Intensity: 9 5. Fall Risk: Dizziness: N Needs help standing or walking: N Fallen in the last 3 months: Y Fall risk comments: FELL OUT OF BED, DREAMING 6. Patient on Blood Thinner: None 7. History of Hypertension: Y 8. Opioid Therapy greater than 6 weeks: Y Opiate Contract Signed: 10/18/15 9. Risk Assessment Tool Provided: LOW RISK 0/3 10. Functional Assessment Tool: 11. Recreational Drug Use: Never Drug Type: Tobacco Use: Never Smoker Tobacco Type: Amount or Packs/day: How Many Years: Alcohol Use: No Frequency: Quant:
== END | disposition home or self-care (01) ==
LOC: PAIN 06:50
PROVIDERS: ATTEND Anesthesiology Pain Medicine
DX: Z45.1 Encounter for adjustment and management of infusion pump (principal); G89.29 Other chronic pain; M54.16 Radiculopathy, lumbar region; I10 Essential (primary) hypertension; Z98.890 Other specified postprocedural states; Z79.899 Other long term (current) drug therapy; Z79.891 Long term (current) use of opiate analgesic; Z95.810 Presence of automatic (implantable) cardiac defibrillator; Z88.2 Allergy status to sulfonamides; Z88.8 Allergy status to other drugs, medicaments and biological substances

== ENCOUNTER → 2020-03-03 | Outpatient (CLI) | payer OTHER ==
[~2020-03-03] VITALS: Ht 149.9 cm; Wt 68.9 kg
--- NOTE | 2020-03-03 09:52 | NUR ---
Pain Clinic Assessment: 1. History of Osteoarthritis: NECK SPINE History of Rheumatoid Arthritis: DENIES 2. Height: 4 ft. 11 in. 149.9 cm. Weight: 151.8 lb. oz. 68.856 kg. Patient's BMI: 30.6 3. Vital Signs: BP: Pulse: 78 Resp: 16 Temp: 02 Sat: 98 ECG Mon: 4. Pain Intensity: 8 5. Fall Risk: Dizziness: N Needs help standing or walking: N Fallen in the last 3 months: N Fall risk comments: FELL OUT OF BED, DREAMING 6. Patient on Blood Thinner: None 7. History of Hypertension: Y 8. Opioid Therapy greater than 6 weeks: Y Opiate Contract Signed: 10/18/15 9. Risk Assessment Tool Provided: LOW RISK 0/3 10. Functional Assessment Tool: 11. Recreational Drug Use: Never Drug Type: Tobacco Use: Never Smoker Tobacco Type: Amount or Packs/day: How Many Years: Alcohol Use: No Frequency: Quant:
== END | disposition home or self-care (01) ==
LOC: PAIN 01-31 07:07
PROVIDERS: ATTEND Anesthesiology Pain Medicine
DX: Z45.1 Encounter for adjustment and management of infusion pump (principal); M54.16 Radiculopathy, lumbar region; G89.29 Other chronic pain; I12.9 Hypertensive chronic kidney disease with stage 1 through stage 4 chronic kidney disease, or unspecified chronic kidney disease; N18.9 Chronic kidney disease, unspecified; M19.90 Unspecified osteoarthritis, unspecified site; Z98.890 Other specified postprocedural states; Z79.899 Other long term (current) drug therapy; Z79.891 Long term (current) use of opiate analgesic; Z88.2 Allergy status to sulfonamides

== ENCOUNTER → 2020-04-10 | Outpatient (CLI) | payer OTHER ==
[~2020-04-10] VITALS: Ht 149.9 cm; Wt 69.8 kg
[2020-04-10 13:31] VITALS: BP 132/82
--- NOTE | 2020-04-10 13:36 | NUR ---
Pain Clinic Assessment: 1. History of Osteoarthritis: NECK SPINE History of Rheumatoid Arthritis: DENIES 2. Height: 4 ft. 11 in. 149.9 cm. Weight: 153.8 lb. oz. 69.763 kg. Patient's BMI: 31.0 3. Vital Signs: BP: 132/82 Pulse: 73 Resp: 16 Temp: 02 Sat: 100 ECG Mon: 4. Pain Intensity: 8 5. Fall Risk: Dizziness: N Needs help standing or walking: N Fallen in the last 3 months: N Fall risk comments: FELL OUT OF BED, DREAMING 6. Patient on Blood Thinner: None 7. History of Hypertension: Y 8. Opioid Therapy greater than 6 weeks: Y Opiate Contract Signed: 10/18/15 9. Risk Assessment Tool Provided: LOW RISK 0/3 10. Functional Assessment Tool: 11. Recreational Drug Use: Never Drug Type: Tobacco Use: Never Smoker Tobacco Type: Amount or Packs/day: How Many Years: Alcohol Use: No Frequency: Quant:
== END | disposition home or self-care (01) ==
LOC: PAIN 06:56
PROVIDERS: ATTEND Anesthesiology Pain Medicine
DX: M54.16 Radiculopathy, lumbar region (principal); M96.1 Postlaminectomy syndrome, not elsewhere classified; G89.29 Other chronic pain; I10 Essential (primary) hypertension; Z98.890 Other specified postprocedural states; Z79.899 Other long term (current) drug therapy

== ENCOUNTER → 2020-05-01 | Outpatient (CLI) | payer OTHER ==
[~2020-05-01] VITALS: Ht 149.9 cm; Wt 68.8 kg
[2020-05-01 13:13] VITALS: BP 164/84
--- NOTE | 2020-05-01 13:23 | NUR ---
Pain Clinic Assessment: 1. History of Osteoarthritis: NECK SPINE History of Rheumatoid Arthritis: DENIES 2. Height: 4 ft. 11 in. 149.9 cm. Weight: 151.6 lb. oz. 68.765 kg. Patient's BMI: 30.6 3. Vital Signs: BP: 164/84 Pulse: 84 Resp: 16 Temp: 02 Sat: 100 ECG Mon: 4. Pain Intensity: 8 5. Fall Risk: Dizziness: N Needs help standing or walking: N Fallen in the last 3 months: N Fall risk comments: FELL OUT OF BED, DREAMING 6. Patient on Blood Thinner: None 7. History of Hypertension: Y 8. Opioid Therapy greater than 6 weeks: Y Opiate Contract Signed: 10/18/15 9. Risk Assessment Tool Provided: LOW RISK 0/3 10. Functional Assessment Tool: 11. Recreational Drug Use: Never Drug Type: Tobacco Use: Never Smoker Tobacco Type: Amount or Packs/day: How Many Years: Alcohol Use: No Frequency: Quant:
== END | disposition home or self-care (01) ==
LOC: PAIN 06:52
PROVIDERS: ATTEND Anesthesiology Pain Medicine
DX: Z45.1 Encounter for adjustment and management of infusion pump (principal); M96.1 Postlaminectomy syndrome, not elsewhere classified; M54.16 Radiculopathy, lumbar region; M54.9 Dorsalgia, unspecified; G89.29 Other chronic pain; Z98.890 Other specified postprocedural states; Z79.899 Other long term (current) drug therapy; Z88.8 Allergy status to other drugs, medicaments and biological substances; Z88.2 Allergy status to sulfonamides

== ENCOUNTER → 2020-06-29 | Outpatient (CLI) | payer OTHER ==
[~2020-06-29] VITALS: Ht 149.9 cm; Wt 72.4 kg
[~2020-06-29] MED LIST changes: +GABAPENTIN100 MG PO
[2020-06-29 12:37] VITALS: BP 152/100
--- NOTE | 2020-06-29 12:46 | NUR ---
Pain Clinic Assessment: 1. History of Osteoarthritis: NECK SPINE History of Rheumatoid Arthritis: DENIES 2. Height: 4 ft. 11 in. 149.9 cm. Weight: 159.6 lb. oz. 72.394 kg. Patient's BMI: 32.2 3. Vital Signs: BP: 152/100 Pulse: 84 Resp: 16 Temp: 02 Sat: 100 ECG Mon: 4. Pain Intensity: 5 5. Fall Risk: Dizziness: N Needs help standing or walking: N Fallen in the last 3 months: N Fall risk comments: FELL OUT OF BED, DREAMING 6. Patient on Blood Thinner: None 7. History of Hypertension: Y 8. Opioid Therapy greater than 6 weeks: Y Opiate Contract Signed: 10/18/15 9. Risk Assessment Tool Provided: LOW RISK 0/3 10. Functional Assessment Tool: 11. Recreational Drug Use: Never Drug Type: Tobacco Use: Never Smoker Tobacco Type: Amount or Packs/day: How Many Years: Alcohol Use: No Frequency: Quant:
== END | disposition home or self-care (01) ==
LOC: PAIN 06:57
PROVIDERS: ATTEND Anesthesiology Pain Medicine
DX: Z45.1 Encounter for adjustment and management of infusion pump (principal); M54.16 Radiculopathy, lumbar region; M96.1 Postlaminectomy syndrome, not elsewhere classified; G89.29 Other chronic pain; I12.9 Hypertensive chronic kidney disease with stage 1 through stage 4 chronic kidney disease, or unspecified chronic kidney disease; N18.9 Chronic kidney disease, unspecified; Z98.890 Other specified postprocedural states; Z79.899 Other long term (current) drug therapy; Z88.2 Allergy status to sulfonamides; Z88.8 Allergy status to other drugs, medicaments and biological substances

== ENCOUNTER → 2020-08-24 | Outpatient (CLI) | payer OTHER ==
[~2020-08-24] VITALS: Ht 149.9 cm; Wt 68.0 kg
[2020-08-24 12:36] VITALS: BP 161/98
--- NOTE | 2020-08-24 12:39 | NUR ---
Pain Clinic Assessment: 1. History of Osteoarthritis: NECK SPINE History of Rheumatoid Arthritis: DENIES 2. Height: 4 ft. 11 in. 149.9 cm. Weight: 150.0 lb. oz. 68.040 kg. Patient's BMI: 30.3 3. Vital Signs: BP: 161/98 Pulse: 82 Resp: 16 Temp: 02 Sat: 97 ECG Mon: 4. Pain Intensity: 8 5. Fall Risk: Dizziness: N Needs help standing or walking: N Fallen in the last 3 months: N Fall risk comments: FELL OUT OF BED, DREAMING 6. Patient on Blood Thinner: None 7. History of Hypertension: Y 8. Opioid Therapy greater than 6 weeks: Y Opiate Contract Signed: 10/18/15 9. Risk Assessment Tool Provided: LOW RISK 0 10. Functional Assessment Tool: 11. Recreational Drug Use: Never Drug Type: Tobacco Use: Never Smoker Tobacco Type: Amount or Packs/day: How Many Years: Alcohol Use: No Frequency: Quant:
== END | disposition home or self-care (01) ==
LOC: PAIN 10:38
PROVIDERS: ATTEND Anesthesiology Pain Medicine
DX: Z45.1 Encounter for adjustment and management of infusion pump (principal); G89.29 Other chronic pain; M54.9 Dorsalgia, unspecified; M19.90 Unspecified osteoarthritis, unspecified site; Z98.890 Other specified postprocedural states; Z79.899 Other long term (current) drug therapy

== ENCOUNTER → 2020-10-23 | Outpatient (CLI) | payer OTHER ==
[~2020-10-23] VITALS: Ht 149.9 cm; Wt 66.2 kg
[~2020-10-23] MED LIST changes: +CIPRO500 M1 PO
[2020-10-23 13:27] VITALS: BP 104/59
--- NOTE | 2020-10-23 14:18 | NUR ---
Pain Clinic Assessment: 1. History of Osteoarthritis: NECK SPINE History of Rheumatoid Arthritis: DENIES 2. Height: 4 ft. 11 in. 149.9 cm. Weight: 146.0 lb. oz. 66.225 kg. Patient's BMI: 29.5 3. Vital Signs: BP: 104/59 Pulse: 57 Resp: 16 Temp: 02 Sat: 100 ECG Mon: 4. Pain Intensity: 10 5. Fall Risk: Dizziness: N Needs help standing or walking: N Fallen in the last 3 months: N Fall risk comments: FELL OUT OF BED, DREAMING 6. Patient on Blood Thinner: None 7. History of Hypertension: Y 8. Opioid Therapy greater than 6 weeks: Y Opiate Contract Signed: 10/18/15 9. Risk Assessment Tool Provided: LOW RISK 0 10. Functional Assessment Tool: 11. Recreational Drug Use: Never Drug Type: Tobacco Use: Never Smoker Tobacco Type: Amount or Packs/day: How Many Years: Alcohol Use: No Frequency: Quant:
== END | disposition home or self-care (01) ==
LOC: PAIN 11:15
PROVIDERS: ATTEND Anesthesiology Pain Medicine
DX: Z45.1 Encounter for adjustment and management of infusion pump (principal); M96.1 Postlaminectomy syndrome, not elsewhere classified; M50.10 Cervical disc disorder with radiculopathy, unspecified cervical region; G89.29 Other chronic pain; I10 Essential (primary) hypertension; Z98.890 Other specified postprocedural states; Z79.899 Other long term (current) drug therapy; Z88.2 Allergy status to sulfonamides; Z88.8 Allergy status to other drugs, medicaments and biological substances

== ENCOUNTER → 2020-12-25 | Outpatient (CLI) | payer OTHER ==
[~2020-12-25] VITALS: Ht 149.9 cm; Wt 64.5 kg
[2020-12-25 13:02] VITALS: BP 151/88
--- NOTE | 2020-12-25 13:11 | NUR ---
Pain Clinic Assessment: 1. History of Osteoarthritis: NECK SPINE History of Rheumatoid Arthritis: DENIES 2. Height: 4 ft. 11 in. 149.9 cm. Weight: 142.2 lb. oz. 64.501 kg. Patient's BMI: 28.7 3. Vital Signs: BP: 151/88 Pulse: 80 Resp: 16 Temp: 02 Sat: 100 ECG Mon: 4. Pain Intensity: 6 5. Fall Risk: Dizziness: N Needs help standing or walking: N Fallen in the last 3 months: N Fall risk comments: FELL OUT OF BED, DREAMING 6. Patient on Blood Thinner: None 7. History of Hypertension: Y 8. Opioid Therapy greater than 6 weeks: Y Opiate Contract Signed: 10/18/15 9. Risk Assessment Tool Provided: LOW RISK 0 10. Functional Assessment Tool: 11. Recreational Drug Use: Never Drug Type: Tobacco Use: Never Smoker Tobacco Type: Amount or Packs/day: How Many Years: Alcohol Use: No Frequency: Quant:
== END | disposition home or self-care (01) ==
LOC: PAIN 10:17
PROVIDERS: ATTEND Anesthesiology Pain Medicine
DX: Z45.1 Encounter for adjustment and management of infusion pump (principal); M96.1 Postlaminectomy syndrome, not elsewhere classified; M54.12 Radiculopathy, cervical region; G89.29 Other chronic pain; I11.0 Hypertensive heart disease with heart failure; I50.9 Heart failure, unspecified; Z98.890 Other specified postprocedural states; Z79.899 Other long term (current) drug therapy; Z79.891 Long term (current) use of opiate analgesic; Z88.2 Allergy status to sulfonamides; Z88.8 Allergy status to other drugs, medicaments and biological substances

== ENCOUNTER → 2021-02-19 | Outpatient (CLI) | payer OTHER ==
[~2021-02-19] VITALS: Ht 149.9 cm; Wt 66.7 kg
[~2021-02-19] MED LIST changes: +ENDOCET 7.5-321 EACH PO
[2021-02-19 12:52] VITALS: BP 143/86
--- NOTE | 2021-02-19 13:20 | NUR ---
Pain Clinic Assessment: 1. History of Osteoarthritis: NECK SPINE History of Rheumatoid Arthritis: DENIES 2. Height: 4 ft. 11 in. 149.9 cm. Weight: 147.0 lb. oz. 66.679 kg. Patient's BMI: 29.7 3. Vital Signs: BP: 143/86 Pulse: 65 Resp: 14 Temp: 02 Sat: 100 ECG Mon: 4. Pain Intensity: 6 5. Fall Risk: Dizziness: N Needs help standing or walking: N Fallen in the last 3 months: N Fall risk comments: FELL OUT OF BED, DREAMING 6. Patient on Blood Thinner: None 7. History of Hypertension: Y 8. Opioid Therapy greater than 6 weeks: Y Opiate Contract Signed: 10/18/15 9. Risk Assessment Tool Provided: LOW RISK 0 10. Functional Assessment Tool: 11. Recreational Drug Use: Never Drug Type: Tobacco Use: Never Smoker Tobacco Type: Amount or Packs/day: How Many Years: Alcohol Use: No Frequency: Quant:
== END | disposition home or self-care (01) ==
LOC: PAIN 08:30
PROVIDERS: ATTEND Anesthesiology Pain Medicine
DX: Z45.1 Encounter for adjustment and management of infusion pump (principal); G89.29 Other chronic pain; I10 Essential (primary) hypertension; Z98.890 Other specified postprocedural states; Z79.899 Other long term (current) drug therapy; Z88.2 Allergy status to sulfonamides; Z88.8 Allergy status to other drugs, medicaments and biological substances

== ENCOUNTER → 2021-04-24 | Outpatient (CLI) | payer OTHER ==
[~2021-04-24] VITALS: Ht 149.9 cm; Wt 65.3 kg
[~2021-04-24] MED LIST changes: +NARCAN4 MG NARES
[2021-04-24 10:44] VITALS: BP 110/69
--- NOTE | 2021-04-24 11:11 | NUR ---
Pain Clinic Assessment: 1. History of Osteoarthritis: NECK SPINE History of Rheumatoid Arthritis: DENIES 2. Height: 4 ft. 11 in. 149.9 cm. Weight: 144.0 lb. oz. 65.318 kg. Patient's BMI: 29.1 3. Vital Signs: BP: 110/69 Pulse: 63 Resp: 16 Temp: 02 Sat: 97 ECG Mon: 4. Pain Intensity: 10 5. Fall Risk: Dizziness: N Needs help standing or walking: N Fallen in the last 3 months: N Fall risk comments: FELL OUT OF BED, DREAMING 6. Patient on Blood Thinner: None 7. History of Hypertension: Y 8. Opioid Therapy greater than 6 weeks: Y Opiate Contract Signed: 10/18/15 9. Risk Assessment Tool Provided: LOW RISK 0 10. Functional Assessment Tool: 11. Recreational Drug Use: Never Drug Type: Tobacco Use: Never Smoker Tobacco Type: Amount or Packs/day: How Many Years: Alcohol Use: No Frequency: Quant:
== END | disposition home or self-care (01) ==
LOC: PAIN 09:36
PROVIDERS: ATTEND Anesthesiology Pain Medicine
DX: Z45.1 Encounter for adjustment and management of infusion pump (principal); M54.16 Radiculopathy, lumbar region; G89.29 Other chronic pain; M96.1 Postlaminectomy syndrome, not elsewhere classified; I10 Essential (primary) hypertension; M19.90 Unspecified osteoarthritis, unspecified site; Z98.890 Other specified postprocedural states; Z79.899 Other long term (current) drug therapy; Z88.2 Allergy status to sulfonamides; Z88.8 Allergy status to other drugs, medicaments and biological substances